=== PATIENT | male | born 1955 | race Caucasian/White ===

== ENCOUNTER → 2019-03-24 | Outpatient (CLI) | payer OTHER ==
[~2019-03-24] MED LIST: ACHD5005 PO; CATHETER FLUSH 10 ML SYR IV PRN; ELQUIS; HOLD METFORMIN - RECEIVED CONTRAST 20 ML VIAL IV SCH; IOHEXOL 350 MG/ML 100 ML (OMNIPAQUE 350) VIAL IV ONE; NS 100 ML (IVPB) BAG IV ONE; SULF1TAB35 PO; TMSL.4C PO
[2019-03-24 16:07] LABS: BUN/CREATININE RATIO 15; CREATININE SERUM 0.88 MG/DL (0.60-1.30); GFR ESTIMATED > 60
== END ==
LOC: RAD 15:00
PROVIDERS: ATTEND Internal Medicine Cardiovascular Disease
DX: I82.412 Acute embolism and thrombosis of left femoral vein (principal); I10 Essential (primary) hypertension; R00.0 Tachycardia, unspecified
CPT/HCPCS: 36415; 82565; 84520

== ENCOUNTER → 2019-03-24 | Outpatient (CLI) | payer OTHER ==
[~2019-03-24] MED LIST changes: -CATHETER FLUSH 10 ML SYR IV PRN; -HOLD METFORMIN - RECEIVED CONTRAST 20 ML VIAL IV SCH; -IOHEXOL 350 MG/ML 100 ML (OMNIPAQUE 350) VIAL IV ONE; -NS 100 ML (IVPB) BAG IV ONE
--- NOTE | 2019-03-24 13:16 | Diagnostic Imaging Report ---
PROCEDURE: US left lower extremity venous. TECHNIQUE: Multiple real-time grayscale images were obtained over the left lower extremity in various projections. Additional duplex Doppler and color Doppler images were also obtained. INDICATION: Leg pain and swelling. COMPARISON: There are no prior studies available for comparison. FINDINGS: There is extensive thrombosis of the deep venous system of the left lower extremity. The thrombus involves the common femoral, superficial femoral, popliteal and anterior and posterior tibial veins. IMPRESSION: 1. There is an extensive deep venous thrombosis of the left lower extremity. 2. These results were called to Lily Peter APRN at 12:15 by our sonologist. CRITICAL FINDING Dictated by: Dictated on workstation # [id number]
== END ==
LOC: RAD 11:43
PROVIDERS: ATTEND Nurse Practitioner Family
DX: R22.42 Localized swelling, mass and lump, left lower limb (principal); R03.0 Elevated blood-pressure reading, without diagnosis of hypertension

== ENCOUNTER 2019-03-28 09:44 | Emergency (ER) | payer OTHER ==
[~2019-03-28] VITALS: Ht 177.7 cm; Wt 106.8 kg
[2019-03-28] MEDS ORDERED: HOLD METFORMIN - RECEIVED CONTRAST 20 ML VIAL IV SCH (10:45)
[2019-03-28] MEDS ORDERED: IOHEXOL 350 MG/ML 100 ML (OMNIPAQUE 350) VIAL IV ONE (10:45)
[2019-03-28] MEDS ORDERED: CATHETER FLUSH 10 ML SYR IV PRN (10:45)
[2019-03-28] MEDS ORDERED: NS 100 ML (IVPB) BAG IV ONE (10:45)
[2019-03-28 10:49] LABS: BILIRUBIN,URINE NEGATIVE (NEGATIVE); CLARITY,URINE SL CLOUDY; COLOR,URINE BROWN; GLUCOSE, URINE (UA) NEGATIVE (NEGATIVE); KETONES,URINE NEGATIVE (NEGATIVE); LEUKOCYTE ESTERASE ,URINE TRACE (NEGATIVE); NITRITE,URINE NEGATIVE (NEGATIVE); PH,URINE 6.5 (5-9); PROTEIN,URINE 2+ (NEGATIVE)
--- NOTE | 2019-03-28 10:53 | ED GU-Male ---
General Chief Complaint: - Urinary Stated Complaint: BLOOD CLOT LEFT LEG Nursing Triage Note: AMB TO ROOM WITH REPORTS THAT MAR 24 WAS DX WITH BLOOD CLOT IN R LEG. STARTED ON ELQUIS NOTICED BLOOD IN URNE BEFORE STARTING ON ELQUIS. HAVNG INTERMITTEN LOW ABD PAIN. Source: patient, family () Exam Limitations: no limitations (CYNTHIA PICKENS MEDICAL STUDENT) History of Present Illness Date Seen by Provider: Mar 28, 2019 Time Seen by Provider: 10:33 Initial Comments Mr. Meléndez is a 63 year-old male presenting to the ED via private vehicle for he maturia. Patient reports that he has had painless hematuria since 03/20/19. This ranges from tea colored to bright red blood. He has a chronic cough for the last 2-3 months and he has found that frequent coughing increases the blood in the urine. Patient was started on Eloquis on 03/24/19 after being diagnosed with a proximal femoral dvt. He did not report the symptoms of hematuria at that time because the hematuria was intermittent and he was not bleeding on that particular day. He also reports a dull ache in the suprapubic region of his abdomen. It does not radiate. He does not describe any true pain, more of an uncomfortable pressure. His cough has been present since December. It is non-productive but has worsened the last two weeks. He is now up at night frequently coughing. He recently went to urgent care and was diagnosed with walking pneumonia and started on Doxycycline. Patient had one episode of fever on 03/25/19. Fever was 100.4 and lasted only one night. He denies nausea, vomiting, or diarrhea. He does admit to 20-lb weight loss in the last 3 months. He attributes this to giving up [employer], which was difficult for him. Patient is a never smoker, does not drink alcohol or use drugs. His occupation is a [employer] seth. (CYNTHIA PICKENS MEDICAL STUDENT) Allergies and Home Medications Allergies Coded Allergies: No Allergy Information Available (Unverified , 03/24/19) Home Medications Hydrocodone Bit/Acetaminophen 1 Tab Tab, 1 EACH PO Q4-6HR PRN for PAIN-MODERATE Prescribed by: VJ MOYER on 03/28/19 1240 Sulfamethoxazole/Trimethoprim 1 Each Tablet, 1 EACH PO BID Prescribed by: VJ MOYER on 03/28/19 1240 Tamsulosin HCl 0.4 Mg Cap, 0.4 MG PO DAILY Prescribed by: VJ MOYER on 03/28/19 1240 Patient Home Medication List Home Medication List Reviewed: Yes (VJ MOYER APRN) Review of Systems Review of Systems Constitutional: chills, fever (1 episode of fever on 03/25/19. Lasted only one day with a temperature of 100.4; afebrile since.), malaise, weight loss (see HPI) EENTM: no symptoms reported, other (Denies visual disturbances, sore throat) Respiratory: see HPI, cough, dyspnea on exertion Gastrointestinal: see HPI, abdominal pain (Dull suprapubic ache. ) Genitourinary: hematuria, other (Denies dysuria, frequency, urgency, incontinence. ) Musculoskeletal: no symptoms reported, other (Denies myalgias or arthralgias) Skin: no symptoms reported, other (No recent rash) Psychiatric/Neurological: Other (Denies parasthesias, anesthesia) (CYNTHIA PICKENS MEDICAL STUDENT) Past Jbtphfm-Qspyba-Ppnrni Hx Patient Social History Recent Foreign Travel: No Contact w/Someone Who Travel: No Recent Infectious Disease Expo: No (CYNTHIA PICKENS MEDICAL STUDENT) Physical Exam Vital Signs Vital Signs - First Documented 03/28/19 10:10 Temp 36.8 Pulse 109 Resp 18 B/P (MAP) 159/100 (119) Pulse Ox 94 O2 Delivery Room Air (VJ MOYER APRN) Vital Signs Capillary Refill : Less Than 3 Seconds (CYNTHIA PICKENS MEDICAL STUDENT) Height, Weight, BMI Height: '" Weight: lbs. oz. kg; 33.00 BMI Method: General Appearance: WD/WN, no apparent distress HEENT: TMs normal, pharynx normal Cardiovascular: regular rate, rhythm, no edema, no murmur Respiratory: lungs clear, normal breath sounds, no respiratory distress Gastrointestinal: normal bowel sounds, soft, tenderness (Mild tenderness in the suprapubic region only. Increased "ache" with pressure) Back: normal inspection, no CVA tenderness Extremities: normal inspection, no pedal edema, no calf tenderness Neurologic/Psychiatric: no motor/sensory deficits, normal mood/affect Skin: normal color, warm/dry (CYNTHIA PICKENS MEDICAL STUDENT) Progress/Results/Core Measures Suspected Sepsis Recent Fever Within 48 Hours: No Infection Criteria Present: None New/Unexplained Altered Menta: No Sepsis Screen: No Definite Risk SIRS Temperature: Pulse: 109 Respiratory Rate: 18 Blood Pressure 159 /100 Mean: 119 (CYNTHIA PICKENS MEDICAL STUDENT) Results/Orders Lab Results Laboratory Tests Test 03/28/19 10:12 03/28/19 10:56 Range/Units Urine Color BROWN H Urine Clarity SL CLOUDY Urine pH 6.5 5-9 Urine Specific [place] 1.025 H 1.016-1.022 Urine Protein 2+ H NEGATIVE Urine Glucose (UA) NEGATIVE NEGATIVE Urine Ketones NEGATIVE NEGATIVE Urine Nitrite NEGATIVE NEGATIVE Urine Bilirubin NEGATIVE NEGATIVE Urine Urobilinogen 1.0 < = 1.0 MG/DL Urine Leukocyte Esterase TRACE NEGATIVE Urine RBC (Auto) 3+ H NEGATIVE Urine RBC TNTC H /HPF Urine WBC 10-25 H /HPF Urine Squamous Epithelial Cells RARE /HPF Urine Crystals PRESENT H /LPF Urine Calcium Oxalate Crystals RARE H /LPF Urine Bacteria NEGATIVE /HPF Urine Casts NONE /LPF Urine Mucus NEGATIVE /LPF Urine Culture Indicated YES White Blood Count 8.9 4.3-11.0 10^3/uL Red Blood Count 5.12 4.35-5.85 10^6/uL Hemoglobin 13.9 13.3-17.7 G/DL Hematocrit 41 40-54 % Mean Corpuscular Volume 81 80-99 FL Mean Corpuscular Hemoglobin 27 25-34 PG Mean Corpuscular Hemoglobin Concent 34 32-36 G/DL Red Cell Distribution Width 14.1 10.0-14.5 % Platelet Count 288 130-400 10^3/uL Mean Platelet Volume 9.4 7.4-10.4 FL Neutrophils (%) (Auto) 74 42-75 % Lymphocytes (%) (Auto) 7 L 12-44 % Monocytes (%) (Auto) 19 H 0-12 % Eosinophils (%) (Auto) 0 0-10 % Basophils (%) (Auto) 0 0-10 % Neutrophils # (Auto) 6.6 1.8-7.8 X 10^3 Lymphocytes # (Auto) 0.6 L 1.0-4.0 X 10^3 Monocytes # (Auto) 1.7 H 0.0-1.0 X 10^3 Eosinophils # (Auto) 0.0 0.0-0.3 10^3/uL Basophils # (Auto) 0.0 0.0-0.1 10^3/uL Neutrophils % (Manual) 78 % Lymphocytes % (Manual) 5 % Monocytes % (Manual) 13 % Eosinophils % (Manual) 0 % Basophils % (Manual) 0 % Band Neutrophils 4 % Blood Morphology Comment NORMAL Sodium Level 132 L 135-145 MMOL/L Potassium Level 4.4 3.6-5.0 MMOL/L Chloride Level 99 98-107 MMOL/L Carbon Dioxide Level 23 21-32 MMOL/L Anion Gap 10 5-14 MMOL/L Blood Urea Nitrogen 11 7-18 MG/DL Creatinine 0.80 0.60-1.30 MG/DL Estimat Glomerular Filtration Rate > 60 BUN/Creatinine Ratio 14 Glucose Level 129 H 70-105 MG/DL Calcium Level 9.5 8.5-10.1 MG/DL Corrected Calcium 10.0 8.5-10.1 MG/DL Total Bilirubin 0.8 0.1-1.0 MG/DL Aspartate Amino Transf (AST/SGOT) 31 5-34 U/L Alanine Aminotransferase (ALT/SGPT) 25 0-55 U/L Alkaline Phosphatase 139 H 40-136 U/L Total Protein 7.9 6.4-8.2 GM/DL Albumin 3.4 3.2-4.5 GM/DL (VJ MOYER APRN) My Orders Orders - VJ MOYER APRN Cbc With Automated Diff (03/28/19 10:35) Comprehensive Metabolic Panel (03/28/19 10:35) Ua Culture If Indicated (03/28/19 10:35) Ed Iv/Invasive Line Start (03/28/19 10:35) Chest Pa/Lat (2 View) (03/28/19 10:40) Urine Culture (03/28/19 10:12) Manual Differential (03/28/19 10:56) Ceftriaxone For Iv Use (Rocephin For I (03/28/19 11:15) Ct Abd/Pelvis Wo(Kidney Stone) (03/28/19 12:03) Ketorolac Injection (Toradol Injection) (03/28/19 13:30) Oxycodone/Apap 5/325mg Tablet (Percocet (03/28/19 13:30) (VJ MOYER APRN) Medications Given in ED Current Medications Medications Dose Ordered Sig/Olga Route Start Time Stop Time Status Last Admin Dose Admin Ceftriaxone Sodium 1000 mg/ Sterile Water 10 ml @ 200 mls/hr ONCE ONCE IV 03/28/19 11:15 03/28/19 11:17 DC 03/28/19 13:10 200 MLS/HR (VJ MOYER APRN) Vital Signs/I&O 03/28/19 10:10 Temp 36.8 Pulse 109 Resp 18 B/P (MAP) 159/100 (119) Pulse Ox 94 O2 Delivery Room Air (VJ MOYER APRN) Vital Signs/I&O Capillary Refill : Less Than 3 Seconds (CYNTHIA PICKENS MEDICAL STUDENT) Blood Pressure Mean: 119 Departure Communication (Admissions) NAME: PRATIK MELÉNDEZ [facility] REC#: [id number] PT STATUS: REG ER : 1955 PHYSICIAN: VJ MOYER APRN ADMIT DATE: 03/28/19/ER Draft Date of Exam:03/28/19 CT ABD/PELVIS WO(KIDNEY STONE) PROCEDURE: CT urinary tract, rule out kidney stone. TECHNIQUE: Multiple contiguous axial images were obtained through the abdomen and pelvis without the use of intravenous contrast. Auto Exposure Controls were utilized during the CT exam to meet ALARA standards for radiation dose reduction. INDICATION: Hematuria for 2 weeks. Patient has prior history of kidney stones. COMPARISON: No prior studies are available for comparison. FINDINGS: The lung bases are clear. Imaging through the lung bases demonstrates the lung bases to be clear. There are two prominent lymph nodes in the anterior mediastinum. The largest node measures 23 mm x 14 mm. The second node measures 17 mm x 11 mm. No discrete liver mass is detected. The gallbladder is unremarkable. No biliary ductal dilatation is seen. The pancreas and spleen are unremarkable. No adrenal mass is detected. There are calculi within both kidneys. A calculus in the mid left kidney measures 10 mm. There is a large calculus located in the right renal pelvis extending into a lower pole infundibulum measuring approximately 26 mm x 11 mm. There is also a 4 mm calculus in the mid right ureter at the level of L3. This does produce some hydronephrosis. No other ureteral calculi are seen. The bladder is unremarkable. The aorta is nonaneurysmal. There are prominent lymph nodes in the central retroperitoneum, left periaortic, and aortocaval locations. A conglomerate of nodes in the left periaortic location at the bifurcation measures approximately 4.0 x 2.7 cm. There are markedly enlarged lymph nodes in the left iliac chain. A left iliac node measures 5.7 x 4.6 cm. There is an obturator node on the left measuring 5.4 x 5.1 cm. There are prominent lymph nodes in the left inguinal region as well. The small and large bowel loops are of normal caliber. There is no obstruction. There is no free fluid or fluid collection. The appendix is unremarkable. The bony structures are nonacute. IMPRESSION: 1. Bilateral nephrolithiasis. There is a 4 mm calculus in the mid right ureter producing mild hydroureteronephrosis. 2. Central retroperitoneal and pelvic lymphadenopathy as well as enlarged lymph nodes in the anterior mediastinum. The findings are most consistent with a lymphoproliferative process such as lymphoma. No other significant abnormality is detected. Dictated on workstation # [id number] Dict: 03/28/19 1213 Trans: 03/28/19 1225 [id number] Interpreted by: VITALIY CHAVEZ MD Electronically signed by: [id number]-I've seen the patient along with medical student and agree with plan of care. His abdomen is round soft and nontender. He's had a cough for a couple of months, no improvement with doxycycline as of yet. He's had hematuria since starting the anticoagulation for DVT left leg. CT scan shows lymphoproliferative process which could represent a lymphoma. He will need to follow up with primary care to facilitate further management of this. I spoke with Dr. Chauncey Quintana who agrees to follow-up on the results of the lymph node biopsy. I spoke with Vitaliy Chavez from radiology here, he just needs an order for CT-guided lymph node biopsy and radiology nurse will call the patient with an appointment time and instructions on how long to hold the Eliquis prior to the biopsy. Results will be sent to Dr. Chauncey Quintana. Patient states he'll go by Chauncey stewards office on the way home to give insurance information and whatever else they might need to facilitate upcoming appointments. (VJ MOYER PROFESSOR OF GRAPHIC DESIGN) Impression Primary Impression: Lymphadenopathy, generalized Additional Impression: Right ureteral stone Disposition: HOME, SELF-CARE Condition: Stable Departure-Patient Inst. Decision time for Depature: 12:39 (VJ MOYER APRN) Referrals: NO,LOCAL PHYSICIAN (PCP) Primary Care Physician Patient Instructions: Kidney Stones (DC), LYMPH NODE SWELLING Add. Discharge Instructions: 1. Pain medication and Flomax as directed. Antibiotics as directed. Follow-up with primary care to further evaluate the lymph node enlargement seen in the chest abdomen and pelvis. Dr. Chauncey Quintana on [address] here in [place] has agreed to see you in follow-up on the lymph node biopsy results. If they have not called U by tomorrow afternoon with an appointment time, call the scheduling department at [phone], tell them you need a lymph node biopsy done, the order is already there and you just need an appointment time. All discharge instructions reviewed with patient and/or family. Voiced understanding. Scripts Sulfamethoxazole/Trimethoprim (Bactrim Ds Tablet) 1 Each Tablet 1 EACH PO BID, #14 TAB Prov: VJ MOYER APRN 03/28/19 Hydrocodone Bit/Acetaminophen (Hydrocodone/Acetaminophen 5/325mg Tablet) 1 Tab Tab 1 EACH PO Q4-6HR PRN for PAIN-MODERATE MDD 10 for 3 Days, #14 TAB Prov: VJ MOYER APRN 03/28/19 Tamsulosin HCl (Flomax) 0.4 Mg Cap 0.4 MG PO DAILY, #20 CAP Prov: VJ MOYER APRN 03/28/19 Copy Copies To 1: CHAUNCEY QUINTANA MD,SHANDAKEN MEDICAL STUDENT Mar 28, 2019 10:53 VJ MOYER APRN Mar 28, 2019 12:41
[2019-03-28 10:58] LABS: BACTERIA,URINE NEGATIVE /HPF; CALCIUM OXALATE CRYSTALS,UR RARE /LPF; RBC,URINE TNTC /HPF; SQUAMOUS EPITHELIAL CELL,UR RARE /HPF
[2019-03-28 11:04] LABS: BASOPHILS % (AUTO) 0 % (0-10); EOSINOPHILS % (AUTO) 0 % (0-10); HEMATOCRIT 41 % (40-54); HEMOGLOBIN 13.9 G/DL (13.3-17.7); LYMPHOCYTES # (AUTO) 0.6 X 10^3 (1.0-4.0); LYMPHOCYTES % (AUTO) 7 % (12-44); MEAN CORPUSCULAR HEMOGLOBIN 27 PG (25-34); MEAN CORPUSCULAR HGB CONC 34 G/DL (32-36); MEAN CORPUSCULAR VOLUME 81 FL (80-99); MEAN PLATELET VOLUME 9.4 FL (7.4-10.4); MONOCYTES # (AUTO) 1.7 X 10^3 (0.0-1.0); MONOCYTES % (AUTO) 19 % (0-12); NEUTROPHILS # (AUTO) 6.6 X 10^3 (1.8-7.8); NEUTROPHILS % (AUTO) 74 % (42-75); PLATELET COUNT 288 10^3/uL (130-400); RED CELL DISTRIBUTION WIDTH 14.1 % (10.0-14.5); WHITE BLOOD COUNT 8.9 10^3/uL (4.3-11.0)
[2019-03-28] MEDS ORDERED: ELQUIS (11:11)
[2019-03-28] MEDS ORDERED: cefTRIAXone FOR IV USE 1,000 MG in WATER (STERILE) FOR INJECTION 10 ML IV ONE (11:15)
[2019-03-28 11:25] LABS: ALANINE AMINOTRANSFERASE 25 U/L (0-55); ALBUMIN 3.4 GM/DL (3.2-4.5); ALKALINE PHOSPHATASE 139 U/L (40-136); BILIRUBIN,TOTAL 0.8 MG/DL (0.1-1.0); BUN/CREATININE RATIO 14; CALCIUM 9.5 MG/DL (8.5-10.1); CARBON DIOXIDE 23 MMOL/L (21-32); CHLORIDE 99 MMOL/L (98-107); GFR ESTIMATED > 60; GLUCOSE 129 MG/DL (70-105); POTASSIUM 4.4 MMOL/L (3.6-5.0); SODIUM 132 MMOL/L (135-145); TOTAL PROTEIN 7.9 GM/DL (6.4-8.2)
[2019-03-28 11:40] LABS: BAND NEUTROPHILS 4 %; BASOPHILS % (MANUAL) 0 %; EOSINOPHILS % (MANUAL) 0 %; LYMPHOCYTES % (MANUAL) 5 %; MONOCYTES % (MANUAL) 13 %; NEUTROPHILS % (MANUAL) 78 %; RBC MORPH NORMAL
--- NOTE | 2019-03-28 12:25 | Diagnostic Imaging Report ---
PROCEDURE: CT urinary tract, rule out kidney stone. TECHNIQUE: Multiple contiguous axial images were obtained through the abdomen and pelvis without the use of intravenous contrast. Auto Exposure Controls were utilized during the CT exam to meet ALARA standards for radiation dose reduction. INDICATION: Hematuria for 2 weeks. Patient has prior history of kidney stones. COMPARISON: No prior studies are available for comparison. FINDINGS: The lung bases are clear. Imaging through the lung bases demonstrates the lung bases to be clear. There are two prominent lymph nodes in the anterior mediastinum. The largest node measures 23 mm x 14 mm. The second node measures 17 mm x 11 mm. No discrete liver mass is detected. The gallbladder is unremarkable. No biliary ductal dilatation is seen. The pancreas and spleen are unremarkable. No adrenal mass is detected. There are calculi within both kidneys. A calculus in the mid left kidney measures 10 mm. There is a large calculus located in the right renal pelvis extending into a lower pole infundibulum measuring approximately 26 mm x 11 mm. There is also a 4 mm calculus in the mid right ureter at the level of L3. This does produce some hydronephrosis. No other ureteral calculi are seen. The bladder is unremarkable. The aorta is nonaneurysmal. There are prominent lymph nodes in the central retroperitoneum, left periaortic, and aortocaval locations. A conglomerate of nodes in the left periaortic location at the bifurcation measures approximately 4.0 x 2.7 cm. There are markedly enlarged lymph nodes in the left iliac chain. A left iliac node measures 5.7 x 4.6 cm. There is an obturator node on the left measuring 5.4 x 5.1 cm. There are prominent lymph nodes in the left inguinal region as well. The small and large bowel loops are of normal caliber. There is no obstruction. There is no free fluid or fluid collection. The appendix is unremarkable. The bony structures are nonacute. IMPRESSION: 1. Bilateral nephrolithiasis. There is a 4 mm calculus in the mid right ureter producing mild hydroureteronephrosis. 2. Central retroperitoneal and pelvic lymphadenopathy as well as enlarged lymph nodes in the anterior mediastinum. The findings are most consistent with a lymphoproliferative process such as lymphoma. No other significant abnormality is detected. Dictated by: Dictated on workstation # [id number]
--- NOTE | 2019-03-28 12:25 | Diagnostic Imaging Report ---
Clinical indication: Patient with walking pneumonia and has had a cough for 3 to 4 weeks. Exam: Chest x-ray PA and lateral views. Comparisons: None. Findings: Lungs/pleura: There is mild increased lung markings to both lungs which may be from chronic lung changes. There is minimal atelectasis or scarring in the periphery of both lung bases. There is no lung infiltrate. There is no pneumothorax. There is no pleural effusion. Mediastinum: There is mild prominence of the bilateral perihilar regions which may be related to lymphadenopathy. Pulmonary vasculature: Unremarkable. Heart: Unremarkable. Bones/extrathoracic soft tissue: There are mild hypertrophic spurs involving the thoracic spine. Impression: 1: There is no lung infiltrate or consolidation. There is minimal bibasilar atelectasis versus scarring. Mild chronic lung changes are seen. 2: There is mild prominence of the bilateral perihilar regions which may be related to lymphadenopathy. Dictated by: Dictated on workstation # [id number]
[2019-03-28] MEDS ORDERED: ACHD5005 PO (12:40)
[2019-03-28] MEDS ORDERED: TMSL.4C PO (12:40)
[2019-03-28] MEDS ORDERED: SULF1TAB35 PO (12:40)
[2019-03-28] MEDS ORDERED: oxyCODONE/APAP 5/325MG (PERCOCET 5) TABLET PO ONE (13:30)
[2019-03-28] MEDS ORDERED: KETOROLAC 30 MG/ML VIAL IVP ONE (13:30)
[2019-03-28 13:40] VITALS: BP 156/100
== END 2019-03-28 13:48 | disposition home or self-care (01) ==
LOC: EDUNIT# 09:44 → ER 09:44
DX: R59.1 Generalized enlarged lymph nodes (principal); N13.2 Hydronephrosis with renal and ureteral calculous obstruction; Z79.01 Long term (current) use of anticoagulants; Z86.718 Personal history of other venous thrombosis and embolism
CPT/HCPCS: 36415; 71046; 74176; 80053; 81000; 85007; 85027; 87088

== ENCOUNTER 2019-04-01 06:25 | Outpatient (CLI) | payer OTHER ==
[2019-04-01] VITALS (9 sets, daily range): BP systolic 139–155; BP diastolic 79–100
[~2019-04-01] VITALS: Ht 180.3 cm; Wt 106.8 kg
[2019-04-01 07:13] LABS: HEMOGLOBIN 12.7 G/DL (13.3-17.7); MEAN PLATELET VOLUME 9.1 FL (7.4-10.4); RED CELL DISTRIBUTION WIDTH 14.1 % (10.0-14.5); WHITE BLOOD COUNT 7.2 10^3/uL (4.3-11.0)
[2019-04-01 07:24] LABS: INR 1.3 (0.8-1.4)
[2019-04-01] MEDS ORDERED: NS IV 1000 ML 1,000 ML IV STA (08:08)
[2019-04-01] MEDS ORDERED: fentaNYL INJECTION 100 MCG/2 ML AMP IVP ONE (08:15)
[2019-04-01] MEDS ORDERED: LIDOCAINE 1% INJ 20 ML 20 ML VIAL INJ ONE (08:15)
[2019-04-01] MEDS ORDERED: MIDAZOLAM 2 MG/2 ML (VERSED) VIAL IVP ONE (08:15)
[2019-04-01] MEDS ORDERED: HYDROcodone/APAP 5 MG/325 MG (LORTAB) TAB PO PRN (09:30)
--- NOTE | 2019-04-01 09:32 | Pre-Op Note & Conscious Sedat ---
Pre-Operative Progress Note H&P Reviewed The H&P was reviewed, patient examined and no changes noted. Date H&P Reviewed: Apr 01, 2019 Time H&P Reviewed: 08:00 Pre-Op Diagnosis: Lymphadenopathy Conscious Sedation Pre-Proced Time 08:00 ASA Score 2 For ASA 3 and 4: Consider anesthesia and medical clearance. Also, for patients with a history of failed moderate sedation consider anesthesia. Airway Lungs Heart ASA score ASA 1: a normal healthy patient ASA 2: a patient with a mild systemic disease (mid diabetes, controlled hypertension, obesity ASA 3: a patient with a severe systemic disease that limits activity (angina, COPD, prior Myocardial infarction) ASA 4: a patient with an incapacitating disease that is a constant threat to life (CHF, renal failure) ASA 5: a moribund patient not expected to survive 24 hrs. (ruptured aneurysm) ASA 6: a declared brain- patient whose organs are being harvested. For emergent operations, add the letter E after the classification Mallampati Classification Grade 2 Sedation Plan Analgesia, Amnesia, Plan communicated to team members, Discussed options with patient/fam, Discussed risks with patient/fam The patient is an appropriate candidate to undergo the planned procedure, sedation, and anesthesia. The patient immediately re-assessed prior to indication. YAW QUACH MD Apr 01, 2019 09:32
--- NOTE | 2019-04-01 11:05 | Diagnostic Imaging Report ---
INDICATION: Left iliac lymphadenopathy. Patient presents for CT-guided biopsy. TECHNIQUE: All CT scans use one or more of the following dose optimizing techniques: automated exposure control, MA and/or KvP adjustment based on a patient size and exam type, or iterative reconstruction. PROCEDURE: Patient was brought to the CT suite and placed on the table in the supine position. Axial imaging through the lower abdomen and pelvis was performed to evaluate appropriate entry site. The study was performed utilizing conscious sedation with radiology nursing and constant patient monitoring. Patient was administered a total of 100 mcg of fentanyl intravenously and 1 mg of Versed intravenously. Total procedure time 7 minutes. Left lower quadrant was prepped and draped in usual sterile fashion. A small amount of 1% lidocaine was utilized for local anesthesia. An 18-gauge coaxial Temno needle was advanced and placed within enlarged left iliac lymph node. A total of five core biopsies were obtained. Needle was withdrawn and hemostasis was obtained using manual compression. Patient tolerated the procedure well and left the department in stable condition. IMPRESSION: Successful CT-guided core biopsy of enlarged lymph node in the left iliac region, utilizing conscious sedation. Pathology results are currently pending. Dictated by: Dictated on workstation # [id number]
== END 2019-04-01 11:35 | disposition home or self-care (01) ==
LOC: RAD 06:25 → SDC 09:22 → RAD 11:35
PROVIDERS: ATTEND Nurse Practitioner Family
DX: C81.7 Other Hodgkin lymphoma (principal); I82.409 Acute embolism and thrombosis of unspecified deep veins of unspecified lower extremity
CPT/HCPCS: 36415; 77012; 85027; 85610; 85730; 99156

== ENCOUNTER 2019-04-19 05:41 | Outpatient (CLI) | payer OTHER ==
[~2019-04-19] VITALS: Ht 172.7 cm; Wt 100.9 kg
[2019-04-19] MEDS ORDERED: APIX5TAB PO (13:18)
[2019-04-21] MEDS ORDERED: HYDR-34 PO (09:05)
== END 2019-04-19 13:19 | disposition home or self-care (01) ==
LOC: PREOP 05:41
PROVIDERS: ATTEND Surgery
DX: Z01.818 Encounter for other preprocedural examination (principal)

== ENCOUNTER 2019-05-02 05:34 | Outpatient (CLI) | payer OTHER ==
[~2019-05-02] VITALS: Ht 173 cm; Wt 100.9 kg
[~2019-05-02 05:34] MED LIST changes: +APIX5TAB PO; +HYDR-34 PO
[2019-05-04] MEDS ORDERED: HYDR15SO6 PO (13:15)
== END 2019-05-02 10:47 | disposition home or self-care (01) ==
LOC: PREOP 05:34
PROVIDERS: ATTEND Surgery
DX: Z01.818 Encounter for other preprocedural examination (principal)

== ENCOUNTER → 2019-05-03 | Outpatient (CLI) | payer OTHER ==
[~2019-05-03] MED LIST changes: +HYDR15SO6 PO
--- NOTE | 2019-05-04 08:24 | Diagnostic Imaging Report ---
PET/CT. INDICATION: Hodgkin's lymphoma, initial. EXAMINATION: After intravenous administration of 13.75 mCi of F18-FDG into the left antecubital fossa, a series of overlapping emission and transmission PET images was obtained. In the coronal, transaxial and sagittal planes, the area imaged extended from the skull base through the upper thighs. FINDINGS: Height is 5' 8", weight 222 lbs, and his blood glucose level was 91. There are no prior PET/CT examinations available for comparison. The CT abdomen/pelvis exam of 03/28/2019 did show central peritoneal and pelvic lymphadenopathy as well as enlarged lymph nodes in the anterior mediastinum. Reportedly, the patient has been recently diagnosed with Hodgkin's lymphoma. On this exam, there is intense hypermetabolic activity throughout numerous enlarged lymph nodes. The largest collection of nodes is in the left retroperitoneal and pelvic area. These nodes have a maximum SUV of 17.85. There is also a large subcarinal hypermetabolic mass with a maximum SUV of 13.7. Bilateral hilar and mediastinal nodes are also noted as well as hypermetabolic nodes in the left supraclavicular region. Inguinal adenopathy is noted as well. In addition to the soft tissue adenopathy, the spleen is also intensely hypermetabolic with a maximum SUV of 6.6. The spleen is prominent but not significantly enlarged. There are also hypermetabolic nodes in the kassie hepatis and there is even an isolated area of hypermetabolic activity in the right lobe of the liver. This has a maximum SUV of 6.9. In addition to the soft tissue involvement by neoplasm, there are also multiple foci of abnormal uptake in the osseous structures. The humeri and scapula are involved as well as numerous vertebral bodies of the cervical, thoracic, and lumbar spine. There are also areas of abnormal uptake within the sternum and ribs, the pelvis, and the femurs. The CT images failed to show any sign of an acute abnormality. There is a large 1.4 x 2.4 cm calculus in the right renal pelvis. A 0.4 x 0.9 cm calculus is also seen in the inferior pole of the left kidney. These findings were also present on the prior exam. The previous exam also noted a 4 mm calculus in the mid right ureter. This was producing partial obstruction of the right collecting system. That calculus appears to have passed into the bladder (image [id number]). IMPRESSION: 1. There are innumerable bulky hypermetabolic nodes in the retroperitoneum and pelvis on the left as well as the subcarinal region and néstor, the left supraclavicular region, and the kassie hepatis. The spleen is also hypermetabolic and there is an isolated lesion in the right lobe of the liver. Numerous bony lesions are evident as well. This appearance would be consistent with widespread neoplastic disease. 2. The obstruction of the right collecting system seen on the previous exam has diminished as the obstructive calculus is now present within the bladder. There are still large nonobstructive calculi in both kidneys. 3. There is no acute abnormality identified. Dictated by: Dictated on workstation # [id number]
== END ==
LOC: RAD 10:20
PROVIDERS: ATTEND Internal Medicine Hematology & Oncology
DX: C81.90 Hodgkin lymphoma, unspecified, unspecified site (principal); N21.0 Calculus in bladder

== ENCOUNTER 2019-05-04 11:20 | Day surgery (SDC) | payer OTHER ==
[2019-05-04] VITALS (8 sets, daily range): BP systolic 119–138; BP diastolic 79–86
[~2019-05-04] VITALS: Ht 172.7 cm; Wt 97.7 kg
[~2019-05-04 11:20] MED LIST changes: -HYDR15SO6 PO
[2019-05-04] MEDS ORDERED: LIDOCAINE PF 2% 5 ML (XYLOCAINE) VIAL ONE (11:50)
[2019-05-04] MEDS ORDERED: proPOfol 200 MG/20 ML (DIPRIVAN) VIAL IV ONE (11:50)
[2019-05-04] MEDS ORDERED: MIDAZOLAM 2 MG/2 ML (VERSED) VIAL ONE (11:50)
[2019-05-04] MEDS ORDERED: KETAMINE/NaCl 50 MG/5 ML SYRINGE (ED ONLY) ONE (11:50)
[2019-05-04] MEDS ORDERED: LACTATED RINGERS 1,000 ML IV PRN (11:51)
[2019-05-04] MEDS ORDERED: CATHETER FLUSH 10 ML SYR IV PRN (12:00)
[2019-05-04] MEDS ORDERED: ceFAZolin 2 GM/50 ML NS 50 ML IV ONE (12:00)
[2019-05-04] MEDS ORDERED: 0.9% SODIUM CHLORIDE PF INJ 20 ML VIAL ONE (12:24)
[2019-05-04] MEDS ORDERED: HEParin (CENTRAL IV FLUSH) 500 UNIT/5 ML SYR ONE (12:24)
[2019-05-04] MEDS ORDERED: BUP/EPI 0.5% 1:200,000 (SENSORCAINE) 30 ML VIAL ONE (12:24)
--- NOTE | 2019-05-04 13:13 | Progress Note-Pre Operative ---
Pre-Operative Progress Note H&P Reviewed The H&P was reviewed, patient examined and no changes noted. Date Seen by Provider: May 04, 2019 Time Seen by Provider: 13:00 Date H&P Reviewed: May 04, 2019 Time H&P Reviewed: 13:00 Pre-Operative Diagnosis: lymphoma MANJINDER YOU MD May 04, 2019 13:13
[2019-05-04] MEDS ORDERED: ACETAMINOPHEN 325 MG TABLET PO PRN (13:15)
[2019-05-04] MEDS ORDERED: ONDANSETRON 4 MG/2 ML (SDV) Z0FRAN IVP PRN (13:15)
[2019-05-04] MEDS ORDERED: HYDROcodone/APAP 5 MG/325 MG (LORTAB) TAB PO PRN (13:15)
[2019-05-04] MEDS ORDERED: HYDR15SO6 PO (13:15)
[2019-05-04] MEDS ORDERED: morphine INJ 10 MG/ML 1ML (SYR OR VIAL) IVP PRN ×2 (13:15)
--- NOTE | 2019-05-04 13:16 | Discharge Inst-Surgical ---
D/C Lap Instructions-KIDO New, Converted, or Re-Newed RX: RX on Chart Follow Up PRN Activity as tolerated Ok to access and use port at any time. Regular Diet Symptoms to Report: Fever over 101 degree F, Nausea/Vomiting Infection Signs and Symptoms to report: Increased redness, Foul odor of wound, Increased drainage Bathing instructions: May shower Operative Area Clean/Dry; Keep incision clean/dry If any problems/questions: Contact your physician or go to Emergency Room MANJINDER YOU MD May 04, 2019 13:16
--- NOTE | 2019-05-04 14:07 | Progress Note-Post Operative ---
Post-Operative Progess Note Surgeon (s)/Labeling Strategist (s) Surgeon MANJINDER YOU MD Labeling Strategist: none Pre-Operative Diagnosis lymphoma Post-Operative Diagnosis same Procedure & Operative Findings Date of Procedure 05/04/19 Procedure Performed/Findings left subclavian groshong cath placement under flouroscopy. Anesthesia Type mac with local Estimated Blood Loss Estimated blood loss (mL): minimal Specimens/Packing Specimens Removed none MANJINDER YOU MD May 04, 2019 14:07
--- NOTE | 2019-05-04 14:28 | Diagnostic Imaging Report ---
INDICATION: Undergoing catheter placement. TECHNIQUE: One intraprocedural image of the central upper chest. FINDINGS/ IMPRESSION: The hospital radiology department provided fluoroscopic imaging for the clinical service in support of an interventional procedure. A radiologist was not involved in the procedure. Please reference the operating provider's procedure note. Fluoroscopy Time: 5.7 seconds. Limited intraprocedural imaging of the upper chest demonstrates portions of a central line with tip over the right paramediastinal region. Dictated by: Dictated on workstation # [id number]
--- NOTE | 2019-05-04 14:45 | Diagnostic Imaging Report ---
Indication: PICC line placement Portable chest 2:34 PM There is bilateral hilar lymphadenopathy which is increased in size compared to exam dated 03/28/2019. Left subclavian Groshong catheter tip projects over the SVC. Lungs are clear. There are no effusions or pneumothoraces. IMPRESSION: Bilateral hilar lymphadenopathy Dictated by: Dictated on workstation # [id number]
--- NOTE | 2019-05-04 15:21 | NUR ---
HYDROCODONE RX NOT FOUND ON CHART, PT STATES HE DOES NOT FEEL LIKE HE NEEDS ONE. DR YOU ON UNIT AND UPDATED. PT TO CALL OFFICE IF NEED CHANGES.
--- NOTE | 2019-05-04 20:21 | OPERATIVE REPORT ---
DATE OF SERVICE: 05/04/2019 ATTENDING PRIMARY CARE PHYSICIAN: Dr. Chauncey Sagastume. INDICATIONS: The patient is a 63-year-old male who was referred over to us for left inguinal lymph node biopsy. He had reported in the middle of 03/2019, he was having issues with shortness of breath, cough and presented to urgent care and was diagnosed with pneumonia, started on antibiotics. He presented again on 03/24/2019 with left thigh swelling and was found to have a lower extremity DVT and was started on Eliquis. He also developed hematuria and underwent a chest x-ray and CT scan of the abdomen and was found to have bilateral nephrolithiasis and an incidental finding of lymphadenopathy of the inferior mediastinum and central retroperitoneal area left periaortic region and aortocaval region. There was also prominent, but smaller nodes of the left inguinal region. This was biopsied and consistent with a non-Hodgkin's lymphoma. He will require a Groshong implantable catheter for long-term IV access for chemotherapy administration. DESCRIPTION OF PROCEDURE: The patient was brought to the operating room, laid supine on the table. After adequate IV pain and sedative medications and monitored anesthesia care, the chest and neck were prepped and draped in standard surgical fashion. A 1% lidocaine with epinephrine was then used to anesthetize overlying skin in the left subclavian region. The left subclavian vein was then cannulated with drawing of venous blood. The guidewire was then inserted under fluoroscopy. A skin incision was then made using 15 blade and the dilator and sheath were then introduced over the guidewire. Dilator and guidewire were then removed and the Groshong catheter was placed until the catheter tip was at the superior vena caval -- right atrial junction. The sheath was then removed and the inner wire within the catheter was then removed. The catheter cut down to size and port placed onto the catheter. The skin incision was then extended laterally and a subcutaneous chest reservoir was then created between the subcutaneous fat as well as the anterior pectoralis fascia using blunt dissection as well as electrocautery with visualization of good hemostasis. The port was then placed in the reservoir and sutured to the anterior pectoralis fascia using interrupted 3-0 Vicryl sutures. The subcutaneous tissue was then reapproximated using 3-0 Vicryl interrupted sutures and the skin was closed using 4-0 Monocryl running subcuticular suture. Wound was then cleaned and covered with Dermabond. The patient tolerated the procedure well. We will get a post-procedure chest x-ray and once confirmation of placement, the catheter may be accessed and used at any time. Job ID: [id number] DocumentID: [id number] Dictated Date: 05/04/2019 14:12:04 Purchasing Agent Date: 05/04/2019 20:21:25 Dictated By: MANJINDER YOU MD
== END 2019-05-04 15:18 | disposition home or self-care (01) ==
LOC: SDC 11:20
PROVIDERS: ATTEND Surgery
DX: C81.90 Hodgkin lymphoma, unspecified, unspecified site (principal); I10 Essential (primary) hypertension; E66.9 Obesity, unspecified; Z79.01 Long term (current) use of anticoagulants; Z79.899 Other long term (current) drug therapy; Z68.32 Body mass index [BMI] 32.0-32.9, adult; Z80.0 Family history of malignant neoplasm of digestive organs
CPT/HCPCS: 71045; 87081

== ENCOUNTER → 2019-05-05 | Outpatient (CLI) | payer OTHER ==
[~2019-05-05] MED LIST changes: +CATHETER FLUSH 10 ML SYR IV PRN; +HEParin (CENTRAL IV FLUSH) 500 UNIT/5 ML SYR ONE; +HYDR15SO6 PO
--- NOTE | 2019-05-05 10:04 | Diagnostic Imaging Report ---
INDICATION: Hodgkin's lymphoma. No prior studies are available for comparison. Patient was administered 30.2 mCi technetium 99m pertechnetate labeled to the patient's red blood cells and 1st pass cardiac gated imaging was performed. Left ventricular ejection fraction is calculated to be 50%. IMPRESSION: Left ventricular ejection fraction of 50%. Dictated by: Dictated on workstation # [id number]
== END ==
LOC: CARD 08:52
PROVIDERS: ATTEND Internal Medicine Hematology & Oncology
DX: Z01.810 Encounter for preprocedural cardiovascular examination (principal); C81.90 Hodgkin lymphoma, unspecified, unspecified site
CPT/HCPCS: 78472

== ENCOUNTER 2019-06-03 13:41 | Emergency (ER) | payer OTHER ==
[~2019-06-03] VITALS: Ht 120 cm; Wt 91.0 kg
[~2019-06-03 13:41] MED LIST changes: -CATHETER FLUSH 10 ML SYR IV PRN; -HEParin (CENTRAL IV FLUSH) 500 UNIT/5 ML SYR ONE
[2019-06-03] MEDS ORDERED: KETOROLAC 30 MG/ML VIAL IVP ONE (13:45)
[2019-06-03] MEDS ORDERED: NS IV 1000 ML 1,000 ML IV SCH (13:45)
[2019-06-03] MEDS ORDERED: ONDANSETRON 4 MG/2 ML (SDV) Z0FRAN IVP ONE (13:45)
--- OUTSIDE RECORDS SUMMARY | 2019-06-03 13:47 | XMS REPORT | Continuity of Care Document ---
Author Organization Unknown Address Unknown Phone Unavailable Allergies Active Description Code Type Severity Reaction Onset Reported/Identified Relationship to Patient Clinical Status Yes No Allergy Information Available [id number] Drug Allergy Unknown N/A 020 Yes No Known Drug Allergies [id number] Drug Allergy Unknown N/A 04/19/2019 Medications There is no data. Problems Date Dx Coded Attending Type Code Diagnosis Diagnosed By 03/28/2019 RAYMOND BUCK APRN, Ot R03 .0 ELEVATED BLOOD-PRESSURE READING, W/O DANE 03/28/2019 RAYMOND BUCK APRN Ot R22.42 LOCALIZED SWELLING, MASS AND LUMP, LEFT 03/28/2019 ROMI DU MD Ot I10 ESSENTIAL (PRIMARY) HYPERTENSION 03/28/2019 ROMI DU MD Ot I82.412 ACUTE EMBOLISM AND THROMBOSIS OF LEFT FE 03/28/2019 ROMI DU MD Ot R00. 0 TACHYCARDIA, UNSPECIFIED 03/28/2019 VJ MOYER APRN Ot N13 .2 HYDRONEPHROSIS WITH RENAL AND URETERAL C 03/28/2019 VJ MOYER APRN Ot R59 .1 GENERALIZED ENLARGED LYMPH NODES 03/28/2019 VJ MOYER APRN Ot Z79.01 MANAGER INFRASTRUCTURE (CURRENT) USE OF ANTICOAGULANT 03/28/2019 VJ MOYER APRN Ot Z86.718 PERSONAL HISTORY OF OTHER VENOUS THROMBO 03/30/2019 VJ MOYER APRN Ot N13 .2 HYDRONEPHROSIS WITH RENAL AND URETERAL C 03/30/2019 VJ MOYER APRN Ot R59 .1 GENERALIZED ENLARGED LYMPH NODES 03/30/2019 VJ MOYER APRN Ot Z79.01 CARE HOME (CURRENT) USE OF ANTICOAGULANT 03/30/2019 VJ MOYER APRN Ot Z86.718 PERSONAL HISTORY OF OTHER VENOUS THROMBO 03/30/2019 RAYMOND BUCK APRN Ot R03 .0 ELEVATED BLOOD-PRESSURE READING, W/O DANE 03/30/2019 CORNEL BUCKN Fawn KEKE Ot R22.42 LOCALIZED SWELLING, MASS AND LUMP, LEFT 04/01/2019 CIELO, RAYMOND Fawn KEKE Ot R03 .0 ELEVATED BLOOD-PRESSURE READING, W/O DANE 04/01/2019 CIELO, RAYMOND Fawn KEKE Ot R22.42 LOCALIZED SWELLING, MASS AND LUMP, LEFT 04/01/2019 ROMI DU MD, Ot I10 ESSENTIAL (PRIMARY) HYPERTENSION 04/01/2019 ROMI DU MD, Ot I82.412 ACUTE EMBOLISM AND THROMBOSIS OF LEFT FE 04/01/2019 ROMI DU MD Ot R00. 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 0 TACHYCARDIA, UNSPECIFIED 04/19/2019 MANJINDER YOU MD Ot Z01.81 8 ENCOUNTER FOR OTHER PREPROCEDURAL EXAMIN 04/21/2019 MANJINDER YOU MD Ot Z01.81 8 ENCOUNTER FOR OTHER PREPROCEDURAL EXAMIN 04/21/2019 MANJINDER YOU MD Ot C81.15 NODLR SCLER HDGKN LYMPH, NODES OF ING RE 04/21/2019 MANJINDER YOU MD Ot E66.9 OBESITY, UNSPECIFIED 04/21/2019 MANJINDER YOU MD Ot I10 ESSENTIAL (PRIMARY) HYPERTENSION 04/21/2019 MANJINDER YOU MD Ot I82.40 2 ACUTE EMBOLISM AND THOMBOS UNSP DEEP VEI 04/21/2019 MANJINDER YOU MD Ot Z68.33 BODY MASS INDEX (BMI) 33.0-33.9, ADULT 04/21/2019 MANJINDER YOU MD Ot Z79.01 CARE HOME (CURRENT) USE OF ANTICOAGULANT 04/21/2019 MANJINDER YOU MD Ot Z79.89 9 OTHER CARE HOME (CURRENT) DRUG THERAPY 04/21/2019 MANJINDER YOU MD Ot Z80.0 FAMILY HISTORY OF MALIGNANT NEOPLASM OF 04/21/2019 MANJINDER YOU MD Ot Z88.5 ALLERGY STATUS TO NARCOTIC AGENT STATUS 04/29/2019 MANJINDER YOU MD Ot C81.15 NODLR SCLER HDGKN LYMPH, NODES OF ING RE 04/29/2019 MANJINDER YOU MD Ot E66.9 OBESITY, UNSPECIFIED 04/29/2019 MANJINDER YOU MD Ot I10 ESSENTIAL (PRIMARY) HYPERTENSION 04/29/2019 MANJINDER YOU MD Ot I82.40 2 ACUTE EMBOLISM AND THOMBOS UNSP DEEP VEI 04/29/2019 MANJINDER YOU MD Ot Z68.33 BODY MASS INDEX (BMI) 33.0-33.9, ADULT 04/29/2019 MANJINDER YOU MD Ot Z79.01 CARE HOME (CURRENT) USE OF ANTICOAGULANT 04/29/2019 MANJINDER YOU MD Ot Z79.89 9 OTHER CARE HOME (CURRENT) DRUG THERAPY 04/29/2019 MANJINEDR YOU MD Ot Z80.0 FAMILY HISTORY OF MALIGNANT NEOPLASM OF 04/29/2019 MANJINDER YOU MD Ot Z88.5 ALLERGY STATUS TO NARCOTIC AGENT STATUS 04/29/2019 MICHAEL LYNN MD Ot I10 ESSENTIAL (PRIMARY) HYPERTENSION 04/29/2019 MICHAEL LYNN MD Ot R63.4 ABNORMAL WEIGHT LOSS 04/29/2019 MICHAEL LYNN MD Ot Z86.718 PERSONAL HISTORY OF OTHER VENOUS THROMBO 04/29/2019 RAYMOND BUCK APRN Ot R03 .0 ELEVATED BLOOD-PRESSURE READING, W/O DANE 04/29/2019 RAYMOND BUCK KEKE Ot R22.42 LOCALIZED SWELLING, MASS AND LUMP, LEFT 04/29/2019 ROMI DU MD, Ot I10 ESSENTIAL (PRIMARY) HYPERTENSION 04/29/2019 ROMI DU MD, Ot I82.412 ACUTE EMBOLISM AND THROMBOSIS OF LEFT FE 04/29/2019 ROMI DU MD, Ot R00. 0 TACHYCARDIA, UNSPECIFIED 04/29/2019 MICHAEL LYNN MD, Ot I10 ESSENTIAL (PRIMARY) HYPERTENSION 04/29/2019 MICHAEL LYNN MD Ot R63.4 ABNORMAL WEIGHT LOSS 04/29/2019 MICHAEL LYNN MD, Ot Z86.718 PERSONAL HISTORY OF OTHER VENOUS THROMBO 05/02/2019 MICHAEL LYNN MD, Ot I10 ESSENTIAL (PRIMARY) HYPERTENSION 05/02/2019 MICHAEL LYNN MD, Ot R63.4 ABNORMAL WEIGHT LOSS 05/02/2019 MICHAEL LYNN MD, Ot Z86.718 PERSONAL HISTORY OF OTHER VENOUS THROMBO 05/02/2019 MANJINDER YOU MD, Ot Z01.81 8 ENCOUNTER FOR OTHER PREPROCEDURAL EXAMIN 05/04/2019 MANJINDER YOU MD, Ot C81.15 NODLR SCLER HDGKN LYMPH, NODES OF ING RE 05/04/2019 MANJINDER YOU MD, Ot E66.9 OBESITY, UNSPECIFIED 05/04/2019 MANJINDER YOU MD, Ot I10 ESSENTIAL (PRIMARY) HYPERTENSION 05/04/2019 MANJINDER YOU MD, Ot I82.40 2 ACUTE EMBOLISM AND THOMBOS UNSP DEEP VEI 05/04/2019 MANJINDER YOU MD, Ot Z68.33 BODY MASS INDEX (BMI) 33.0-33.9, ADULT 05/04/2019 MANJINDER YOU MD, Ot Z79.01 CARE HOME (CURRENT) USE OF ANTICOAGULANT 05/04/2019 MANJINDER YOU MD, Ot Z79.89 9 OTHER MANAGER INFRASTRUCTURE (CURRENT) DRUG THERAPY 05/04/2019 MANJINDER YOU MD, Ot Z80.0 FAMILY HISTORY OF MALIGNANT NEOPLASM OF 05/04/2019 MANJINDER YOU MD, Ot Z88.5 ALLERGY STATUS TO NARCOTIC AGENT STATUS 05/04/2019 MANJINDER YOU MD, Ot C81.90 HODGKIN LYMPHOMA, UNSPECIFIED, UNSPECIFI 05/04/2019 MANJINDER YOU MD Ot E66.9 OBESITY, UNSPECIFIED 05/04/2019 MANJINDER YOU MD Ot I10 ESSENTIAL (PRIMARY) HYPERTENSION 05/04/2019 MANJINDER YOU MD, Ot Z68.32 BODY MASS INDEX (BMI) 32.0-32.9, ADULT 05/04/2019 MANJINDER YOU MD, Ot Z79.01 CARE HOME (CURRENT) USE OF ANTICOAGULANT 05/04/2019 MANJINDER YOU MD, Ot Z79.89 9 OTHER CARE HOME (CURRENT) DRUG THERAPY 05/04/2019 MANJINDER YOU MD, Ot Z80.0 FAMILY HISTORY OF MALIGNANT NEOPLASM OF 05/05/2019 MICHAEL LYNN MD, Ot C81.90 HODGKIN LYMPHOMA, UNSPECIFIED, UNSPECIFI 05/05/2019 MICHAEL LYNN MD Ot N21.0 CALCULUS IN BLADDER 05/11/2019 MICHAEL LYNN MD Ot C81.90 HODGKIN LYMPHOMA, UNSPECIFIED, UNSPECIFI 05/11/2019 MICHAEL LYNN MD Ot Z01.810 ENCOUNTER FOR PREPROCEDURAL CARDIOVASCUL 05/17/2019 MICHAEL LYNN MD Ot I10 ESSENTIAL (PRIMARY) HYPERTENSION 05/17/2019 MICHAEL LYNN MD Ot R63.4 ABNORMAL WEIGHT LOSS 05/17/2019 MICHAEL LYNN MD Ot Z86.718 PERSONAL HISTORY OF OTHER VENOUS THROMBO 05/17/2019 MICHAEL LYNN MD Ot C81.90 HODGKIN LYMPHOMA, UNSPECIFIED, UNSPECIFI 05/17/2019 MICHAEL LYNN MD Ot N21.0 CALCULUS IN BLADDER 05/17/2019 MICHAEL LYNN MD Ot C81.90 HODGKIN LYMPHOMA, UNSPECIFIED, UNSPECIFI 05/17/2019 MICHAEL LYNN MD Ot Z01.810 ENCOUNTER FOR PREPROCEDURAL CARDIOVASCUL Procedures There is no data. Results Test Result Range [id number] - 03/24/19 15:37 Serum or plasma urea nitrogen measurement (mass/volume ) 13 mg/dL 7-18 Serum or plasma creatinine measurement (mass/volume) 0.88 mg/dL 0.60-1.30 Serum or plasma urea nitrogen/creatinine mass ratio 15 NRG Serum or plasma creatinine measurement w ith calculation of estimated glomerular filtration rate > NRG Complete urinalysis with reflex to cultu re - 03/28/19 10:12 Urine color determination BROWN NRG Urine clarity determination SL CLOUDY N RG Urine pH measurement by test strip 6.5 5-9 Specific gravity of urine by test strip 1.025 1.016-1.022 Urine protein assay by test strip, semi-quantitative 2+ NEGATIVE Urine glucose detection by automated test strip NE GATIVE NEGATIVE Erythrocytes detection in urine sediment by light micr oscopy 3+ NEGATIVE Urine ketones detection by automated test strip NE GATIVE NEGATIVE Urine nitrite detection by test strip NEGATIVE NEGATIVE Urine total bilirubin detection by test strip NEGA TIVE NEGATIVE Urine urobilinogen measurement by automated test strip (mass/volume) 1.0 mg/dL < = 1.0 Urine leukocyte esterase detection by dipstick TRA CE NEGATIVE Automated urine sediment erythrocyte cou nt by microscopy (number/high power field) TNTC NRG Automated urine sediment leukocyte count by microscopy (number/high power field) [HPF] NRG Bacteria detection in urine sediment by light microsco py NEGATIVE NRG Squamous epithelial cells detection in u rine sediment by light microscopy RARE NRG Crystals detection in urine sediment by light microsco py PRESENT NRG Casts detection in urine sediment by light microscopy NONE NRG Mucus detection in urine sediment by light microscopy NEGATIVE NRG Complete urinalysis with reflex to culture YES NRG Calcium oxalate crystals detection in ur ine sediment by light microscopy RARE NRG Bacterial urine culture - 03/28/19 10:12 Bacterial urine culture NG NRG Complete blood count (CBC) with automate d white blood cell (WBC) differential - 03/28/19 10:56 Blood leukocytes automated count (number/volume) 8.9 10*3/uL 4.3-11.0 Blood erythrocytes automated count (number/volume) 5.12 10*6/uL 4.35-5.85 Venous blood hemoglobin measurement (mass/volume) 13.9 g/dL 13.3-17.7 Blood hematocrit (volume fraction) 41 % 40-54 Automated erythrocyte mean corpuscular volume 81 [ foz_us] 80-99 Automated erythrocyte mean corpuscular h emoglobin (mass per erythrocyte) 27 pg 25-34 Automated erythrocyte mean corpuscular h emoglobin concentration measurement (mass/volume) 34 g/dL 32-36 Automated erythrocyte distribution width ratio 14. 1 % 10.0- 14.5 Automated blood platelet count (count/volume) 288 10*3/uL 130-400 Automated blood platelet mean volume measurement 9.4 [foz_us] 7.4-10.4 Automated blood neutrophils/100 leukocytes 74 % 42-75 Automated blood lymphocytes/100 leukocytes 7 % 12-44 Blood monocytes/100 leukocytes 19 % 0-12 Automated blood eosinophils/100 leukocytes 0 % 0-10 Automated blood basophils/100 leukocytes 0 % 0-10 Blood neutrophils automated count (number/volume) 6.6 10*3 1.8-7.8 Blood lymphocytes automated count (number/volume) 0.6 10*3 1.0-4.0 Blood monocytes automated count (number/volume) 1. 7 10*3 0.0-1.0 Automated eosinophil count 0.0 10*3/uL 0 .0-0.3 Automated blood basophil count (count/volume) 0.0 10*3/uL 0.0-0.1 Comprehensive metabolic panel - 03/28/19 10:56 Serum or plasma sodium measurement (moles/volume) 132 mmol/L 135-145 Serum or plasma potassium measurement (moles/volume) 4.4 mmol/L 3.6-5.0 Serum or plasma chloride measurement (moles/volume) 99 mmol/L 98-107 Carbon dioxide 23 mmol/L 21-32 Serum or plasma anion gap determination (moles/volume) 10 mmol/L 5-14 Serum or plasma urea nitrogen measurement (mass/volume ) 11 mg/dL 7-18 Serum or plasma creatinine measurement (mass/volume) 0.80 mg/dL 0.60-1.30 Serum or plasma urea nitrogen/creatinine mass ratio 14 NRG Serum or plasma creatinine measurement w ith calculation of estimated glomerular filtration rate > NRG Serum or plasma glucose measurement (mass/volume) 129 mg/dL 70-105 Serum or plasma calcium measurement (mass/volume) 9.5 mg/dL 8.5-10.1 Serum or plasma total bilirubin measurement (mass/volu me) 0.8 mg/dL 0.1-1.0 Serum or plasma alkaline phosphatase fortunato surement (enzymatic activity/volume) 139 U/L 40-136 Serum or plasma aspartate aminotransfera se measurement (enzymatic activity/volume) 31 U/L 5-34 Serum or plasma alanine aminotransferase measurement (enzymatic activity/volume) 25 U/L 0-55 Serum or plasma protein measurement (mass/volume) 7.9 g/dL 6.4-8.2 Serum or plasma albumin measurement (mass/volume) 3.4 g/dL 3.2-4.5 CALCIUM CORRECTED 10.0 mg/dL 8.5-10.1 Manual absolute plasma cell count - 03/03 09/18 10:56 Blood monocytes/100 leukocytes 13 % NRG Manual blood segmented neutrophils/100 leukocytes 78 % NRG Blood band neutrophils/100 leukocytes 4 % NRG Manual blood lymphocytes/100 leukocytes 5 % NRG Manual eosinophils/100 leukocytes in nose 0 % NRG Manual blood basophils/100 leukocytes 0 % NRG Blood erythrocyte morphology finding identification NORMAL NRG Automated blood complete blood count (he mogram) panel - 04/01/19 07:05 Blood leukocytes automated count (number/volume) 7.2 10*3/uL 4.3-11.0 Blood erythrocytes automated count (number/volume) 4.74 10*6/uL 4.35-5.85 Venous blood hemoglobin measurement (mass/volume) 12.7 g/dL 13.3-17.7 Blood hematocrit (volume fraction) 38 % 40-54 Automated erythrocyte mean corpuscular volume 81 [ foz_us] 80-99 Automated erythrocyte mean corpuscular h emoglobin (mass per erythrocyte) 27 pg 25-34 Automated erythrocyte mean corpuscular h emoglobin concentration measurement (mass/volume) 33 g/dL 32-36 Automated erythrocyte distribution width ratio 14. 1 % 10.0- 14.5 Automated blood platelet count (count/volume) 283 10*3/uL 130-400 Automated blood platelet mean volume measurement 9.1 [foz_us] 7.4-10.4 PT panel in platelet poor plasma by coag ulation assay - 04/01/19 07:05 Prothrombin time (PT) in platelet poor plasma by coagu lation assay 17.0 s 12.2-14.7 INR in platelet poor plasma or blood by coagulation as say 1.3 0.8-1.4 Activated partial thromboplastin time (a PTT) in platelet poor plasma bycoagulation assay - 04/01/19 07:05 Activated partial thromboplastin time (a PTT) in platelet poor plasma bycoagulation assay 35 s 24-35 Methicillin resistant Staphylococcus aur eus (MRSA) screening culture - 04/21/19 09:45 Methicillin resistant Staphylococcus aureus (MRSA) scr eening culture NEG NRG Methicillin resistant Staphylococcus aur eus (MRSA) screening culture - 05/04/19 12:00 Methicillin resistant Staphylococcus aureus (MRSA) scr eening culture NEG NRG Encounters ACCT No. Visit Date/Time Discharge Status Pt. Type Provider Facility Loc./Unit Complaint [id number] 05/26/2019 08:23:00 23:59:59 CLS Outpatient MICHAEL LYNN MD [facility] ONC [id number] 05/09/2019 10:30:00 23:59:59 CLS Preadmit MICHAEL LYNN MD [facility] RT HODGKINS LYMPHOMA [id number] 05/05/2019 08:52:00 23:59:59 CLS Outpatient MICHAEL LYNN MD [facility] CARD HODGKINS LYMPHOMA [id number] 05/04/2019 11:20:00 15:18:00 DIS Outpatient MANJINDER YOU MD [facility] SDC HODGKIN LYMPHOMA [id number] 05/03/2019 10:20:00 23:59:59 CLS Outpatient MICHAEL LYNN MD, [facility] RAD HODGKINS LYMPHOMA [id number] 05/02/2019 05:34:00 10:47:00 DIS Outpatient MANJINDER YOU MD [facility] PREOP HODGKIN LYMPHOMA [id number] 04/21/2019 08:50:00 14:10:00 DIS Outpatient MANJINDER YOU MD [facility] SDC LYMPHADENOPATHY [id number] 04/19/2019 05:41:00 13:19:00 DIS Outpatient MANJINDER YOU MD [facility] PREOP LYMPHADENOPATHY [id number] 04/01/2019 06:25:00 11:35:00 DIS Outpatient VJ MOYER APRN [facility] RAD LYMPHADENOPATHY [id number] 03/28/2019 09:44:00 13:48:00 DIS Emergency VJ MOYER APRN [facility] ER DX W BLOOD CLOT,BLOOD I N URINE [id number] 03/24/2019 15:00:00 020 23:59:59 CLS Outpatient FLORIAN VILLARREAL, ROMI Salazar [facility] RAD DVT,HTN,TACHYCARDIA [id number] 03/24/2019 11:43:00 23:59:59 CLS Outpatient RAYMOND BUCK APRN [facility] RAD PAIN IN LT THIGH,SWELLI NG [id number] 06/03/2019 13:42:[address] Emergency VJ MOYER APRN [facility] ER KIDNEY STONES
[2019-06-03 13:52] LABS: BILIRUBIN,URINE NEGATIVE (NEGATIVE); CLARITY,URINE SL CLOUDY; COLOR,URINE YELLOW; GLUCOSE, URINE (UA) NEGATIVE (NEGATIVE); KETONES,URINE NEGATIVE (NEGATIVE); LEUKOCYTE ESTERASE ,URINE TRACE (NEGATIVE); NITRITE,URINE NEGATIVE (NEGATIVE); PROTEIN,URINE 2+ (NEGATIVE)
--- NOTE | 2019-06-03 13:55 | NUR ---
PT STATES NO CHANGE IN MEDS
--- NOTE | 2019-06-03 13:58 | ED GU-Female ---
General Chief Complaint: Abdominal/GI Problems Stated Complaint: KIDNEY STONES Nursing Triage Note: PT STATES HAS KIDNEYSTONES HAS HAD PAIN FOR 3 DAYS. HAS HX OF CA, LYMPHOMA. R SIDED LOWER ABD PAIN. HAS HX OF KIDNEY STONES. RATES PAIN 09/08 Nursing Sepsis Screen: No Definite Risk Source: patient Exam Limitations: no limitations History of Present Illness Date Seen by Provider: Jun 03, 2019 Time Seen by Provider: 13:55 Initial Comments To ER with reports of right flank/groin pain present for 3 days. Long history of kidney stones and this feels similar. No fever no chills. He currently has lymphoma and has received 2 rounds of chemotherapy. Follows with Dr. Lynn. On or al anticoagulation. Timing/Duration: just prior to arrival Severity/Quality: moderate Location: right flank Radiation: none Activities at Onset: none Prior Genitourinary Problems: none Associated Symptoms: dysuria Allergies and Home Medications Allergies Coded Allergies: No Known Drug Allergies (Unverified , 04/19/19) Home Medications Apixaban 5 Mg Tablet, 5 MG PO BID, (Reported) Hydrocodone Bit/Acetaminophen 15 Ml Solution, 15 ML PO Q4H Prescribed by: MANJINDER YOU on 05/04/19 1315 Hydrocodone/Acetaminophen 1 Each Tablet, 1 TAB PO Q4H Prescribed by: VJ MOYER on 06/03/19 1423 Levofloxacin 500 Mg Tablet, 500 MG PO DAILY Prescribed by: VJ MOYER on 06/03/19 1422 Patient Home Medication List Home Medication List Reviewed: Yes Review of Systems Review of Systems Constitutional: see HPI; No chills, No fever EENTM: see HPI Respiratory: no symptoms reported Cardiovascular: no symptoms reported Genitourinary: see HPI Musculoskeletal: no symptoms reported Skin: no symptoms reported Psychiatric/Neurological: No Symptoms Reported Endocrine: No Symptoms Reported Past Fkveliq-Bpjukr-Lzlkzt Hx Patient Social History Alcohol Use: Denies Use Recreational Drug Use: No Smoking Status: Never a Smoker 2nd Hand Smoke Exposure: No Recent Foreign Travel: No Contact w/Someone Who Travel: No Recent Infectious Disease Expo: No Recent Hopitalizations: No Physical Abuse: No Sexual Abuse: No Mistreated: No Seasonal Allergies Seasonal Allergies: No Past Medical History Surgeries: Yes (HERNIA, lymph node removed) Respiratory: No Currently Using CPAP: No Currently Using BIPAP: No Cardiac: No Hypertension Neurological: No Genitourinary: No Gastrointestinal: No Musculoskeletal: No Endocrine: No HEENT: No Cancer: Yes Lymphoma Psychosocial: No Integumentary: No Blood Disorders: Yes (DVT IN LEFT LEG) Physical Exam Vital Signs Vital Signs - First Documented 06/03/19 13:45 Temp 36.7 Pulse 120 Resp 18 B/P (MAP) 167/103 (124) Pulse Ox 99 Capillary Refill : Less Than 3 Seconds Height, Weight, BMI Height: '" Weight: lbs. oz. kg; 63.00 BMI Method: General Appearance: WD/WN, no apparent distress HEENT: PERRL/EOMI, normal ENT inspection Neck: non-tender Cardiovascular: tachycardia (120s) Respiratory: normal breath sounds, no respiratory distress, no accessory muscle use Gastrointestinal: normal bowel sounds, soft Extremities: normal range of motion, non-tender Neurologic/Psychiatric: alert, normal mood/affect, oriented x 3 Skin: normal color, warm/dry Progress/Results/Core Measures Suspected Sepsis Recent Fever Within 48 Hours: No Infection Criteria Present: None New/Unexplained Altered Menta: No Sepsis Screen: No Definite Risk SIRS Temperature: Pulse: 120 Respiratory Rate: 18 Laboratory Tests 06/03/19 13:50: White Blood Count 3.9L Blood Pressure 167 /103 Mean: 124 Laboratory Tests 06/03/19 13:50: Creatinine 0.78, Platelet Count 257, Total Bilirubin 0.3 Results/Orders Lab Results Laboratory Tests Test 06/03/19 13:41 06/03/19 13:50 Range/Units Urine Color YELLOW Urine Clarity SL CLOUDY Urine pH 7.0 5-9 Urine Specific Earling 1.025 H 1.016-1.022 Urine Protein 2+ H NEGATIVE Urine Glucose (UA) NEGATIVE NEGATIVE Urine Ketones NEGATIVE NEGATIVE Urine Nitrite NEGATIVE NEGATIVE Urine Bilirubin NEGATIVE NEGATIVE Urine Urobilinogen 0.2 < = 1.0 MG/DL Urine Leukocyte Esterase TRACE H NEGATIVE Urine RBC (Auto) 3+ H NEGATIVE Urine RBC >100 H /HPF Urine WBC 10-25 H /HPF Urine Crystals PRESENT H /LPF Urine Calcium Oxalate Crystals RARE H /LPF Urine Bacteria TRACE /HPF Urine Casts NONE /LPF Urine Mucus SMALL H /LPF Urine Culture Indicated YES White Blood Count 3.9 L 4.3-11.0 10^3/uL Red Blood Count 3.99 L 4.35-5.85 10^6/uL Hemoglobin 10.5 L 13.3-17.7 G/DL Hematocrit 32 L 40-54 % Mean Corpuscular Volume 81 80-99 FL Mean Corpuscular Hemoglobin 26 25-34 PG Mean Corpuscular Hemoglobin Concent 32 32-36 G/DL Red Cell Distribution Width 16.4 H 10.0-14.5 % Platelet Count 257 130-400 10^3/uL Mean Platelet Volume 9.8 7.4-10.4 FL Neutrophils (%) (Auto) 56 42-75 % Lymphocytes (%) (Auto) 36 12-44 % Monocytes (%) (Auto) 5 0-12 % Eosinophils (%) (Auto) 2 0-10 % Basophils (%) (Auto) 1 0-10 % Neutrophils # (Auto) 2.2 1.8-7.8 X 10^3 Lymphocytes # (Auto) 1.4 1.0-4.0 X 10^3 Monocytes # (Auto) 0.2 0.0-1.0 X 10^3 Eosinophils # (Auto) 0.1 0.0-0.3 10^3/uL Basophils # (Auto) 0.1 0.0-0.1 10^3/uL Sodium Level 139 135-145 MMOL/L Potassium Level 3.5 L 3.6-5.0 MMOL/L Chloride Level 104 98-107 MMOL/L Carbon Dioxide Level 23 21-32 MMOL/L Anion Gap 12 5-14 MMOL/L Blood Urea Nitrogen 7 7-18 MG/DL Creatinine 0.78 0.60-1.30 MG/DL Estimat Glomerular Filtration Rate > 60 BUN/Creatinine Ratio 9 Glucose Level 151 H 70-105 MG/DL Uric Acid 4.9 2.6-7.2 MG/DL Calcium Level 8.8 8.5-10.1 MG/DL Corrected Calcium 9.0 8.5-10.1 MG/DL Total Bilirubin 0.3 0.1-1.0 MG/DL Aspartate Amino Transf (AST/SGOT) 24 5-34 U/L Alanine Aminotransferase (ALT/SGPT) 25 0-55 U/L Alkaline Phosphatase 108 40-136 U/L Total Protein 7.1 6.4-8.2 GM/DL Albumin 3.7 3.2-4.5 GM/DL My Orders Orders - VJ MOYER APRN Ct Abd/Pelvis Wo(Kidney Stone) (06/03/19 13:43) Abdomen/Kub 1view (06/03/19 13:43) Ketorolac Injection (Toradol Injection) (06/03/19 13:45) Cbc With Automated Diff (06/03/19 13:43) Ua Culture If Indicated (06/03/19 13:43) Ed Iv/Invasive Line Start (06/03/19 13:43) Ns Iv 1000 Ml (Sodium Chloride 0.9%) (06/03/19 13:45) Ondansetron Injection (Zofran Injectio (06/03/19 13:45) Hydrocodone/Apap 5/325 Tablet (Lortab 5 (06/03/19 14:00) Urine Culture (06/03/19 13:41) Comprehensive Metabolic Panel (06/03/19 14:01) Ceftriaxone For Iv Use (Rocephin For I (06/03/19 14:15) Uric Acid (06/03/19 13:50) Medications Given in ED Current Medications Medications Dose Ordered Sig/Olga Route Start Time Stop Time Status Last Admin Dose Admin Ceftriaxone Sodium 1000 mg/ Sterile Water 10 ml @ 200 mls/hr ONCE ONCE IV 06/03/19 14:15 06/03/19 14:17 DC 06/03/19 14:25 200 MLS/HR Ketorolac Tromethamine 15 mg ONCE ONCE IVP 06/03/19 13:45 06/03/19 13:46 DC 06/03/19 13:56 15 MG Ondansetron HCl 4 mg ONCE ONCE IVP 06/03/19 13:45 06/03/19 13:46 DC 06/03/19 13:58 4 MG Vital Signs/I&O 06/03/19 06/03/19 13:45 15:21 Temp 36.7 Pulse 120 100 Resp 18 18 B/P (MAP) 167/103 (124) 155/88 (124) Pulse Ox 99 99 Capillary Refill : Less Than 3 Seconds Blood Pressure Mean: 124 Departure Communication (Admissions) NAME: MEDHATPRATIK Lizzie MEJIA MED REC#: [id number] PT STATUS: REG ER : 1955 PHYSICIAN: VJ MOYER APRN ADMIT DATE: 06/03/19/ER Signed Date of Exam:06/03/19 CT ABD/PELVIS WO(KIDNEY STONE) PROCEDURE: CT urinary tract, rule out kidney stone. TECHNIQUE: Multiple contiguous axial images were obtained through the abdomen and pelvis without the use of intravenous contrast. Auto Exposure Controls were utilized during the CT exam to meet ALARA standards for radiation dose reduction. INDICATION: Right flank pain and history of nephrolithiasis. COMPARISON: Comparison made with prior examination from 03/28/2019. FINDINGS: The heart size is normal. The lung bases are clear. Liver is normal in size and without focal lesions. Gallbladder is unremarkable. There is no biliary ductal dilatation. Spleen is normal. Pancreas and adrenal glands are unremarkable. There is unchanged bilateral nephrolithiasis. The previously seen mid right ureteral stone is no longer identified. There is marked induration of the central mesentery which is nonspecific, however suspect for sclerosing mesenteritis. There are subcentimeter lymph nodes within this as well. This appears to have increased somewhat since prior examination. The previously seen bulky central retroperitoneal adenopathy persists however appears slightly improved. The largest node on the left now measures 2.4 cm compared with the previous measurement of 3.9 cm. Aorta is nonaneurysmal. Bowel gas pattern is nonspecific. There is no free air. Bladder is normal. There is no pelvic mass or adenopathy. The osseous structures are unremarkable apart from mild degenerative change. IMPRESSION: 1. Persistent bilateral nephrolithiasis without evidence of obstructive uropathy. 2. Marked induration in the central mesentery, compatible with sclerosing mesenteritis. This appears to have increased since prior examination. 3. Interval decrease in size of the bulky retroperitoneal adenopathy, presumably reflecting response to therapy. This includes the pelvic and left inguinal nodes. Dictated by: Dictated on workstation # [id number] Dict: 06/03/19 1416 Trans: 06/03/19 1455 [id number] Interpreted by: RICARDO SKINNER MD Electronically signed by: RICARDO SKINNER MD 06/03/19 1455 Impression Primary Impression: Urinary tract infection Qualified Codes: N30.01 - Acute cystitis with hematuria Additional Impressions: Right lower quadrant abdominal pain Right renal stone Lymphoma Qualified Codes: C81.90 - Hodgkin lymphoma, unspecified, unspecified site Sclerosing mesenteritis Disposition: HOME, SELF-CARE Condition: Stable Departure-Patient Inst. Decision time for Depature: 14:21 Referrals: HAO QUINTANA MD (PCP/Family) Primary Care Physician Patient Instructions: Kidney Stones in Adults Add. Discharge Instructions: 1. Return for any high fevers, uncontrollable pain or any other concerns. All discharge instructions reviewed with patient and/or family. Voiced understanding. Scripts Levofloxacin (Levaquin) 500 Mg Tablet 500 MG PO DAILY, #7 TAB Prov: VJ MOYER APRN 06/03/19 Hydrocodone/Acetaminophen (Jackson 7.5-325 Tablet) 1 Each Tablet 1 TAB PO Q4H for PAIN-MODERATE MDD 6 TABS for 7 Days, #20 TAB Prov: VJ MOYER APRN 06/03/19 Copy Copies To 1: MICHAEL LYNN MD; HAO QUINTANA MD, PETER J APRN Jun 03, 2019 13:58
[2019-06-03 13:59] LABS: BACTERIA,URINE TRACE /HPF; CALCIUM OXALATE CRYSTALS,UR RARE /LPF; RBC,URINE >100 /HPF
[2019-06-03 14:00] LABS: BASOPHILS # (AUTO) 0.1 10^3/uL (0.0-0.1); BASOPHILS % (AUTO) 1 % (0-10); EOSINOPHILS # (AUTO) 0.1 10^3/uL (0.0-0.3); EOSINOPHILS % (AUTO) 2 % (0-10); HEMATOCRIT 32 % (40-54); HEMOGLOBIN 10.5 G/DL (13.3-17.7); LYMPHOCYTES # (AUTO) 1.4 X 10^3 (1.0-4.0); LYMPHOCYTES % (AUTO) 36 % (12-44); MEAN CORPUSCULAR HEMOGLOBIN 26 PG (25-34); MEAN CORPUSCULAR HGB CONC 32 G/DL (32-36); MEAN CORPUSCULAR VOLUME 81 FL (80-99); MEAN PLATELET VOLUME 9.8 FL (7.4-10.4); MONOCYTES # (AUTO) 0.2 X 10^3 (0.0-1.0); MONOCYTES % (AUTO) 5 % (0-12); NEUTROPHILS # (AUTO) 2.2 X 10^3 (1.8-7.8); NEUTROPHILS % (AUTO) 56 % (42-75); PLATELET COUNT 257 10^3/uL (130-400); RED CELL DISTRIBUTION WIDTH 16.4 % (10.0-14.5); WHITE BLOOD COUNT 3.9 10^3/uL (4.3-11.0)
[2019-06-03] MEDS ORDERED: HYDROcodone/APAP 5 MG/325 MG (LORTAB) TAB PO ONE (14:00)
[2019-06-03] MEDS ORDERED: cefTRIAXone FOR IV USE 1,000 MG in WATER (STERILE) FOR INJECTION 10 ML IV ONE (14:15)
[2019-06-03 14:20] LABS: ALANINE AMINOTRANSFERASE 25 U/L (0-55); ALBUMIN 3.7 GM/DL (3.2-4.5); ALKALINE PHOSPHATASE 108 U/L (40-136); BILIRUBIN,TOTAL 0.3 MG/DL (0.1-1.0); BUN/CREATININE RATIO 9; CALCIUM 8.8 MG/DL (8.5-10.1); CARBON DIOXIDE 23 MMOL/L (21-32); CHLORIDE 104 MMOL/L (98-107); CREATININE SERUM 0.78 MG/DL (0.60-1.30); GFR ESTIMATED > 60; GLUCOSE 151 MG/DL (70-105); POTASSIUM 3.5 MMOL/L (3.6-5.0); SODIUM 139 MMOL/L (135-145); TOTAL PROTEIN 7.1 GM/DL (6.4-8.2); URIC ACID 4.9 MG/DL (2.6-7.2)
[2019-06-03] MEDS ORDERED: HYDR-4227 PO (14:22)
[2019-06-03] MEDS ORDERED: LEVO500T2 PO (14:22)
--- NOTE | 2019-06-03 14:35 | Diagnostic Imaging Report ---
INDICATION: Kidney stones with pain for three days. History of cancer or lymphoma. COMPARISON STUDY: CT of the abdomen from earlier today. FINDINGS: Supine and upright views of the abdomen demonstrates a 2.8 mm calculi overlying the right kidney and a 11 mm calculi overlying the left kidney. The bowel gas pattern is normal. Osseous structures are normal. No calcifications are seen along the course of the ureters or bladder. IMPRESSION: There is bilateral nephrolithiasis. Dictated by: Dictated on workstation # [id number]
--- NOTE | 2019-06-03 14:35 | Diagnostic Imaging Report ---
PROCEDURE: CT urinary tract, rule out kidney stone. TECHNIQUE: Multiple contiguous axial images were obtained through the abdomen and pelvis without the use of intravenous contrast. Auto Exposure Controls were utilized during the CT exam to meet ALARA standards for radiation dose reduction. INDICATION: Right flank pain and history of nephrolithiasis. COMPARISON: Comparison made with prior examination from 03/28/2019. FINDINGS: The heart size is normal. The lung bases are clear. Liver is normal in size and without focal lesions. Gallbladder is unremarkable. There is no biliary ductal dilatation. Spleen is normal. Pancreas and adrenal glands are unremarkable. There is unchanged bilateral nephrolithiasis. The previously seen mid right ureteral stone is no longer identified. There is marked induration of the central mesentery which is nonspecific, however suspect for sclerosing mesenteritis. There are subcentimeter lymph nodes within this as well. This appears to have increased somewhat since prior examination. The previously seen bulky central retroperitoneal adenopathy persists however appears slightly improved. The largest node on the left now measures 2.4 cm compared with the previous measurement of 3.9 cm. Aorta is nonaneurysmal. Bowel gas pattern is nonspecific. There is no free air. Bladder is normal. There is no pelvic mass or adenopathy. The osseous structures are unremarkable apart from mild degenerative change. IMPRESSION: 1. Persistent bilateral nephrolithiasis without evidence of obstructive uropathy. 2. Marked induration in the central mesentery, compatible with sclerosing mesenteritis. This appears to have increased since prior examination. 3. Interval decrease in size of the bulky retroperitoneal adenopathy, presumably reflecting response to therapy. This includes the pelvic and left inguinal nodes. Dictated by: Dictated on workstation # [id number]
[2019-06-03 15:21] VITALS: BP 155/88
== END 2019-06-03 15:25 | disposition home or self-care (01) ==
LOC: EDUNIT# 13:41 → ER 13:42
DX: N30.01 Acute cystitis with hematuria (principal); N20.0 Calculus of kidney; C81.90 Hodgkin lymphoma, unspecified, unspecified site; K65.4 Sclerosing mesenteritis; I10 Essential (primary) hypertension; Z86.718 Personal history of other venous thrombosis and embolism; Z92.21 Personal history of antineoplastic chemotherapy; Z79.899 Other long term (current) drug therapy
CPT/HCPCS: 36415; 74018; 74176; 80053; 81000; 84550; 85025; 87088

== ENCOUNTER → 2019-07-05 | Outpatient (CLI) | payer OTHER ==
[~2019-07-05] MED LIST changes: +HYDR-4227 PO; +LEVO500T2 PO
--- NOTE | 2019-07-05 14:01 | Diagnostic Imaging Report ---
EXAMINATION: PET/CT. INDICATION: Hodgkin's lymphoma. TECHNIQUE: After intravenous administration of 15.93 mCi of F18-FDG in the left AC, a series of overlapping emission and transmission PET images was obtained. In the coronal, transaxial and sagittal planes, the area imaged extended from the skull base through the upper thighs. Patient height is 5'8", weight 208 lbs., and blood glucose level 108. FINDINGS: The previous PET/CT exam performed on 05/03/2019 noted innumerable bulky hypermetabolic nodes in the retroperitoneum and pelvis as well as subcarinal and hilar adenopathy. There were also hypermetabolic nodes in this left supraclavicular region and the kassie hepatis and the spleen was hypermetabolic as well. There also appear to be areas of abnormal uptake in the right lobe of the liver and within the osseous structures. However, when compared to the prior exam, there has been a marked improvement. The adenopathy noted on the prior exam has decreased in size significantly and there is no virtually no hypermetabolic activity associated with the nodes identified on the prior exam. There are still a few sizable lymph nodes along the left pelvic sidewall however. There is also much less hypermetabolic activity throughout the osseous structures and the isolated area of abnormal uptake in the liver noted previously has resolved. There is still a small area of abnormal uptake in the musculature along the lateral margin of the right scapula. The maximum SUV in this area is 2.7 as opposed to 2.9 on the prior exam. There is also still a small hypermetabolic focus in the medial head of the right clavicle. The maximum SUV in this area is approximately 3.0 as opposed to 6.1 on the prior study. However, there is a persistent focal area of hypermetabolic activity in the region of the rectosigmoid portion of the colon. This area has a maximum SUV of 7.4. On the prior exam, maximum SUV in this area was 9.4. This could merely be secondary to physiologic activity within the bowel as there is no clear evidence for a mass in this region on the CT images. Even so, endoscopy would be recommended to exclude malignancy. The CT images do show that there is greater distortion of the mesenteric fat in the region of the root of the mesentery than noted on the prior exam. This is of uncertain etiology but could be due to mild edema/inflammation. The calculus within the right renal pelvis and the nonobstructive calculus in the left kidney seen previously are again evident and no different. Both kidneys do show excretion of the radiotracer. The 4 mm calculus within the bladder seen on the prior exam is no longer evident. There is no acute abnormality identified otherwise. IMPRESSION: 1. There has been a marked improvement in the appearance of the PET/CT exam as the diffuse areas of hypermetabolic activity involving the osseous structures and the bulky adenopathy noted previously have essentially resolved. 2. There is a persistent focal area of hypermetabolic activity in the region of the rectosigmoid portion of the colon. Considerations and recommendations as above. 3. These results were discussed with Dr. Otto Steve. Dictated by: Dictated on workstation # [id number]
== END ==
LOC: RAD 08:54
PROVIDERS: ATTEND Internal Medicine Hematology & Oncology
DX: C81.18 Nodular sclerosis Hodgkin lymphoma, lymph nodes of multiple sites (principal)

== ENCOUNTER 2019-07-07 09:11 | Outpatient (RCR) | payer OTHER ==
[2019-05-05 11:31] LABS: BASOPHILS % (AUTO) 0 % (0-10); EOSINOPHILS % (AUTO) 0 % (0-10); HEMATOCRIT 34 % (40-54); HEMOGLOBIN 11.1 G/DL (13.3-17.7); LYMPHOCYTES # (AUTO) 0.7 X 10^3 (1.0-4.0); LYMPHOCYTES % (AUTO) 9 % (12-44); MEAN CORPUSCULAR HEMOGLOBIN 26 PG (25-34); MEAN CORPUSCULAR HGB CONC 33 G/DL (32-36); MEAN CORPUSCULAR VOLUME 80 FL (80-99); MONOCYTES # (AUTO) 1.6 X 10^3 (0.0-1.0); MONOCYTES % (AUTO) 23 % (0-12); NEUTROPHILS # (AUTO) 4.7 X 10^3 (1.8-7.8); NEUTROPHILS % (AUTO) 67 % (42-75); PLATELET COUNT 274 10^3/uL (130-400); RED CELL DISTRIBUTION WIDTH 14.9 % (10.0-14.5)
[2019-05-05 11:55] LABS: BUN/CREATININE RATIO 16; CARBON DIOXIDE 23 MMOL/L (21-32); CHLORIDE 98 MMOL/L (98-107); CREATININE SERUM 0.74 MG/DL (0.60-1.30); GFR ESTIMATED > 60; GLUCOSE 103 MG/DL (70-105); POTASSIUM 4.6 MMOL/L (3.6-5.0); SODIUM 132 MMOL/L (135-145)
[2019-05-05 11:56] LABS: ALANINE AMINOTRANSFERASE 26 U/L (0-55); ALBUMIN 2.9 GM/DL (3.2-4.5); ALKALINE PHOSPHATASE 155 U/L (40-136); BILIRUBIN,TOTAL 0.8 MG/DL (0.1-1.0); CALCIUM 9.2 MG/DL (8.5-10.1); TOTAL PROTEIN 6.6 GM/DL (6.4-8.2)
--- NOTE | 2019-05-10 07:35 | Anesthesia-General Post-Op ---
MAC Significant Intra-Op Events Notes 05/04/19 @ 1425 Patient Condition Mental Status/LOC: Same as Preop Cardiovascular: Satisfactory Nausea/Vomiting: Absent Respiratory: Satisfactory Pain: Controlled Complications: Absent Post Op Complications Complications None Follow Up Care/Instructions Patient Instructions None needed. Anesthesiology Discharge Order Discharge Order Patient is doing well, no complaints, stable vital signs, no apparent adverse anesthesia problems. No complications reported per nursing. EDD GAMINO CRNA May 10, 2019 07:35
[2019-05-12 08:22] LABS: BASOPHILS % (AUTO) 1 % (0-10); EOSINOPHILS % (AUTO) 2 % (0-10); HEMATOCRIT 33 % (40-54); HEMOGLOBIN 11.1 G/DL (13.3-17.7); LYMPHOCYTES # (AUTO) 0.3 X 10^3 (1.0-4.0); LYMPHOCYTES % (AUTO) 30 % (12-44); MEAN CORPUSCULAR HEMOGLOBIN 26 PG (25-34); MEAN CORPUSCULAR HGB CONC 34 G/DL (32-36); MEAN CORPUSCULAR VOLUME 78 FL (80-99); MONOCYTES % (AUTO) 2 % (0-12); NEUTROPHILS # (AUTO) 0.6 X 10^3 (1.8-7.8); NEUTROPHILS % (AUTO) 64 % (42-75); PLATELET COUNT 168 10^3/uL (130-400); RED CELL DISTRIBUTION WIDTH 14.9 % (10.0-14.5)
[2019-05-12 08:27] LABS: WHITE BLOOD COUNT 0.9 10^3/uL (4.3-11.0)
[2019-05-12 08:41] LABS: BUN/CREATININE RATIO 11; CALCIUM 9.1 MG/DL (8.5-10.1); CARBON DIOXIDE 27 MMOL/L (21-32); CHLORIDE 98 MMOL/L (98-107); CREATININE SERUM 0.73 MG/DL (0.60-1.30); GFR ESTIMATED > 60; GLUCOSE 116 MG/DL (70-105); POTASSIUM 4.2 MMOL/L (3.6-5.0); SODIUM 135 MMOL/L (135-145)
[2019-05-19 08:48] LABS: BASOPHILS # (AUTO) 0.1 10^3/uL (0.0-0.1); BASOPHILS % (AUTO) 3 % (0-10); EOSINOPHILS % (AUTO) 1 % (0-10); HEMATOCRIT 32 % (40-54); HEMOGLOBIN 10.4 G/DL (13.3-17.7); LYMPHOCYTES # (AUTO) 2.1 X 10^3 (1.0-4.0); LYMPHOCYTES % (AUTO) 47 % (12-44); MEAN CORPUSCULAR HEMOGLOBIN 26 PG (25-34); MEAN CORPUSCULAR HGB CONC 33 G/DL (32-36); MEAN CORPUSCULAR VOLUME 80 FL (80-99); MEAN PLATELET VOLUME 8.3 FL (7.4-10.4); MONOCYTES # (AUTO) 1.9 X 10^3 (0.0-1.0); MONOCYTES % (AUTO) 43 % (0-12); NEUTROPHILS # (AUTO) 0.3 X 10^3 (1.8-7.8); NEUTROPHILS % (AUTO) 6 % (42-75); PLATELET COUNT 370 10^3/uL (130-400); RED CELL DISTRIBUTION WIDTH 16.4 % (10.0-14.5); WHITE BLOOD COUNT 4.5 10^3/uL (4.3-11.0)
[2019-05-19 09:05] LABS: BUN/CREATININE RATIO 10; CALCIUM 8.5 MG/DL (8.5-10.1); CARBON DIOXIDE 24 MMOL/L (21-32); CHLORIDE 100 MMOL/L (98-107); CREATININE SERUM 0.78 MG/DL (0.60-1.30); GFR ESTIMATED > 60; GLUCOSE 143 MG/DL (70-105); POTASSIUM 3.8 MMOL/L (3.6-5.0); SODIUM 134 MMOL/L (135-145)
[2019-05-26 08:44] LABS: BASOPHILS # (AUTO) 0.1 10^3/uL (0.0-0.1); BASOPHILS % (AUTO) 1 % (0-10); EOSINOPHILS # (AUTO) 0.1 10^3/uL (0.0-0.3); EOSINOPHILS % (AUTO) 1 % (0-10); HEMATOCRIT 32 % (40-54); HEMOGLOBIN 10.5 G/DL (13.3-17.7); LYMPHOCYTES # (AUTO) 3.2 X 10^3 (1.0-4.0); LYMPHOCYTES % (AUTO) 29 % (12-44); MEAN CORPUSCULAR HEMOGLOBIN 27 PG (25-34); MEAN CORPUSCULAR HGB CONC 33 G/DL (32-36); MEAN CORPUSCULAR VOLUME 81 FL (80-99); MEAN PLATELET VOLUME 8.7 FL (7.4-10.4); MONOCYTES # (AUTO) 1.6 X 10^3 (0.0-1.0); MONOCYTES % (AUTO) 15 % (0-12); NEUTROPHILS % (AUTO) 55 % (42-75); PLATELET COUNT 360 10^3/uL (130-400); RED CELL DISTRIBUTION WIDTH 16.6 % (10.0-14.5); WHITE BLOOD COUNT 10.9 10^3/uL (4.3-11.0)
[2019-05-26 09:05] LABS: ALANINE AMINOTRANSFERASE 18 U/L (0-55); ALBUMIN 3.2 GM/DL (3.2-4.5); ALKALINE PHOSPHATASE 137 U/L (40-136); BILIRUBIN,TOTAL 0.4 MG/DL (0.1-1.0); BUN/CREATININE RATIO 8; CALCIUM 8.8 MG/DL (8.5-10.1); CARBON DIOXIDE 24 MMOL/L (21-32); CHLORIDE 104 MMOL/L (98-107); CREATININE SERUM 0.71 MG/DL (0.60-1.30); GFR ESTIMATED > 60; GLUCOSE 135 MG/DL (70-105); POTASSIUM 3.7 MMOL/L (3.6-5.0); SODIUM 139 MMOL/L (135-145); TOTAL PROTEIN 6.5 GM/DL (6.4-8.2)
[2019-06-09 10:39] LABS: BASOPHILS # (AUTO) 0.1 10^3/uL (0.0-0.1); BASOPHILS % (AUTO) 3 % (0-10); EOSINOPHILS # (AUTO) 0.2 10^3/uL (0.0-0.3); EOSINOPHILS % (AUTO) 7 % (0-10); HEMATOCRIT 33 % (40-54); HEMOGLOBIN 10.5 G/DL (13.3-17.7); LYMPHOCYTES # (AUTO) 1.1 X 10^3 (1.0-4.0); LYMPHOCYTES % (AUTO) 49 % (12-44); MEAN CORPUSCULAR HEMOGLOBIN 27 PG (25-34); MEAN CORPUSCULAR HGB CONC 32 G/DL (32-36); MEAN CORPUSCULAR VOLUME 83 FL (80-99); MEAN PLATELET VOLUME 9.2 FL (7.4-10.4); MONOCYTES # (AUTO) 0.7 X 10^3 (0.0-1.0); MONOCYTES % (AUTO) 32 % (0-12); NEUTROPHILS # (AUTO) 0.2 X 10^3 (1.8-7.8); NEUTROPHILS % (AUTO) 9 % (42-75); PLATELET COUNT 314 10^3/uL (130-400); RED CELL DISTRIBUTION WIDTH 18.6 % (10.0-14.5); WHITE BLOOD COUNT 2.3 10^3/uL (4.3-11.0)
[2019-06-09 10:51] LABS: ALBUMIN 3.6 GM/DL (3.2-4.5); CHLORIDE 106 MMOL/L (98-107); SODIUM 138 MMOL/L (135-145)
[2019-06-09 10:52] LABS: CALCIUM 8.7 MG/DL (8.5-10.1)
[2019-06-09 10:54] LABS: GLUCOSE 161 MG/DL (70-105); TOTAL PROTEIN 6.6 GM/DL (6.4-8.2)
[2019-06-09 10:55] LABS: BILIRUBIN,TOTAL 0.4 MG/DL (0.1-1.0); CARBON DIOXIDE 21 MMOL/L (21-32)
[2019-06-09 10:57] LABS: ALKALINE PHOSPHATASE 104 U/L (40-136); CREATININE SERUM 0.75 MG/DL (0.60-1.30); GFR ESTIMATED > 60
[2019-06-09 10:58] LABS: BUN/CREATININE RATIO 7
[2019-06-09 11:00] LABS: ALANINE AMINOTRANSFERASE 17 U/L (0-55)
[2019-06-23 08:48] LABS: BASOPHILS # (AUTO) 0.1 10^3/uL (0.0-0.1); BASOPHILS % (AUTO) 3 % (0-10); EOSINOPHILS # (AUTO) 0.1 10^3/uL (0.0-0.3); EOSINOPHILS % (AUTO) 2 % (0-10); HEMATOCRIT 34 % (40-54); HEMOGLOBIN 11.5 G/DL (13.3-17.7); LYMPHOCYTES % (AUTO) 35 % (12-44); MEAN CORPUSCULAR HEMOGLOBIN 28 PG (25-34); MEAN CORPUSCULAR HGB CONC 34 G/DL (32-36); MEAN CORPUSCULAR VOLUME 82 FL (80-99); MEAN PLATELET VOLUME 8.8 FL (7.4-10.4); MONOCYTES # (AUTO) 1.4 X 10^3 (0.0-1.0); MONOCYTES % (AUTO) 46 % (0-12); NEUTROPHILS # (AUTO) 0.4 X 10^3 (1.8-7.8); NEUTROPHILS % (AUTO) 15 % (42-75); PLATELET COUNT 408 10^3/uL (130-400); RED CELL DISTRIBUTION WIDTH 18.5 % (10.0-14.5)
[2019-06-23 09:03] LABS: BUN/CREATININE RATIO 7; CALCIUM 8.4 MG/DL (8.5-10.1); CARBON DIOXIDE 21 MMOL/L (21-32); CHLORIDE 106 MMOL/L (98-107); CREATININE SERUM 0.71 MG/DL (0.60-1.30); GFR ESTIMATED > 60; GLUCOSE 118 MG/DL (70-105); SODIUM 139 MMOL/L (135-145)
[~2019-07-07] VITALS: Ht 172.7 cm; Wt 98.4 kg
[~2019-07-07 09:11] MED LIST changes: +ACETAMINOPHEN 325 MG TAB (TYLENOL) CANCER CTR PO PRN; +BLEOMYCIN IV ONE; +BLEOMYCIN IV SCH; +DACARBAZINE IV SCH; +DOXORUBICIN HCL IV SCH; +FOSAPREPITANT DIMEGLUMINE 150 MG in NS (IVPB) CANCER CENTER ONLY 150 ML IV SCH; +LORazepam INJ 2 MG/ML VIAL CANCER CTR IV SCH; +LORazepam INJ 2 MG/ML VIAL CANCER CTR ONE; +NS IV 1000 ML (CANCER CTR) IV SCH; +NS IV SCH; +PALONOSETRON HCL 0.25 MG, DEXAMETHASONE INJECTION 10 MG in NS (IVPB) CANCER CENTER 50 ML IV SCH; +VINBLASTINE SULFATE IV SCH; +[UNRECOGNIZED DRUG - OTHER] IV SCH; +[UNRECOGNIZED DRUG - OTHER] IV SCH
[2019-07-07 09:37] LABS: BASOPHILS # (AUTO) 0.1 10^3/uL (0.0-0.1); BASOPHILS % (AUTO) 3 % (0-10); EOSINOPHILS % (AUTO) 1 % (0-10); HEMATOCRIT 33 % (40-54); HEMOGLOBIN 10.8 G/DL (13.3-17.7); LYMPHOCYTES % (AUTO) 40 % (12-44); MEAN CORPUSCULAR HEMOGLOBIN 27 PG (25-34); MEAN CORPUSCULAR HGB CONC 32 G/DL (32-36); MEAN CORPUSCULAR VOLUME 83 FL (80-99); MEAN PLATELET VOLUME 8.8 FL (7.4-10.4); MONOCYTES # (AUTO) 1.2 X 10^3 (0.0-1.0); MONOCYTES % (AUTO) 47 % (0-12); NEUTROPHILS # (AUTO) 0.2 X 10^3 (1.8-7.8); NEUTROPHILS % (AUTO) 8 % (42-75); PLATELET COUNT 468 10^3/uL (130-400); RED CELL DISTRIBUTION WIDTH 18.2 % (10.0-14.5); WHITE BLOOD COUNT 2.5 10^3/uL (4.3-11.0)
[2019-07-07 09:56] LABS: ALANINE AMINOTRANSFERASE 12 U/L (0-55); ALBUMIN 3.4 GM/DL (3.2-4.5); ALKALINE PHOSPHATASE 93 U/L (40-136); BILIRUBIN,TOTAL 0.3 MG/DL (0.1-1.0); BUN/CREATININE RATIO 7; CALCIUM 8.7 MG/DL (8.5-10.1); CARBON DIOXIDE 25 MMOL/L (21-32); CHLORIDE 104 MMOL/L (98-107); CREATININE SERUM 0.69 MG/DL (0.60-1.30); GFR ESTIMATED > 60; GLUCOSE 135 MG/DL (70-105); POTASSIUM 3.4 MMOL/L (3.6-5.0); SODIUM 140 MMOL/L (135-145); TOTAL PROTEIN 6.3 GM/DL (6.4-8.2)
== END 2019-07-14 | disposition home or self-care (01) ==
LOC: ONC 09:11
PROVIDERS: ATTEND Internal Medicine Hematology & Oncology
DX: C81.90 Hodgkin lymphoma, unspecified, unspecified site (principal); I10 Essential (primary) hypertension; Z86.718 Personal history of other venous thrombosis and embolism
CPT/HCPCS: 36591; 80048; 80053; 83615; 85025; 96367; 96374; 96375; 96409; 96411; 96413; 96417; 99213; 99214

== ENCOUNTER 2019-07-22 14:15 | Outpatient (RCR) | payer OTHER ==
[2019-07-21 09:18] LABS: BASOPHILS # (AUTO) 0.1 10^3/uL (0.0-0.1); BASOPHILS % (AUTO) 3 % (0-10); EOSINOPHILS % (AUTO) 2 % (0-10); HEMATOCRIT 33 % (40-54); HEMOGLOBIN 10.9 G/DL (13.3-17.7); LYMPHOCYTES % (AUTO) 39 % (12-44); MEAN CORPUSCULAR HEMOGLOBIN 27 PG (25-34); MEAN CORPUSCULAR HGB CONC 33 G/DL (32-36); MEAN CORPUSCULAR VOLUME 84 FL (80-99); MONOCYTES # (AUTO) 1.3 X 10^3 (0.0-1.0); MONOCYTES % (AUTO) 51 % (0-12); NEUTROPHILS # (AUTO) 0.1 X 10^3 (1.8-7.8); NEUTROPHILS % (AUTO) 5 % (42-75); PLATELET COUNT 411 10^3/uL (130-400); RED CELL DISTRIBUTION WIDTH 17.8 % (10.0-14.5); WHITE BLOOD COUNT 2.5 10^3/uL (4.3-11.0)
[2019-07-21 09:38] LABS: ALANINE AMINOTRANSFERASE 12 U/L (0-55); ALBUMIN 3.5 GM/DL (3.2-4.5); ALKALINE PHOSPHATASE 98 U/L (40-136); BILIRUBIN,TOTAL 0.3 MG/DL (0.1-1.0); BUN/CREATININE RATIO 11; CALCIUM 8.8 MG/DL (8.5-10.1); CARBON DIOXIDE 23 MMOL/L (21-32); CHLORIDE 105 MMOL/L (98-107); CREATININE SERUM 0.72 MG/DL (0.60-1.30); GFR ESTIMATED > 60; GLUCOSE 116 MG/DL (70-105); POTASSIUM 3.8 MMOL/L (3.6-5.0); SODIUM 140 MMOL/L (135-145); TOTAL PROTEIN 6.3 GM/DL (6.4-8.2)
[~2019-07-22 14:15] MED LIST changes: -BLEOMYCIN IV ONE; -BLEOMYCIN IV SCH; -LORazepam INJ 2 MG/ML VIAL CANCER CTR ONE; +PEGFILGRASTIM 6 MG/0.6 ML ONPRO KIT SQ SCH; +PEGFILGRASTIM 6 MG/0.6ML NEULASTA SC SCH; -[UNRECOGNIZED DRUG - OTHER] IV SCH; -[UNRECOGNIZED DRUG - OTHER] IV SCH
== END 2019-07-26 14:46 | disposition home or self-care (01) ==
LOC: ONC 14:15
PROVIDERS: ATTEND Internal Medicine Hematology & Oncology
DX: Z51.11 Encounter for antineoplastic chemotherapy (principal); C81.18 Nodular sclerosis Hodgkin lymphoma, lymph nodes of multiple sites; I10 Essential (primary) hypertension; Z86.718 Personal history of other venous thrombosis and embolism
CPT/HCPCS: 36591; 80053; 85025; 96367; 96372; 96375; 96411; 96413; J2505

== ENCOUNTER → 2019-07-29 | Outpatient (CLI) | payer OTHER ==
[~2019-07-29] MED LIST changes: -ACETAMINOPHEN 325 MG TAB (TYLENOL) CANCER CTR PO PRN; +CATHETER FLUSH 10 ML SYR IV PRN; -DACARBAZINE IV SCH; -DOXORUBICIN HCL IV SCH; -FOSAPREPITANT DIMEGLUMINE 150 MG in NS (IVPB) CANCER CENTER ONLY 150 ML IV SCH; +HEParin (CENTRAL IV FLUSH) 500 UNIT/5 ML SYR ONE; -LORazepam INJ 2 MG/ML VIAL CANCER CTR IV SCH; -NS IV 1000 ML (CANCER CTR) IV SCH; -NS IV SCH; -PALONOSETRON HCL 0.25 MG, DEXAMETHASONE INJECTION 10 MG in NS (IVPB) CANCER CENTER 50 ML IV SCH; -PEGFILGRASTIM 6 MG/0.6 ML ONPRO KIT SQ SCH; -PEGFILGRASTIM 6 MG/0.6ML NEULASTA SC SCH; -VINBLASTINE SULFATE IV SCH
--- NOTE | 2019-07-29 10:22 | Diagnostic Imaging Report ---
INDICATION: Hodgkin's lymphoma. Patient was administered 28.9 mCi technetium 99m pertechnetate labeled to the patient's red blood cells, a pass gated imaging of the chest was performed. Left ventricular ejection fraction is 53%. This compares with 50% on prior exam from 05/05/2019. IMPRESSION: Stable left ventricular ejection fraction. Dictated by: Dictated on workstation # [id number]
== END ==
LOC: CARD 08:58
PROVIDERS: ATTEND Internal Medicine Hematology & Oncology
DX: Z51.81 Encounter for therapeutic drug level monitoring (principal); C81.90 Hodgkin lymphoma, unspecified, unspecified site
CPT/HCPCS: 78472

== ENCOUNTER 2019-10-14 10:01 | Outpatient (RCR) | payer OTHER ==
[2019-07-28 09:09] LABS: BASOPHILS % (AUTO) 1 % (0-10); EOSINOPHILS % (AUTO) 1 % (0-10); HEMATOCRIT 33 % (40-54); LYMPHOCYTES # (AUTO) 0.7 X 10^3 (1.0-4.0); LYMPHOCYTES % (AUTO) 27 % (12-44); MEAN CORPUSCULAR HEMOGLOBIN 28 PG (25-34); MEAN CORPUSCULAR HGB CONC 33 G/DL (32-36); MEAN CORPUSCULAR VOLUME 83 FL (80-99); MEAN PLATELET VOLUME 10.5 FL (7.4-10.4); MONOCYTES # (AUTO) 0.4 X 10^3 (0.0-1.0); MONOCYTES % (AUTO) 15 % (0-12); NEUTROPHILS # (AUTO) 1.5 X 10^3 (1.8-7.8); NEUTROPHILS % (AUTO) 56 % (42-75); PLATELET COUNT 182 10^3/uL (130-400); RED CELL DISTRIBUTION WIDTH 16.3 % (10.0-14.5); WHITE BLOOD COUNT 2.6 10^3/uL (4.3-11.0)
[2019-07-28 09:16] LABS: CHLORIDE 103 MMOL/L (98-107); POTASSIUM 3.8 MMOL/L (3.6-5.0); SODIUM 138 MMOL/L (135-145)
[2019-07-28 09:18] LABS: GLUCOSE 138 MG/DL (70-105)
[2019-07-28 09:19] LABS: CARBON DIOXIDE 25 MMOL/L (21-32)
[2019-07-28 09:22] LABS: CREATININE SERUM 0.71 MG/DL (0.60-1.30); GFR ESTIMATED > 60
[2019-07-28 09:23] LABS: BUN/CREATININE RATIO 8
[2019-08-04 09:12] LABS: BASOPHILS # (AUTO) 0.1 10^3/uL (0.0-0.1); BASOPHILS % (AUTO) 1 % (0-10); EOSINOPHILS % (AUTO) 1 % (0-10); HEMATOCRIT 33 % (40-54); HEMOGLOBIN 10.9 G/DL (13.3-17.7); LYMPHOCYTES # (AUTO) 0.9 X 10^3 (1.0-4.0); LYMPHOCYTES % (AUTO) 12 % (12-44); MEAN CORPUSCULAR HEMOGLOBIN 28 PG (25-34); MEAN CORPUSCULAR HGB CONC 33 G/DL (32-36); MEAN CORPUSCULAR VOLUME 84 FL (80-99); MEAN PLATELET VOLUME 9.4 FL (7.4-10.4); MONOCYTES # (AUTO) 1.3 X 10^3 (0.0-1.0); MONOCYTES % (AUTO) 18 % (0-12); NEUTROPHILS % (AUTO) 68 % (42-75); PLATELET COUNT 251 10^3/uL (130-400); RED CELL DISTRIBUTION WIDTH 17.7 % (10.0-14.5); WHITE BLOOD COUNT 7.3 10^3/uL (4.3-11.0)
[2019-08-04 09:38] LABS: ALANINE AMINOTRANSFERASE 14 U/L (0-55); ALBUMIN 3.4 GM/DL (3.2-4.5); ALKALINE PHOSPHATASE 113 U/L (40-136); BILIRUBIN,TOTAL 0.4 MG/DL (0.1-1.0); BUN/CREATININE RATIO 11; CALCIUM 8.6 MG/DL (8.5-10.1); CARBON DIOXIDE 25 MMOL/L (21-32); CHLORIDE 104 MMOL/L (98-107); GFR ESTIMATED > 60; GLUCOSE 125 MG/DL (70-105); POTASSIUM 3.4 MMOL/L (3.6-5.0); SODIUM 138 MMOL/L (135-145); TOTAL PROTEIN 6.3 GM/DL (6.4-8.2)
[2019-08-18 09:20] LABS: BASOPHILS # (AUTO) 0.1 10^3/uL (0.0-0.1); BASOPHILS % (AUTO) 2 % (0-10); EOSINOPHILS # (AUTO) 0.1 10^3/uL (0.0-0.3); EOSINOPHILS % (AUTO) 2 % (0-10); HEMATOCRIT 32 % (40-54); HEMOGLOBIN 10.5 G/DL (13.3-17.7); LYMPHOCYTES # (AUTO) 0.7 X 10^3 (1.0-4.0); LYMPHOCYTES % (AUTO) 26 % (12-44); MEAN CORPUSCULAR HEMOGLOBIN 28 PG (25-34); MEAN CORPUSCULAR HGB CONC 33 G/DL (32-36); MEAN CORPUSCULAR VOLUME 85 FL (80-99); MEAN PLATELET VOLUME 9.4 FL (7.4-10.4); MONOCYTES # (AUTO) 1.6 X 10^3 (0.0-1.0); MONOCYTES % (AUTO) 61 % (0-12); NEUTROPHILS # (AUTO) 0.2 X 10^3 (1.8-7.8); NEUTROPHILS % (AUTO) 9 % (42-75); PLATELET COUNT 356 10^3/uL (130-400); RED CELL DISTRIBUTION WIDTH 16.6 % (10.0-14.5); WHITE BLOOD COUNT 2.6 10^3/uL (4.3-11.0)
[2019-08-18 09:43] LABS: BUN/CREATININE RATIO 9; CALCIUM 8.4 MG/DL (8.5-10.1); CARBON DIOXIDE 26 MMOL/L (21-32); CHLORIDE 106 MMOL/L (98-107); CREATININE SERUM 0.65 MG/DL (0.60-1.30); GFR ESTIMATED > 60; GLUCOSE 113 MG/DL (70-105); POTASSIUM 3.7 MMOL/L (3.6-5.0); SODIUM 138 MMOL/L (135-145)
[2019-08-31 10:41] LABS: BASOPHILS % (AUTO) 1 % (0-10); EOSINOPHILS # (AUTO) 0.1 10^3/uL (0.0-0.3); EOSINOPHILS % (AUTO) 2 % (0-10); HEMATOCRIT 34 % (40-54); HEMOGLOBIN 11.1 G/DL (13.3-17.7); LYMPHOCYTES # (AUTO) 0.9 X 10^3 (1.0-4.0); LYMPHOCYTES % (AUTO) 15 % (12-44); MEAN CORPUSCULAR HEMOGLOBIN 28 PG (25-34); MEAN CORPUSCULAR HGB CONC 33 G/DL (32-36); MEAN CORPUSCULAR VOLUME 86 FL (80-99); MEAN PLATELET VOLUME 9.6 FL (7.4-10.4); MONOCYTES # (AUTO) 1.4 X 10^3 (0.0-1.0); MONOCYTES % (AUTO) 21 % (0-12); NEUTROPHILS # (AUTO) 3.9 X 10^3 (1.8-7.8); NEUTROPHILS % (AUTO) 62 % (42-75); PLATELET COUNT 271 10^3/uL (130-400); RED CELL DISTRIBUTION WIDTH 17.8 % (10.0-14.5); WHITE BLOOD COUNT 6.4 10^3/uL (4.3-11.0)
[2019-08-31 10:55] LABS: ALANINE AMINOTRANSFERASE 15 U/L (0-55); ALBUMIN 3.4 GM/DL (3.2-4.5); ALKALINE PHOSPHATASE 127 U/L (40-136); BILIRUBIN,TOTAL 0.3 MG/DL (0.1-1.0); BUN/CREATININE RATIO 11; CALCIUM 9.1 MG/DL (8.5-10.1); CARBON DIOXIDE 25 MMOL/L (21-32); CHLORIDE 106 MMOL/L (98-107); CREATININE SERUM 0.71 MG/DL (0.60-1.30); GFR ESTIMATED > 60; GLUCOSE 150 MG/DL (70-105); POTASSIUM 3.8 MMOL/L (3.6-5.0); SODIUM 141 MMOL/L (135-145); TOTAL PROTEIN 6.2 GM/DL (6.4-8.2)
[2019-09-15 09:20] LABS: BASOPHILS % (AUTO) 2 % (0-10); EOSINOPHILS % (AUTO) 1 % (0-10); HEMATOCRIT 32 % (40-54); HEMOGLOBIN 10.3 G/DL (13.3-17.7); LYMPHOCYTES # (AUTO) 1.2 X 10^3 (1.0-4.0); LYMPHOCYTES % (AUTO) 43 % (12-44); MEAN CORPUSCULAR HEMOGLOBIN 28 PG (25-34); MEAN CORPUSCULAR HGB CONC 32 G/DL (32-36); MEAN CORPUSCULAR VOLUME 85 FL (80-99); MEAN PLATELET VOLUME 8.8 FL (7.4-10.4); MONOCYTES # (AUTO) 0.6 X 10^3 (0.0-1.0); MONOCYTES % (AUTO) 24 % (0-12); NEUTROPHILS # (AUTO) 0.8 X 10^3 (1.8-7.8); NEUTROPHILS % (AUTO) 31 % (42-75); PLATELET COUNT 365 10^3/uL (130-400); RED CELL DISTRIBUTION WIDTH 16.8 % (10.0-14.5); WHITE BLOOD COUNT 2.7 10^3/uL (4.3-11.0)
[2019-09-15 09:47] LABS: BUN/CREATININE RATIO 12; CALCIUM 8.4 MG/DL (8.5-10.1); CARBON DIOXIDE 23 MMOL/L (21-32); CHLORIDE 106 MMOL/L (98-107); CREATININE SERUM 0.67 MG/DL (0.60-1.30); GFR ESTIMATED > 60; GLUCOSE 160 MG/DL (70-105); POTASSIUM 3.5 MMOL/L (3.6-5.0); SODIUM 138 MMOL/L (135-145)
[2019-09-29 09:55] LABS: BASOPHILS # (AUTO) 0.1 10^3/uL (0.0-0.1); BASOPHILS % (AUTO) 1 % (0-10); EOSINOPHILS # (AUTO) 0.1 10^3/uL (0.0-0.3); EOSINOPHILS % (AUTO) 2 % (0-10); HEMATOCRIT 32 % (40-54); HEMOGLOBIN 10.3 G/DL (13.3-17.7); LYMPHOCYTES # (AUTO) 0.7 X 10^3 (1.0-4.0); LYMPHOCYTES % (AUTO) 14 % (12-44); MEAN CORPUSCULAR HEMOGLOBIN 27 PG (25-34); MEAN CORPUSCULAR HGB CONC 32 G/DL (32-36); MEAN CORPUSCULAR VOLUME 84 FL (80-99); MEAN PLATELET VOLUME 9.7 FL (7.4-10.4); MONOCYTES # (AUTO) 1.1 X 10^3 (0.0-1.0); MONOCYTES % (AUTO) 21 % (0-12); NEUTROPHILS # (AUTO) 3.3 X 10^3 (1.8-7.8); NEUTROPHILS % (AUTO) 63 % (42-75); PLATELET COUNT 192 10^3/uL (130-400); RED CELL DISTRIBUTION WIDTH 17.1 % (10.0-14.5); WHITE BLOOD COUNT 5.2 10^3/uL (4.3-11.0)
[2019-09-29 10:16] LABS: ALANINE AMINOTRANSFERASE 18 U/L (0-55); ALBUMIN 3.2 GM/DL (3.2-4.5); ALKALINE PHOSPHATASE 136 U/L (40-136); BILIRUBIN,TOTAL 0.6 MG/DL (0.1-1.0); BUN/CREATININE RATIO 13; CALCIUM 8.9 MG/DL (8.5-10.1); CARBON DIOXIDE 23 MMOL/L (21-32); CHLORIDE 104 MMOL/L (98-107); CREATININE SERUM 0.67 MG/DL (0.60-1.30); GFR ESTIMATED > 60; GLUCOSE 133 MG/DL (70-105); POTASSIUM 3.6 MMOL/L (3.6-5.0); SODIUM 137 MMOL/L (135-145)
[2019-10-13 08:57] LABS: BASOPHILS # (AUTO) 0.1 10^3/uL (0.0-0.1); BASOPHILS % (AUTO) 2 % (0-10); EOSINOPHILS % (AUTO) 0 % (0-10); HEMATOCRIT 31 % (40-54); HEMOGLOBIN 10.1 G/DL (13.3-17.7); LYMPHOCYTES % (AUTO) 40 % (12-44); MEAN CORPUSCULAR HEMOGLOBIN 27 PG (25-34); MEAN CORPUSCULAR HGB CONC 32 G/DL (32-36); MEAN CORPUSCULAR VOLUME 84 FL (80-99); MONOCYTES % (AUTO) 39 % (0-12); NEUTROPHILS # (AUTO) 0.5 X 10^3 (1.8-7.8); NEUTROPHILS % (AUTO) 19 % (42-75); PLATELET COUNT 386 10^3/uL (130-400); RED CELL DISTRIBUTION WIDTH 16.9 % (10.0-14.5); WHITE BLOOD COUNT 2.5 10^3/uL (4.3-11.0)
[2019-10-13 09:14] LABS: BUN/CREATININE RATIO 15; CALCIUM 8.4 MG/DL (8.5-10.1); CARBON DIOXIDE 24 MMOL/L (21-32); CHLORIDE 103 MMOL/L (98-107); CREATININE SERUM 0.65 MG/DL (0.60-1.30); GFR ESTIMATED > 60; GLUCOSE 118 MG/DL (70-105); POTASSIUM 3.7 MMOL/L (3.6-5.0); SODIUM 136 MMOL/L (135-145)
[~2019-10-14 10:01] MED LIST changes: +ACETAMINOPHEN 325 MG TAB (TYLENOL) CANCER CTR PO PRN; -CATHETER FLUSH 10 ML SYR IV PRN; +DACARBAZINE IV SCH; +DOXORUBICIN HCL IV SCH; +FOSAPREPITANT (CANCER CENTER) 150 MG in NS (IVPB) CANCER CENTER ONLY 150 ML IV SCH; -HEParin (CENTRAL IV FLUSH) 500 UNIT/5 ML SYR ONE; +LORazepam INJ 2 MG/ML VIAL CANCER CTR IV SCH; +NS IV 1000 ML (CANCER CTR) IV SCH; +NS IV SCH; +PEGFILGRASTIM 6 MG/0.6ML NEULASTA SC SCH; +VINBLASTINE SULFATE IV SCH
== END 2019-10-26 | disposition home or self-care (01) ==
LOC: ONC 10:01
PROVIDERS: ATTEND Internal Medicine Hematology & Oncology
DX: Z51.11 Encounter for antineoplastic chemotherapy (principal); C81.18 Nodular sclerosis Hodgkin lymphoma, lymph nodes of multiple sites; Z92.21 Personal history of antineoplastic chemotherapy
CPT/HCPCS: 80048; 85025; G0463; 36591; 80053; 83615; 96367; 96372; 96375; 96411; 96413; 99213

== ENCOUNTER → 2019-10-25 | Outpatient (CLI) | payer OTHER ==
[~2019-10-25] MED LIST changes: -ACETAMINOPHEN 325 MG TAB (TYLENOL) CANCER CTR PO PRN; -DACARBAZINE IV SCH; -DOXORUBICIN HCL IV SCH; -FOSAPREPITANT (CANCER CENTER) 150 MG in NS (IVPB) CANCER CENTER ONLY 150 ML IV SCH; -LORazepam INJ 2 MG/ML VIAL CANCER CTR IV SCH; -NS IV 1000 ML (CANCER CTR) IV SCH; -NS IV SCH; -PEGFILGRASTIM 6 MG/0.6ML NEULASTA SC SCH; -VINBLASTINE SULFATE IV SCH
--- NOTE | 2019-10-25 13:04 | Diagnostic Imaging Report ---
INDICATION: Hodgkin's lymphoma, subsequent restaging. TECHNIQUE: The serum blood glucose level at the time of injection was 131 mg/dL. The patient was administered 14.3 mCi of F-18 FDG intravenously in the left antecubital location and PET imaging was performed from the top of the skull to the mid thighs. Noncontrast CT was also performed for attenuation correction and anatomic correlation. COMPARISON: Correlation is made with the prior PET/CT study from 07/05/2019. FINDINGS: There is symmetric activity throughout the brain. The soft tissues of the neck are unremarkable. No definite hypermetabolic lymph nodes in the mediastinum or néstor are identified. No hypermetabolic pulmonary parenchymal abnormalities are seen. There is physiologic activity in the GI and tracts of the abdomen and pelvis. There are bilateral renal calculi with the largest on the right measuring approximately 27 mm x 14 mm. There is some hydronephrosis of the right kidney with stranding surrounding the dilated renal pelvis. No definite ureteral dilatation or ureteral calculi are seen. A calculus on the left measures 11 mm. There is some hazy stranding to the central mesentery with shotty lymph nodes. These do not appear to be hypermetabolic. No definite hypermetabolic retroperitoneal lymph nodes are identified. There is a hypermetabolic left iliac node present with an SUV max of 7.8. There are enlarged left obturator nodes present as well which are not hypermetabolic. A left iliac node is 2.8 cm in diameter. A left obturator node is 2.9 cm. There are innumerable hypermetabolic osseous lesions present which were not present on the prior exam. These lesions involve the cervical, thoracic, and lumbar spine. There are numerous lesions involving the bony pelvis and proximal left femur. There is abnormal uptake involving bilateral ribs as well as the medial aspects of the clavicles. There is abnormal hypermetabolism within the sternum inferiorly. The right scapula demonstrates a hypermetabolic lesion. IMPRESSION: 1. Adverse appearance to the PET/CT study when compared with the exam from 07/05/2019. There are now innumerable osseous lesions, as described, which demonstrate hypermetabolic activity. There is some hypermetabolism involving left iliac lymph nodes. 2. Bilateral nephrolithiasis. A large calculus in the right kidney is producing moderate hydronephrosis and pelviectasis with surrounding inflammatory stranding. No ureteral calculi or ureteral dilatation is identified. Dictated by: Dictated on workstation # [id number]
== END ==
LOC: CARD 09:16
PROVIDERS: ATTEND Internal Medicine Hematology & Oncology
DX: Z51.81 Encounter for therapeutic drug level monitoring (principal); C81.18 Nodular sclerosis Hodgkin lymphoma, lymph nodes of multiple sites; N20.0 Calculus of kidney; I51.7 Cardiomegaly
CPT/HCPCS: 78815; 93306; A9552

== ENCOUNTER 2019-10-28 10:49 | Outpatient (RCR) | payer OTHER ==
[2019-10-28 11:02] LABS: BASOPHILS # (AUTO) 0.1 10^3/uL (0.0-0.1); BASOPHILS % (AUTO) 1 % (0-10); EOSINOPHILS % (AUTO) 0 % (0-10); HEMATOCRIT 33 % (40-54); HEMOGLOBIN 10.6 G/DL (13.3-17.7); LYMPHOCYTES # (AUTO) 1.1 X 10^3 (1.0-4.0); LYMPHOCYTES % (AUTO) 12 % (12-44); MEAN CORPUSCULAR HEMOGLOBIN 27 PG (25-34); MEAN CORPUSCULAR HGB CONC 32 G/DL (32-36); MEAN CORPUSCULAR VOLUME 86 FL (80-99); MEAN PLATELET VOLUME 9.4 FL (7.4-10.4); MONOCYTES # (AUTO) 1.5 X 10^3 (0.0-1.0); MONOCYTES % (AUTO) 18 % (0-12); NEUTROPHILS # (AUTO) 5.9 X 10^3 (1.8-7.8); NEUTROPHILS % (AUTO) 69 % (42-75); PLATELET COUNT 231 10^3/uL (130-400); WHITE BLOOD COUNT 8.5 10^3/uL (4.3-11.0)
[2019-10-28 11:28] LABS: ALANINE AMINOTRANSFERASE 20 U/L (0-55); ALBUMIN 3.3 GM/DL (3.2-4.5); ALKALINE PHOSPHATASE 189 U/L (40-136); BILIRUBIN,TOTAL 0.5 MG/DL (0.1-1.0); BUN/CREATININE RATIO 10; CALCIUM 9.1 MG/DL (8.5-10.1); CARBON DIOXIDE 25 MMOL/L (21-32); CHLORIDE 104 MMOL/L (98-107); CREATININE SERUM 0.67 MG/DL (0.60-1.30); GFR ESTIMATED > 60; GLUCOSE 112 MG/DL (70-105); POTASSIUM 3.8 MMOL/L (3.6-5.0); SODIUM 138 MMOL/L (135-145); TOTAL PROTEIN 6.2 GM/DL (6.4-8.2)
== END 2020-01-26 | disposition home or self-care (01) ==
LOC: ONC 10:49
PROVIDERS: ATTEND Internal Medicine Hematology & Oncology
DX: C81.18 Nodular sclerosis Hodgkin lymphoma, lymph nodes of multiple sites (principal); I82.402 Acute embolism and thrombosis of unspecified deep veins of left lower extremity; I10 Essential (primary) hypertension; Z92.21 Personal history of antineoplastic chemotherapy
CPT/HCPCS: 80053; 83615; 85025; G0463; 99213

== ENCOUNTER 2020-02-02 10:42 | Outpatient (RCR) | payer OTHER ==
[2020-02-02 10:56] LABS: BASOPHILS % (AUTO) 0 % (0-10); EOSINOPHILS % (AUTO) 1 % (0-10); HEMATOCRIT 30 % (40-54); HEMOGLOBIN 9.8 g/dL (13.3-17.7); LYMPHOCYTES # (AUTO) 0.6 10^3/uL (1.0-4.0); LYMPHOCYTES % (AUTO) 8 % (12-44); MEAN CORPUSCULAR HEMOGLOBIN 27 pg (25-34); MEAN CORPUSCULAR HGB CONC 32 g/dL (32-36); MEAN CORPUSCULAR VOLUME 83 fL (80-99); MEAN PLATELET VOLUME 8.7 fL (9.0-12.2); MONOCYTES # (AUTO) 1.7 10^3/uL (0.0-1.0); MONOCYTES % (AUTO) 23 % (0-12); NEUTROPHILS # (AUTO) 4.9 10^3/uL (1.8-7.8); NEUTROPHILS % (AUTO) 68 % (42-75); PLATELET COUNT 261 10^3/uL (130-400); WHITE BLOOD COUNT 7.3 10^3/uL (4.3-11.0)
[2020-02-02 11:15] LABS: ALANINE AMINOTRANSFERASE 19 U/L (0-55); ALBUMIN 2.9 GM/DL (3.2-4.5); ALKALINE PHOSPHATASE 193 U/L (40-136); BILIRUBIN,TOTAL 0.9 MG/DL (0.1-1.0); BUN/CREATININE RATIO 14; CALCIUM 8.5 MG/DL (8.5-10.1); CARBON DIOXIDE 23 MMOL/L (21-32); CHLORIDE 101 MMOL/L (98-107); CREATININE SERUM 0.63 MG/DL (0.60-1.30); GFR ESTIMATED > 60; GLUCOSE 117 MG/DL (70-105); POTASSIUM 4.1 MMOL/L (3.6-5.0); SODIUM 135 MMOL/L (135-145); TOTAL PROTEIN 6.4 GM/DL (6.4-8.2)
[2020-02-27] MEDS ORDERED: PANT40TA52 PO (19:29)
[2020-02-28] MEDS ORDERED: MULT-228 PO (10:46)
[2020-02-28] MEDS ORDERED: TMSL.4C PO (10:46)
[2020-02-28] MEDS ORDERED: DOCU-143 PO (10:46)
[2020-02-28] MEDS ORDERED: POLY17PO6 PO (10:46)
[2020-02-29] MEDS ORDERED: CEPH-507 PO (14:20)
[2020-03-08] MEDS ORDERED: HYDR-4227 PO (08:44)
== END 2020-03-08 16:44 | disposition home or self-care (01) ==
LOC: ONC 10:42
PROVIDERS: ATTEND Internal Medicine Hematology & Oncology
DX: C81.18 Nodular sclerosis Hodgkin lymphoma, lymph nodes of multiple sites (principal); I82.402 Acute embolism and thrombosis of unspecified deep veins of left lower extremity; I10 Essential (primary) hypertension; Z92.21 Personal history of antineoplastic chemotherapy
CPT/HCPCS: 80053; 83615; 85025; G0463; 36591; 99213

== ENCOUNTER 2020-02-27 08:36 | Inpatient (IN) | payer OTHER ==
[~2020-02-27] VITALS: Ht 177 cm; Wt 81.8 kg
[2020-02-27] MEDS ORDERED: LACTATED RINGERS 1,000 ML IV ONE ×2 (09:30→20:15)
--- NOTE | 2020-02-27 09:52 | NUR ---
GAVE UPDATE TO PAT.
[2020-02-27 09:57] LABS: BASOPHILS % (AUTO) 0 % (0-10); EOSINOPHILS % (AUTO) 0 % (0-10); HEMATOCRIT 28 % (40-54); LYMPHOCYTES # (AUTO) 0.6 10^3/uL (1.0-4.0); LYMPHOCYTES % (AUTO) 6 % (12-44); MEAN CORPUSCULAR HEMOGLOBIN 26 pg (25-34); MEAN CORPUSCULAR HGB CONC 32 g/dL (32-36); MEAN CORPUSCULAR VOLUME 81 fL (80-99); MEAN PLATELET VOLUME 8.8 fL (9.0-12.2); MONOCYTES # (AUTO) 1.9 10^3/uL (0.0-1.0); MONOCYTES % (AUTO) 19 % (0-12); NEUTROPHILS # (AUTO) 7.3 10^3/uL (1.8-7.8); NEUTROPHILS % (AUTO) 73 % (42-75); PLATELET COUNT 261 10^3/uL (130-400)
[2020-02-27 10:14] LABS: ALANINE AMINOTRANSFERASE 14 U/L (0-55); ALBUMIN 2.5 GM/DL (3.2-4.5); ALKALINE PHOSPHATASE 234 U/L (40-136); BILIRUBIN,TOTAL 1.4 MG/DL (0.1-1.0); BUN/CREATININE RATIO 28; CARBON DIOXIDE 26 MMOL/L (21-32); CHLORIDE 98 MMOL/L (98-107); CREATININE SERUM 0.64 MG/DL (0.60-1.30); GFR ESTIMATED > 60; GLUCOSE 116 MG/DL (70-105); SODIUM 130 MMOL/L (135-145); TOTAL PROTEIN 5.7 GM/DL (6.4-8.2)
[2020-02-27 10:18] LABS: ANISOCYTOSIS SLIGHT; BAND NEUTROPHILS 3 %; BASOPHILS % (MANUAL) 0 %; EOSINOPHILS % (MANUAL) 0 %; LYMPHOCYTES % (MANUAL) 4 %; MONOCYTES % (MANUAL) 11 %; NEUTROPHILS % (MANUAL) 82 %; POLYCHROMASIA SLIGHT
[2020-02-27 10:20] LABS: CLARITY,URINE CLEAR; COLOR,URINE ORANGE; GLUCOSE, URINE (UA) NEGATIVE (NEGATIVE); KETONES,URINE NEGATIVE (NEGATIVE); LEUKOCYTE ESTERASE ,URINE 1+ (NEGATIVE); NITRITE,URINE NEGATIVE (NEGATIVE); PH,URINE 5.5 (5-9); PROTEIN,URINE TRACE (NEGATIVE)
[2020-02-27 10:31] LABS: BILIRUBIN,URINE 1+ (NEGATIVE); RBC,URINE RARE /HPF
[2020-02-27 10:32] LABS: BACTERIA,URINE MODERATE /HPF; CALCIUM OXALATE CRYSTALS,UR FEW /LPF; SQUAMOUS EPITHELIAL CELL,UR RARE /HPF; WBC,URINE >100 /HPF
[2020-02-27] MEDS ORDERED: cefTRIAXone FOR IV USE 1,000 MG in WATER (STERILE) FOR INJECTION 10 ML IV ONE (10:45)
--- NOTE | 2020-02-27 10:46 | Diagnostic Imaging Report ---
INDICATION: Lymphoma and weakness and shortness of breath. Frontal chest obtained at 10:07 a.m. compared to 05/04/2019. FINDINGS: Heart is normal size. There is very poor inspiration. Port-A-Cath is unchanged. There is some mild left basilar atelectasis. There is no consolidation or significant pleural fluid. There is bilateral hilar prominence which may represent adenopathy. IMPRESSION: Stable bilateral hilar prominence which may represent adenopathy. Poor inspiration with mild left basilar atelectasis. Dictated by: Dictated on workstation # [id number]
[2020-02-27 10:51] LABS: INR 1.6 (0.8-1.4)
--- NOTE | 2020-02-27 11:08 | NUR ---
LAB IN ROOM AT THIS TIME.
--- NOTE | 2020-02-27 11:19 | NUR ---
COVID SWAB DONE B DR GORDILLO
--- NOTE | 2020-02-27 11:27 | ED General ---
General Chief Complaint: General Problems/Pain Stated Complaint: WEAKNESS LEGS SWOLLEN ABD DISTENDED/DIARRHEA Nursing Triage Note: TO ED PER W/C HAS PMH OF LYMPHOMA HERE TO TODAY BECAUSE FOR SEVERAL MONTHS HIS ABD HAS BEEN SWOLLEN AND LEGS AND HAS BECOME WEAK. Nursing Sepsis Screen: No Definite Risk Source of Information: Patient Exam Limitations: No Limitations History of Present Illness Date Seen by Provider: Feb 27, 2020 Time Seen by Provider: 09:29 Initial Comments This is 64-year-old gentleman with recent history of Hodgkin's lymphoma presents to the emergency room with complaints of progressive generalized weakness over the past couple of months. 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 Today he is unable to dress himself. He also complains of lower extremity edema and abdominal distention of unknown cause. He also complains of nocturnal orthopnea and cough. That has been going on for about a month. He denies any fever, vomiting, or diarrhea. Dr. Cloud is his oncologist. He claims no primary care provider at this time. He has not been seen by In a couple of months. Allergies and Home Medications Allergies Coded Allergies: No Known Drug Allergies (Unverified , 04/19/19) Home Medications Pantoprazole Sodium 40 Mg Tablet.dr, 40 MG PO DAILY, (Reported) Patient Home Medication List Home Medication List Reviewed: Yes Review of Systems Review of Systems Constitutional: see HPI EENTM: no symptoms reported Respiratory: see HPI Cardiovascular: no symptoms reported Gastrointestinal: see HPI Genitourinary: no symptoms reported Musculoskeletal: no symptoms reported Skin: no symptoms reported Psychiatric/Neurological: No Symptoms Reported Hematologic/Lymphatic: See HPI Immunological/Allergic: see HPI Past Gxckejw-Awkxvb-Cyjjfd Hx Past Med/Social Hx: Reviewed and Corrections made Patient Social History Alcohol Use: Denies Use Recreational Drug Use: No Smoking Status: Never a Smoker 2nd Hand Smoke Exposure: No Recent Foreign Travel: No Contact w/Someone Who Travel: No Recent Infectious Disease Expo: No Recent Hopitalizations: No Seasonal Allergies Seasonal Allergies: No Past Medical History Surgeries: Yes (HERNIA, lymph node removed) Respiratory: No Currently Using CPAP: No Currently Using BIPAP: No Cardiac: Yes Hypertension Neurological: No Genitourinary: No Gastrointestinal: No Musculoskeletal: No Endocrine: No HEENT: No Cancer: Yes Lymphoma Psychosocial: No Integumentary: No Blood Disorders: Yes (DVT IN LEFT LEG) Physical Exam Vital Signs Vital Signs - First Documented 02/27/20 02/27/20 08:43 13:24 Temp 36.5 Pulse 127 Resp 18 B/P (MAP) 149/72 (97) Pulse Ox 97 O2 Delivery Room Air Capillary Refill : Less Than 3 Seconds Height, Weight, BMI Height: '" Weight: lbs. oz. 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 Norm as Tested Skin: Normal Color, Warm/Dry Focused Exam Lactate Level 02/27/20 19:10: Lactic Acid Level 3.04*H 02/27/20 21:40: Lactic Acid Level 2.39*H 02/27/20 23:40: Lactic Acid Level 2.00 Lactic Acid Level Progress/Results/Core Measures Suspected Sepsis Recent Fever Within 48 Hours: No Infection Criteria Present: None New/Unexplained Altered Menta: No Sepsis Screen: No Definite Risk SIRS Temperature: Pulse: 127 Respiratory Rate: 18 Laboratory Tests 02/27/20 09:49: White Blood Count 10.0 02/28/20 05:50: White Blood Count 8.1 Blood Pressure 149 /72 Mean: 97 02/27/20 19:10: Lactic Acid Level 3.04*H 02/27/20 21:40: Lactic Acid Level 2.39*H 02/27/20 23:40: Lactic Acid Level 2.00 Laboratory Tests 02/27/20 09:49: Creatinine 0.64, INR Comment 1.6H, Platelet Count 261, Total Bilirubin 1.4H 02/28/20 05:50: Creatinine 0.59L, Platelet Count 229 Results/Orders Lab Results Laboratory Tests Test 02/27/20 09:49 02/27/20 10:07 02/27/20 11:10 02/27/20 11:15 Range/Units White Blood Count 10.0 4.3-11.0 10^3/uL Red Blood Count 3.50 L 4.30-5.52 10^6/uL Hemoglobin 9.0 L 13.3-17.7 g/dL Hematocrit 28 L 40-54 % Mean Corpuscular Volume 81 80-99 fL Mean Corpuscular Hemoglobin 26 25-34 pg Mean Corpuscular Hemoglobin Concent 32 32-36 g/dL Red Cell Distribution Width 18.3 H 10.0-14.5 % Platelet Count 261 130-400 10^3/uL Mean Platelet Volume 8.8 L 9.0-12.2 fL Immature Granulocyte % (Auto) 2 % Neutrophils (%) (Auto) 73 42-75 % Lymphocytes (%) (Auto) 6 L 12-44 % Monocytes (%) (Auto) 19 H 0-12 % Eosinophils (%) (Auto) 0 0-10 % Basophils (%) (Auto) 0 0-10 % Neutrophils # (Auto) 7.3 1.8-7.8 10^3/uL Lymphocytes # (Auto) 0.6 L 1.0-4.0 10^3/uL Monocytes # (Auto) 1.9 H 0.0-1.0 10^3/uL Eosinophils # (Auto) 0.0 0.0-0.3 10^3/uL Basophils # (Auto) 0.0 0.0-0.1 10^3/uL Immature Granulocyte # (Auto) 0.2 H 0.0-0.1 10^3/uL Neutrophils % (Manual) 82 % Lymphocytes % (Manual) 4 % Monocytes % (Manual) 11 % Eosinophils % (Manual) 0 % Basophils % (Manual) 0 % Band Neutrophils 3 % Polychromasia SLIGHT Anisocytosis SLIGHT Prothrombin Time 19.0 H 12.2-14.7 SEC INR Comment 1.6 H 0.8-1.4 Activated Partial Thromboplast Time 41 H 24-35 SEC Sodium Level 130 L 135-145 MMOL/L Potassium Level 4.0 3.6-5.0 MMOL/L Chloride Level 98 98-107 MMOL/L Carbon Dioxide Level 26 21-32 MMOL/L Anion Gap 6 5-14 MMOL/L Blood Urea Nitrogen 18 7-18 MG/DL Creatinine 0.64 0.60-1.30 MG/DL Estimat Glomerular Filtration Rate > 60 BUN/Creatinine Ratio 28 Glucose Level 116 H 70-105 MG/DL Calcium Level 9.0 8.5-10.1 MG/DL Corrected Calcium 10.2 H 8.5-10.1 MG/DL Magnesium Level 2.0 1.6-2.4 MG/DL Total Bilirubin 1.4 H 0.1-1.0 MG/DL Aspartate Amino Transf (AST/SGOT) 31 5-34 U/L Alanine Aminotransferase (ALT/SGPT) 14 0-55 U/L Alkaline Phosphatase 234 H 40-136 U/L C-Reactive Protein High Sensitivity 14.28 H 0.00-0.50 MG/DL B-Type Natriuretic Peptide 62.7 <100.0 PG/ML Total Protein 5.7 L 6.4-8.2 GM/DL Albumin 2.5 L 3.2-4.5 GM/DL Urine Color ORANGE Urine Clarity CLEAR Urine pH 5.5 5-9 Urine Specific [place] >=1.030 1.016-1.022 Urine Protein TRACE H NEGATIVE Urine Glucose (UA) NEGATIVE NEGATIVE Urine Ketones NEGATIVE NEGATIVE Urine Nitrite NEGATIVE NEGATIVE Urine Bilirubin 1+ H NEGATIVE Urine Urobilinogen 1.0 < = 1.0 MG/DL Urine Leukocyte Esterase 1+ H NEGATIVE Urine RBC (Auto) NEGATIVE NEGATIVE Urine RBC RARE /HPF Urine WBC >100 H /HPF Urine Squamous Epithelial Cells RARE /HPF Urine Crystals PRESENT H /LPF Urine Calcium Oxalate Crystals FEW H /LPF Urine Bacteria MODERATE H /HPF Urine Casts NONE /LPF Urine Mucus MODERATE H /LPF Urine Culture Indicated YES Coronavirus (COVID-19)(PCR) Negative Negative Coronavirus 2019 (CARLOS) Negative Negative Lactic Acid Level 2.71 *H 0.50-2.00 MMOL/L Test 02/27/20 14:13 02/27/20 17:06 02/27/20 19:10 02/27/20 21:40 Range/Units Lactic Acid Level 3.18 *H 2.35 *H 3.04 *H 2.39 *H 0.50-2.00 MMOL/L Test 02/27/20 23:40 02/28/20 05:50 Range/Units Lactic Acid Level 2.00 0.50-2.00 MMOL/L White Blood Count 8.1 4.3-11.0 10^3/uL Red Blood Count 3.22 L 4.30-5.52 10^6/uL Hemoglobin 8.4 L 13.3-17.7 g/dL Hematocrit 26 L 40-54 % Mean Corpuscular Volume 81 80-99 fL Mean Corpuscular Hemoglobin 26 25-34 pg Mean Corpuscular Hemoglobin Concent 32 32-36 g/dL Red Cell Distribution Width 18.4 H 10.0-14.5 % Platelet Count 229 130-400 10^3/uL Mean Platelet Volume 8.7 L 9.0-12.2 fL Sodium Level 130 L 135-145 MMOL/L Potassium Level 4.0 3.6-5.0 MMOL/L Chloride Level 98 98-107 MMOL/L Carbon Dioxide Level 25 21-32 MMOL/L Anion Gap 7 5-14 MMOL/L Blood Urea Nitrogen 16 7-18 MG/DL Creatinine 0.59 L 0.60-1.30 MG/DL Estimat Glomerular Filtration Rate > 60 BUN/Creatinine Ratio 27 Glucose Level 103 70-105 MG/DL Calcium Level 8.8 8.5-10.1 MG/DL My Orders Orders - MELISA RANKIN MD Cbc With Automated Diff (02/27/20 09:29) Comprehensive Metabolic Panel (02/27/20 09:29) Hs C Reactive Protein (02/27/20 09:29) Magnesium (02/27/20 09:29) Ua Culture If Indicated (02/27/20 09:29) Ed Iv/Invasive Line Start (02/27/20 09:29) Lactated Ringers (Lr 1000 Ml Iv Solution (02/27/20 09:30) Ekg Tracing (02/27/20 09:42) Monitor-Rhythm Ecg Trace Only (02/27/20 09:42) BNP (02/27/20 09:42) Chest 1 View, Ap/Pa Only (02/27/20 09:42) Manual Differential (02/27/20 09:49) Urine Culture (02/27/20 10:07) Blood Culture (02/27/20 10:37) Sputum Culture (02/27/20 10:37) Protime With Inr (02/27/20 10:37) Partial Thromboplastin Time (02/27/20 10:37) Remove Rings In Anticipation O (02/27/20 10:37) Lactic Acid Analyzer (02/27/20 10:37) Ceftriaxone For Iv Use (Rocephin For I (02/27/20 10:45) Covid 19 Inhouse Test (02/27/20 10:45) Ondansetron Injection (Zofran Injectio (02/27/20 11:45) Medications Given in ED Vital Signs/I&O 02/27/20 02/27/20 02/27/20 02/28/20 19:16 20:05 23:51 04:00 Temp 37.3 36.5 36.6 Pulse 120 109 106 Resp 18 19 18 B/P (MAP) 121/83 (96) 123/76 (92) 133/82 (99) Pulse Ox 96 94 92 O2 Delivery Room Air Room Air Room Air Room Air Capillary Refill : Less Than 3 Seconds Blood Pressure Mean: 97 Progress Note : Time: 11:36 Progress Note Patient was found to have significant pyuria. This is likely contributing to his weakness. However, he also has abdominal distention and lower extremity edema and may have other pathology related to his Hodgkin's lymphoma. Dr. Cloud was consulted. He requested Covid swabs be obtained. If the swabs are negative, he suggests obtaining antibodies. Swabs are pending at this time. Patient received a liter of IV fluid due to his tachycardia. Lactic acid and blood cultures are pending. Rocephin is being given for initial antibiotic therapy. Patient is being admitted to the hospital service since he claims no primary care provider. ECG Initial ECG Impression Date: Feb 27, 2020 Initial ECG Impression Time: 09:54 Initial ECG Rate: 115 Initial ECG Rhythm: Normal Sinus Comment Sinus rhythm with no ST elevation or depression. No abnormal intervals or axis deviation. Diagnostic Imaging Diagonstic Imaging: Xray Plain Films/CT/US/NM/MRI: chest Comments Chest x-ray viewed by me and report reviewed. See report below: NAME: PRATIK MELÉNDEZ [facility] REC#: [id number] PT STATUS: REG ER : 1955 PHYSICIAN: MELISA RANKIN MD ADMIT DATE: 02/27/20/ER Draft Date of Exam:02/27/20 CHEST 1 VIEW, AP/PA ONLY INDICATION: Lymphoma and weakness and shortness of breath. Frontal chest obtained at 10:07 a.m. compared to 05/04/2019. FINDINGS: Heart is normal size. There is very poor inspiration. Port-A-Cath is unchanged. There is some mild left basilar atelectasis. There is no consolidation or significant pleural fluid. There is bilateral hilar prominence which may represent adenopathy. IMPRESSION: Stable bilateral hilar prominence which may represent adenopathy. Poor inspiration with mild left basilar atelectasis. Dictated on workstation # [id number] Dict: 02/27/20 1043 Trans: 02/27/20 1046 [id number] Interpreted by: YAQUELIN SOTO MD Departure Communication (Admissions) Time/Spoke to Admitting Phy: 10:50 Dr. Bird Time/Spoke to Consulting Phy: 10:45 Dr. Cloud Impression Primary Impression: Urinary tract infection Qualified Codes: N39.0 - Urinary tract infection, site not specified Additional Impressions: Generalized weakness Anemia Qualified Codes: D64.9 - Anemia, unspecified Person under investigation for COVID-19 Abdominal distention Disposition: ADMITTED INPATIENT Condition: Stable Admissions Decision to Admit Reason: Admit from ER (General) Decision to Admit/Date: Feb 27, 2020 Time/Decision to Admit Time: 11:00 Departure-Patient Inst. Referrals: HAO QUINTANA MD (PCP/Family) Primary Care Physician MELISA RANKIN MD Feb 27, 2020 11:27
[2020-02-27] MEDS ORDERED: ONDANSETRON 4 MG/2 ML (SDV) Z0FRAN IVP ONE (11:45)
--- NOTE | 2020-02-27 12:13 | NUR ---
CALLED AND UPATE GIVEN TO INFORMED THAT HE WAS BEING ADMITED
--- NOTE | 2020-02-27 12:13 | NUR ---
attempt to call report et no answer.
--- NOTE | 2020-02-27 12:16 | NUR ---
attempt to call report et no answer.
--- NOTE | 2020-02-27 12:31 | NUR ---
REPORT CALLED TO JAMILA.
--- NOTE | 2020-02-27 12:54 | NUR ---
TALKED WITH JAMILA ON WHO STATES THE PT'S ROOM IS BEING WORKED ON AT THE MOMENT.
--- NOTE | 2020-02-27 13:16 | NUR ---
PT UP IN HALLWAY WANTING TO USE THE BATHROOM. EXPLAINED TO HIM HE WAS IN [facility]. COMMODE TOOK TO ROOM ET PT REFUSES TO USE IT. REQUEST BOTTLED WATER. BOTTLED WATER GAVE TO HIM.
[2020-02-27 13:29] VITALS: BP 149/86
[2020-02-27 15:36] VITALS: BP 135/78
--- NOTE | 2020-02-27 16:28 | History & Physical-Hospitalist ---
History of Present Illness HPI/Chief Complaint Pt is a 64yoCM with a PMH of Hodgkin Lymphoma who presented to the ER due to 6-7 days history of weakness, nausea, and poor appetite. He was diagnosed with Hodgkin Lymphoma roughly one year ago and completely chemotherapy and did well with it and has been in remission per patient. He saw Dr Fallon a couple of weeks ago and was feeling very well then too but progressively over the last few days noticed a steady decline. He was unable to get up and walk or even dress himself. He also has leg swelling that has been present "forever" per patient. When asked to clarify further he states it started around the time he had chemo. He did have two inguinal node biopsies this spring but he does not feel like it was related that that. He only two current concerns are that he is hungry and that he worried this is his cancer returning. Source: patient Date Seen 02/27/20 Time Seen by a Provider: 16:20 Attending Physician Shyla Bird MD PCP Chauncey Sagastume MD Referring Physician Date of Admission Feb 27, 2020 at 11:20 Home Medications & Allergies Home Medications Reviewed patient Home Medication Reconciliation performed by pharmacy medication reconciliations pharmacy technician infusion and/or nursing. Patients Allergies have been reviewed. Allergies Allergies Coded Allergies No Known Drug Allergies (Unverified04/19/19) Past Vzqlhrw-Cbtrkw-Edczeq Hx Past Med/Social Hx: Reviewed Nursing Past Med/Soc Hx, Reviewed and Corrections made Patient Social History Marrital Status: Alcohol Use: Denies Use Recreational Drug Use: No Smoking Status: Never a Smoker 2nd Hand Smoke Exposure: No Recent Foreign Travel: No Contact w/other who traveled: No Recent Hopitalizations: No Recent Infectious Disease Expo: No Seasonal Allergies Seasonal Allergies: No Past Medical History Currently Using CPAP: No Currently Using BIPAP: No Cardiac: Hypertension Cancer: Lymphoma History of Blood Disorders: Yes (DVT IN LEFT LEG) Family History Reviewed Nursing Family Hx No Pertinent Family Hx Review of Systems Constitutional: No chills, No fever; malaise, weakness EENTM: no symptoms reported Respiratory: No cough; orthopnea; No short of breath Cardiovascular: No chest pain, No edema, No palpitations Gastrointestinal: No abdominal pain, No constipation, No diarrhea; loss of appetite, nausea; No vomiting Genitourinary: No dysuria; frequency Musculoskeletal: no symptoms reported Skin: no symptoms reported Psychiatric/Neurological: No Symptoms Reported Physical Exam Physical Exam Vital Signs Vital Signs - First Documented 02/27/20 02/27/20 08:43 13:24 Temp 36.5 Pulse 127 Resp 18 B/P (MAP) 149/72 (97) Pulse Ox 97 O2 Delivery Room Air Capillary Refill : Less Than 3 Seconds Height, Weight, BMI Height: '" Weight: lbs. oz. kg; 26.10 BMI Method: General Appearance: No Apparent Distress, Chronically ill, Thin HEENT: PERRL/EOMI, Moist Mucous Membranes Neck: Normal Inspection, Supple Respiratory: Lungs Clear, No Accessory Muscle Use, No Respiratory Distress Cardiovascular: Regular Rate, Rhythm, No Murmur Gastrointestinal: Normal Bowel Sounds, Non Tender, Soft Extremity: Normal Capillary Refill, No Calf Tenderness, Swelling (2-3+ pitting edema to knees bilaterally) Neurologic/Psychiatric: Alert, Oriented x3, Normal Mood/Affect Skin: Normal Color, Warm/Dry Results Results/Procedures Labs Laboratory Tests 02/27/20 09:49 Patient resulted labs reviewed. Imaging: Reviewed Imaging Report Imaging [facility] [place] NAME: PRATIK MELÉNDEZ L[facility] REC#: [id number] PT STATUS: ADM IN : 1955 PHYSICIAN: MELISA RANKIN MD ADMIT DATE: 02/27/20 Signed Date of Exam:02/27/20 CHEST 1 VIEW, AP/PA ONLY INDICATION: Lymphoma and weakness and shortness of breath. Frontal chest obtained at 10:07 a.m. compared to 05/04/2019. FINDINGS: Heart is normal size. There is very poor inspiration. Port-A-Cath is unchanged. There is some mild left basilar atelectasis. There is no consolidation or significant pleural fluid. There is bilateral hilar prominence which may represent adenopathy. IMPRESSION: Stable bilateral hilar prominence which may represent adenopathy. Poor inspiration with mild left basilar atelectasis. Dictated by: Dictated on workstation # [id number] Dict: 02/27/20 1043 Trans: 02/27/20 1232 [id number] Interpreted by: YAQUELIN SOTO MD Electronically signed by: YAQUELIN SOTO MD 02/27/20 7849 Assessment/Plan Admission Diagnosis UTI Admission Status: Inpatient Order (span 2 midnights) Reason for Inpatient Admission: see below Assessment and Plan UTI Dehydration with lactic acidosis Continue on abx Await cultures (previous urine cultures show no growth) Rapid COVID negative, PCR pending Continue IVF PT/OT Hodgkin Lymphoma Follows with Dr Cloud who is consulted, appreciate recs Patient is concerned about recurrence DVT ppx: SHYLA Boyd MD Feb 27, 2020 16:28
[2020-02-27] MEDS ORDERED: ANTACID SUSP 30 ML UDC (MYLANTA) PO PRN (17:00)
[2020-02-27] MEDS ORDERED: ONDANSETRON 4 MG/2 ML (SDV) Z0FRAN IV PRN (17:00)
[2020-02-27] MEDS ORDERED: MILK OF MAGNESIA 400 MG/5 ML 30 ML UDC PO PRN (17:00)
[2020-02-27] MEDS ORDERED: MELATONIN 3 MG TABLET PO PRN (17:00)
[2020-02-27] MEDS ORDERED: ACETAMINOPHEN 325 MG TABLET PO PRN (17:00)
[2020-02-27 19:16] VITALS: BP 121/83
[2020-02-27] MEDS ORDERED: PANT40TA52 PO (19:29)
[2020-02-27] MEDS: LACTATED RINGERS 1,000 ML IV SCH (19:55)
--- NOTE | 2020-02-27 20:05 | NUR ---
Dr. Walker notified of Lactic Acid at 3.04, last documented heart rate at 120, but also informed that IVF are just now getting started on pt by day shift RN. New orders rec for LR Bolus (wide open) x 1 Liter, then 250 mls/hr x 1 Liter, then decrease IV rate to 150 mls/hr. Also, Tylenol 1000mg po q 6 hr prn pain.
[2020-02-27] MEDS ORDERED: ACETAMINOPHEN 500 MG TAB (TYLENOL) PO PRN (20:15)
[2020-02-27] MEDS ORDERED: LACTATED RINGERS 1,000 ML IV SCH (21:15)
[2020-02-27] MEDS: ENOXAPARIN 40 MG/0.4 ML (LOVENOX) SYR SQ SCH (21:43)
[2020-02-27 23:51] VITALS: BP 123/76
[2020-02-28] MEDS: LACTATED RINGERS 1,000 ML IV SCH ×3 (00:47→08:12)
[2020-02-28] MEDS: BENZONATATE 100 MG (TESSALON) CAPSULE PO PRN ×3 (02:05→19:54)
[2020-02-28 04:00] VITALS: BP 133/82
[2020-02-28 06:02] LABS: HEMOGLOBIN 8.4 g/dL (13.3-17.7); MEAN PLATELET VOLUME 8.7 fL (9.0-12.2); WHITE BLOOD COUNT 8.1 10^3/uL (4.3-11.0)
[2020-02-28 06:16] LABS: BUN/CREATININE RATIO 27; CALCIUM 8.8 MG/DL (8.5-10.1); CARBON DIOXIDE 25 MMOL/L (21-32); CHLORIDE 98 MMOL/L (98-107); CREATININE SERUM 0.59 MG/DL (0.60-1.30); GFR ESTIMATED > 60; GLUCOSE 103 MG/DL (70-105); SODIUM 130 MMOL/L (135-145)
[2020-02-28 08:00] VITALS: BP 142/89
--- NOTE | 2020-02-28 10:25 | Physical Therapy Evaluation ---
PT Evaluation-General Medical Diagnosis Admission Date Feb 27, 2020 at 11:20 Medical Diagnosis: UTI/weakness/anemia Onset Date: Feb 27, 2020 Therapy Diagnosis Therapy Diagnosis: generalized weakness/debility Precautions Precautions/Isolations: Fall Prevention, Pressure Ulcer Referral Physician: Marge Reason for Referral: Evaluation/Treatment Medical History Pertinent Medical History: HTN, Lymphoma Additional Medical History (+) Covid 05/2019 Current History ER secondary to bilateral LE edema and abdominal distention x months Reviewed History: Yes Social History Home: Single Level Current Living Status: Spouse Prior Prior Level of Function SCALE: Activities may be completed with or without assistive devices. 5-Iddsqnwnwe-rhqwwzh completes the activity by him/herself with no assistance from a helper. 5-Set-up or Clean-up Assistance-helper sets up or cleans up; patient completes activity. [place] assists only prior to or following the activity. 4-Supervision or Touching Assistance-helper provides verbal cues and/or touching/steadying and/or contact guard assistance as patient completes activity. Assistance may be provided throughout the activity or intermittently. 3-Partial/Moderate Assistance-helper does LESS THAN HALF the effort. [place] lifts, holds or supports trunk or limbs, but provides less than half the effort. 2-Substantial/Maximal Assistance-helper does MORE THAN HALF the effort. [place] lifts or holds trunk or limbs and provides more than half the effort. 9-Lfyewlufn-yzvbcm does ALL the effort. Patient does none of the effort to complete the activity. Or, the assistance of 2 or more helpers is required for the patient to complete the activity. If activity was not attempted, code reason: 7-Patient Refused. 9-Not Applicable-not attempted and the patient did not perform the activity before the current illness, exacerbation or injury. 10-Not Attempted due to Environmental Limitations-(lack of equipment, weather restraints, etc.). 88-Not Attempted due to Medical Conditions or Safety Concerns. Bed Mobility: 6 Transfers (B,C,W/C): 6 Gait: 6 Stairs: 6 Indoor Mobility (Ambulation): Independent Stairs: Independent Prior Devices Use: None PT Evaluation-Current Subjective Patient had just completed shower and agrees to PT. PT assist to dress lower body and socks. Objective Patient Orientation: Normal For Age Attachments: Central Line ROM/Strength ROM Lower Extremities bilateral LE WFL ( noted edema) Strength Lower Extremities 3/5 grossly bilateral LE Integumentary/Posture Integumentary refer to nursing notes Bowel Incontinence: No Bladder Incontinence: No Posture WFL Neuromuscular (Tone, Coordination, Reflexes) grossly intact Sensory Vision: Functional Hearing: Functional Transfers Sit to Lying (QC): 5 Lying to Sitting/Side of Bed(Q: 5 Sit to Stand (QC): 4 Gait Does the Patient Walk?: Yes Mode of Locomotion: Walk Anticipated Mode of Locomotion: Walk Walk 10 feet (QC): 4 Walk 50 ft with 2 Turns(QC): 4 Walk 150 ft (QC): 4 Distance: 400' Gait Assistive Device: FWW Comments/Gait Description slow, steady SBA for safety Balance Sitting Static: Normal Sitting Dynamic: Normal Standing Static: Normal Standing Dynamic: Normal Assessment/Needs 64 y.o. 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 Rehab Potential: Fair PT Care Home Goals Care Home Goals PT Field Service Analyst Goals Time Frame: Mar 10, 2020 Roll Left & Right (QC): 6 Sit to Lying (QC): 6 Lying-Sitting on Side/Bed(QC): 6 Sit to Stand (QC): 6 Chair/Uce-gm-Etniy Xfer(QC): 6 Toilet Transfer (QC): 6 Car Transfer (QC): 6 Does the Patient Walk: Yes Walk 10 feet (QC): 6 Walk 50ft with 2 Turns (QC): 6 Walk 150 ft (QC): 6 1 Step (curb) (QC): 6 4 Steps (QC): 6 PT Plan Problem List Problem List: Activity Tolerance, Functional Strength, Transfer Treatment/Plan Treatment Plan: Continue Plan of Care Treatment Plan: Bed Mobility, Education, Functional Activity Rosina, Functional Strength, Gait, Safety, Therapeutic Exercise, Transfers Treatment Duration: Mar 10, 2020 Frequency: 6 times per week Estimated Hrs Per Day: .25 hour per day Patient and/or Family Agrees t: Yes Discharge Recommendations Therapy Discharge Recommendati: Home & Family Time/GCodes Time In: 945 Time Out: 1005 Total Billed Treatment Time: 20 Total Billed Treatment 1 visit EVModC 20 min CADE ROCK PT Feb 28, 2020 10:24
[2020-02-28] MEDS ORDERED: POLY17PO6 PO (10:46)
[2020-02-28] MEDS ORDERED: DOCU-143 PO (10:46)
[2020-02-28] MEDS ORDERED: TMSL.4C PO (10:46)
[2020-02-28] MEDS ORDERED: MULT-228 PO (10:46)
--- NOTE | 2020-02-28 10:49 | NUR ---
SPOKE WITH THE PT AND WENT THRU THE EXT MED HISTORY TO COMPLETE THE MED REC ACCORDING TO THE PT HE ONLY TAKES PRESCRIPTION MEDICATIONS NEEDED (PANTOPRAZOLE AND TAMSULOSIN). THE EXT MED HISTORY SHOWS ELIQUIS FROM DR. DU BUT THE PT SAYS HE WAS TAKEN OFF OF IT DUE TO BLEEDING OTC MEDS: LARRY CHEW [employer] COLACE- ONLY TAKES COLACE AND MIRALAX WHEN HE HAS TO TAKE PRESCRIPTION PAIN MEDS BUT INDICATES HE DOES NOT CURRENTLY TAKE ANYTHING FOR PAIN MIRALAX
[2020-02-28 11:12] VITALS: BP 132/82
[2020-02-28] MEDS: cefTRIAXone FOR IV USE 1,000 MG in WATER (STERILE) FOR INJECTION 10 ML IV SCH (12:04)
[2020-02-28] MEDS: CHLORASEPTIC LOZENGE MM PRN ×3 (12:41→21:43)
[2020-02-28] MEDS ORDERED: guaiFENesin/DM (ROBITUSSIN DM) 10 ML UDC PO PRN (12:45)
[2020-02-28] MEDS ORDERED: PANTOPRAZOLE 40 MG (PROTONIX) TAB PO PRN (14:15)
[2020-02-28] MEDS ORDERED: DOCUSATE SODIUM 100 MG (COLACE) CAP PO PRN (14:15)
[2020-02-28] MEDS ORDERED: polyethylene glycoL POWDER 17 GM (MIRALAX) PACK PO PRN (14:15)
[2020-02-28] MEDS ORDERED: TAMSULOSIN 0.4 MG (FLOMAX) CAP PO PRN (14:15)
--- NOTE | 2020-02-28 14:20 | Progress Note - Hospitalist ---
Subjective HPI/CC On Admission Date Seen by Provider: Feb 28, 2020 Time Seen by Provider: 14:12 Pt is a 64yoCM with a PMH of Hodgkin Lymphoma who presented to the ER due to 6-7 days history of weakness, nausea, and poor appetite. He was diagnosed with Hodgkin Lymphoma roughly one year ago and completely chemotherapy and did well with it and has been in remission per patient. He saw Dr Fallon a couple of weeks ago and was feeling very well then too but progressively over the last few days noticed a steady decline. He was unable to get up and walk or even dress himself. He also has leg swelling that has been present "forever" per patient. When asked to clarify further he states it started around the time he had chemo. He did have two inguinal node biopsies this spring but he does not feel like it was related that that. He only two current concerns are that he is hungry and that he worried this is his cancer returning. Subjective/Events-last exam Pt reports doing better today. Has a dry cough that has been present for 2 months. Requesting cough drop. Focused Exam Lactate Level 02/27/20 19:10: Lactic Acid Level 3.04*H 02/27/20 21:40: Lactic Acid Level 2.39*H 02/27/20 23:40: Lactic Acid Level 2.00 Objective Exam Vital Signs Vital Signs Date Time Temp Pulse Resp B/P (MAP) Pulse Ox O2 Delivery O2 Flow Rate FiO2 02/28/20 11:12 36.2 115 20 132/82 (99) 96 Room Air Capillary Refill : Less Than 3 SecondsLess Than 3 Seconds General Appearance: No Apparent Distress, Chronically ill, Thin Respiratory: Lungs Clear, No Accessory Muscle Use, No Respiratory Distress Cardiovascular: No Murmur, Tachycardia Gastrointestinal: Normal Bowel Sounds, Non Tender, Soft Extremity: Swelling (2-3+ bilateral LE) Neurologic/Psychiatric: Alert, Oriented x3 Results/Procedures Lab Laboratory Tests 02/28/20 05:50 Patient resulted labs reviewed. Imaging: Reviewed Imaging Report Assessment/Plan Assessment and Plan Assess & Plan/Chief Complaint UTI Dehydration with lactic acidosis Continue on abx Await cultures (previous urine cultures show no growth) Rapid COVID negative, PCR negative, Antibody ordered DC IVF today as eating better PT/OT tachycardia History of DVT Has been off Eliquis for a few months Will get CTA chest to rule out PE Echo ordered Hodgkin Lymphoma Follows with Dr Cloud who is consulted, appreciate recs Patient is concerned about recurrence Discussed with Dr Cloud and will do staging scan for his lymphoma as well with CTA as above DVT ppx: Lovenox Clinical Quality Measures DVT/VTE Risk/Contraindication: Risk Factor Score Per Nursin RFS Level Per Nursing on Admit: 4+=Very High SHYLA PENDLETON MD Feb 28, 2020 14:20
[2020-02-28] MEDS ORDERED: HOLD METFORMIN - RECEIVED CONTRAST 20 ML VIAL IV SCH (15:45)
[2020-02-28] MEDS ORDERED: IOHEXOL 350 MG/ML 100 ML (OMNIPAQUE 350) VIAL IV ONE (15:45)
[2020-02-28] MEDS ORDERED: NS 100 ML (IVPB) BAG IV ONE (15:45)
[2020-02-28 16:00] VITALS: BP 143/78
--- NOTE | 2020-02-28 17:18 | Diagnostic Imaging Report ---
EXAMINATION: CT angiography chest with and without CT abdomen & pelvis with and without. TECHNIQUE: Noncontrast enhanced helical images were obtained through the chest, abdomen and pelvis. Contrast enhanced thin section helical images were obtained through the chest, abdomen and pelvis with intravenous contrast timed for the optimal opacification of the arterial structures per departmental CTA protocol. Post-processing, retro reconstructions and interpretation of angiographic images of the vessels was performed. 3D MIP reconstructions were performed and reviewed. All CT scans use one or more of the following dose optimizing techniques: automated exposure control, MA and/or KvP adjustment based on a patient size and exam type, or iterative reconstruction. HISTORY: Lymphoma, cough. COMPARISON: PET/CT dated 10/25/2019. FINDINGS: There is no pulmonary embolism. There are patchy areas of groundglass in the lungs with a small left and tiny right pleural effusion with overlying atelectasis. No pneumothorax is seen. A right axillary lymph node measures 17 mm, previously 5 mm. Left supraclavicular lymph node measures 14 mm, previously 5 mm. There are also enlarged right supraclavicular lymph nodes. Right upper paratracheal lymph node measuring 19 mm, previously measured 8 mm. There is bulky bilateral hilar lymphadenopathy which is new from prior exam. Right hilar lymph nodes measure up to 21 mm. Left hilar lymph nodes measure up to 21 mm. Subcarinal lymph node measures 35 mm. Heart size is normal. There are mild coronary artery calcifications. No pericardial effusion. Aorta is normal in caliber. Left port catheter tip terminates in the superior vena cava. There are numerous low attenuating nodules throughout the liver which are new from prior exam. There are greater than 50 nodules. They are present in all lobes. They measure up to 15 mm. There is a pseudocirrhotic appearance to the surface of the liver. There is no biliary ductal dilation. Gallbladder is normal. Pancreas is normal. There are masses throughout the spleen which are new from prior exam. The largest is a 5.5 cm mass in the upper aspect. There is a new 12 mm left adrenal nodule. Right adrenal gland is normal. Large stones present in the kidneys with unchanged parapelvic stranding about the right kidney. There is a 2.3 x 1.5 cm right renal pelvic stone. There are other nonobstructing stones present bilaterally. There are no suspicious renal lesions. There is no hydronephrosis. Urinary bladder is normal. Visualized bowel is normal in caliber without obstruction or inflammation. There is a moderate amount of ascites. No free air. There is extensive lymphadenopathy in the abdomen and pelvis. Retroperitoneal lymphadenopathy is new from prior exam with lymph nodes measuring up to 3.0 cm. There is left internal and external iliac lymph node adenopathy measuring up to 3.9 cm, previously 2.5 cm. There is left inguinal lymphadenopathy. There is periportal lymphadenopathy and enlarged mesenteric nodes with diffuse mesenteric stranding. There is diffuse body wall edema. Aorta is normal in caliber without aneurysm. There are no suspicious osseous lesions. IMPRESSION: 1. No pulmonary embolism. 2. Extensive lymphadenopathy in the chest, abdomen and pelvis consistent with history of lymphoma. 3. There are also new extensive liver lesions, splenic lesions, left adrenal lesion and vague nodules in the lungs also concerning for lymphomatous involvement. Dictated by: Dictated on workstation # [id number]
[2020-02-28 19:51] VITALS: BP 126/81
[2020-02-28] MEDS: ENOXAPARIN 40 MG/0.4 ML (LOVENOX) SYR SQ SCH (19:54)
[2020-02-28 23:48] VITALS: BP 136/86
[2020-02-29 04:31] VITALS: BP 128/81
[2020-02-29] MEDS ORDERED: MULTIVIT W/MINERALS TAB (THERAGRAN M) PO SCH (07:00)
[2020-02-29 08:00] VITALS: BP 130/80
[2020-02-29] MEDS: cefTRIAXone FOR IV USE 1,000 MG in WATER (STERILE) FOR INJECTION 10 ML IV SCH (11:32)
--- NOTE | 2020-02-29 11:33 | Progress Note - Hospitalist ---
Subjective HPI/CC On Admission Date Seen by Provider: Feb 29, 2020 Time Seen by Provider: 11:28 Pt is a 64yoCM with a PMH of Hodgkin Lymphoma who presented to the ER due to 6-7 days history of weakness, nausea, and poor appetite. He was diagnosed with Hodgkin Lymphoma roughly one year ago and completely chemotherapy and did well with it and has been in remission per patient. He saw Dr Fallon a couple of weeks ago and was feeling very well then too but progressively over the last few days noticed a steady decline. He was unable to get up and walk or even dress himself. He also has leg swelling that has been present "forever" per patient. When asked to clarify further he states it started around the time he had chemo. He did have two inguinal node biopsies this spring but he does not feel like it was related that that. He only two current concerns are that he is hungry and that he worried this is his cancer returning. Subjective/Events-last exam Pt reports persistent cough but has improved with BBQ potato chips. Discussed that there are spots on his CT Chest that concerns me for recurrent lymphoma. He states this is what he has been worried about. Focused Exam Lactate Level 02/27/20 19:10: Lactic Acid Level 3.04*H 02/27/20 21:40: Lactic Acid Level 2.39*H 02/27/20 23:40: Lactic Acid Level 2.00 Objective Exam Vital Signs Vital Signs Date Time Temp Pulse Resp B/P (MAP) Pulse Ox O2 Delivery O2 Flow Rate FiO2 02/29/20 08:00 Room Air 02/29/20 04:31 36.5 104 20 128/81 (97) 95 Capillary Refill : Less Than 3 SecondsLess Than 3 Seconds General Appearance: No Apparent Distress, Chronically ill Respiratory: Lungs Clear, No Accessory Muscle Use, No Respiratory Distress Cardiovascular: Regular Rate, Rhythm, No Murmur Gastrointestinal: Normal Bowel Sounds, Non Tender, Soft Neurologic/Psychiatric: Alert, Oriented x3 Results/Procedures Lab Patient resulted labs reviewed. Imaging: Reviewed Imaging Report Assessment/Plan Assessment and Plan Assess & Plan/Chief Complaint UTI Dehydration with lactic acidosis Continue on abx Urine culture with no growth Rapid COVID negative, PCR negative, Antibody negative DC IVF today as eating better PT/OT Hodgkin Lymphoma Follows with Dr Cloud who is consulted, appreciate recs Patient is concerned about recurrence and imaging consistent with recurrence Dr Cloud to see patient today to discuss plan tachycardia- improved to low 100s History of DVT Has been off Eliquis for a few months CTA negative for PE Echo with preserved EF DVT ppx: Lovenox Clinical Quality Measures DVT/VTE Risk/Contraindication: Risk Factor Score Per Nursin RFS Level Per Nursing on Admit: 4+=Very High SHYLA PENDLETON MD Feb 29, 2020 11:33
[2020-02-29 12:00] VITALS: BP 130/84
--- NOTE | 2020-02-29 13:29 | NUR ---
RD ASSESSMENT PMHx: HTN; lymphoma; PT INTERACTION: Pt was awake and pleasant during nutrition assessment. Pt states current appetite is poor, and has been this way since admit. Note pt currently on Regular diet, and avg PO intake 63% x1d, per chart review. Pt states following a regular diet at home, and has no issues with chewing/swallowing food. Pt states no recent issues with nausea, vomiting, constipation, or diarrhea. Note last BM was 02/28, and pt currently on bowel regimen of colace PRN, and miralax PRN, per chart review. Pt states going from "245# on 05/01/19 down to 160#" (pt didn't say when he weighed 160#). Note recent 20# wt loss x8mon, per chart review. ABNORMAL NUTRITION-RELATED LAB VALUES LOW: Na 130; cr 0.59; HIGH: Est. kcal needs: 4413-9103 kcal | 20-25 kcal/kg Est. Pro needs: 66-82 g Pro | 0.8-1.0 g Pro/kg PES STATEMENT: Inadequate oral intake (NI-2.1) related to loss of appetite, as evidenced by pt interview, and avg PO intake 63% x1d. INTERVENTION: Continue with current diet order of Regular diet. Pt may benefit from nutrition supplementation if PO intake declines. Will continue to follow and reassess as pt needs, intake, and status change. Anthony TORRES, MS RD LD [phone] cell
--- NOTE | 2020-02-29 14:18 | Discharge Inst-Simple/Standard ---
Discharge Inst-Standard Discharge Medications New, Converted or Re-Newed RX: Transmitted to Pharmacy Patient Instructions/Follow Up Plan of Care/Instructions/FU: Please continue to take your medications as written. Please follow up with a primary care doctor to follow up this hospital stay. Please follow up with Dr Cloud as scheduled to continue evaluation and treatment of your lymphoma. Please continue to wear a mask in public to help decrease your risk of dexter COVID. Activity as Tolerated: Yes Discharge Diet: No Restrictions Return to The Hospital For: Chest pain, fever, shortness of breath, weaknes, confusion. if you feel you are getting worse. SHYLA PENDLETON MD Feb 29, 2020 14:18
[2020-02-29] MEDS ORDERED: CEPH-507 PO (14:20)
--- NOTE | 2020-02-29 14:42 | Discharge Summary ---
Diagnosis/Chief Complaint Date of Admission Feb 27, 2020 at 11:20 Date of Discharge Discharge Date: Feb 29, 2020 Admission Diagnosis UTI Primary Care Chauncey Sagastume MD Discharge Summary Discharge Physical Exam Allergies: Coded Allergies: No Known Drug Allergies (Unverified , 04/19/19) Vitals & I&Os Vital Signs Date Time Temp Pulse Resp B/P (MAP) Pulse Ox O2 Delivery O2 Flow Rate FiO2 02/29/20 16:35 36.1 110 20 130/84 92 Room Air General Appearance: No Apparent Distress, Chronically ill Cardiovascular: Regular Rate, Rhythm, No Murmur Neurologic/Psychiatric: Alert, Oriented x3 Hospital Course Pt was admitted due to generalized weakness and UTI. He was treated with IV abx and PT/OT was consulted. His weakness improved but he had a persistent cough. COVID testing was negative. CT of his Chest was negative for a PE but showed progression of his known Hodgkin Lymphoma. Oncology was consulted and recommended outpatient PET scan for further staging. He was discharged home at his request to complete antibiotics and follow up with Dr Cloud and with a primary care doctor. Labs (last 24 hrs) Microbiology 02/27/20 Blood Culture - Preliminary, Resulted No growth 02/27/20 Urine Culture - Final, Complete NO GROWTH Patient resulted labs reviewed. Imaging: Reviewed Imaging Report Discussion & Recommendations Discharge Planning: >30 minutes discharge planning Discharge Home Medications: Active Scripts Active Keflex (Cephalexin) 500 Mg Capsule 500 Mg PO BID Reported Miralax (Polyethylene Glycol 3350) 17 Gm Powd.pack 17 Gm PO DAILY PRN USES ONLY IF TAKING PAIN MEDICATIONS Colace (Docusate Sodium) 100 Mg Capsule 200 Mg PO DAILY PRN USES ONLY IF TAKING PAIN MEDICATIONS Flintstones (Multivitamin) 1 Each Tab.chew 2 Each PO DAILY Flomax (Tamsulosin HCl) 0.4 Mg Cap 0.4 Mg PO DAILY PRN Pantoprazole Sodium 40 Mg Tablet.dr 40 Mg PO DAILY PRN Instructions to patient/family Please see electronic discharge instructions given to patient. Clinical Quality Measures DVT/VTE Risk/Contraindication: Risk Factor Score Per Nursin RFS Level Per Nursing on Admit: 4+=Very High SHYLA PENDLETON MD Feb 29, 2020 14:42
--- NOTE | 2020-02-29 14:45 | NUR ---
Pt was given PET scan instructions scheduled for Mar 06. Pt pleased with plan to be discharged and followed by Dr[facility]. will be providing him transportation home. No other needs identified.
[2020-02-29 16:35] VITALS: BP 130/84
--- NOTE | 2020-02-29 18:47 | CONSULTATION REPORT ---
DATE OF SERVICE: 02/29/2020 The patient is admitted to room 415. PHYSICIAN REQUESTING CONSULTATION: Josey Bird MD. IMPRESSION: 1. A 64-year-old male admitted to the hospital with worsening shortness of breath and cough. 2. COVID rapid screen as well as antibody testing negative. 3. 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 Status post chemotherapy with ABVD regimen x2 cycles with near complete response followed by AVD regimen x4 cycles completing all treatments by 09/29/2019. 4. CT angiogram done at the time of admission showed evidence of new lymphadenopathy as well as spleen and liver lesions clinically suspicious for recurrent Hodgkin's disease. Echocardiogram done at the time of admission showed normal systolic function. RECOMMENDATIONS: 1. We will schedule the patient for a repeat PET/CT scan on an outpatient basis early next week. 2. Based on the results, he will need a repeat biopsy of an easily accessible lymph node to confirm the diagnosis. 3. If the biopsy proves that this is recurrent Hodgkin's disease, I will refer him to a tertiary center for evaluation of high-dose chemotherapy with allotransplant after second line induction chemotherapy. 4. Once no other biopsy date, I will see the patient few days later to review the results and make rest of the arrangements. 5. Continue rest of medical management as you are doing and okay to discharge when stable. BRIEF HISTORY: The patient is a 64-year-old male, who came to the emergency room with worsening shortness of breath and cough for one to two months. He denied any fevers, but has increasing fatigue. He was evaluated in the emergency room with a rapid COVID test, which was negative. He was admitted to the hospital for further management because of mild hypoxemia. Since admission, he had a CT angiogram done to rule out PE, which showed evidence of bulky lymphadenopathy in the mediastinum and abdomen as well as new lesions in the liver and spleen, which was not present in the previous scans. This raised the possibility of recurrent Hodgkin's disease. Oncology consultation was requested for concurrent care. The patient also had an echocardiogram done because of edema along with the shortness of breath. This was reported as unremarkable with normal systolic function and ejection fraction. 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 He also had a left lower extremity DVT in early 2019 at the time of diagnosis of the Hodgkin's lymphoma. Denied any other major medical problems. SOCIAL HISTORY: The patient is and lives in [place]. 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 No history of tobacco, alcohol or recreational drug use. FAMILY HISTORY: Only significant for his daughter, who was diagnosed with metastatic melanoma at a younger age and is undergoing treatment. Rest of the family history is unremarkable. PHYSICAL EXAMINATION: GENERAL: Today showed an elderly male, weak appearing, awake and oriented, in mild discomfort because of shortness of breath. VITAL SIGNS: His temperature was 36.1, pulse rate of 110, respirations 20 and blood pressure 130/84 with oxygen saturation of 92% on room air. HEENT: Normocephalic with male pattern baldness, extraocular muscles intact, conjunctivae slightly pale and oral mucosa moist. NECK: Supple with no JVD. Small lymph nodes palpable in the lower cervical and axillary areas. CHEST: Symmetrical with an implanted port. LUNGS: Fairly clear to auscultation without wheezes or rales. CARDIOVASCULAR: Tachycardic, regular with no murmurs or gallops heard. ABDOMEN: Slightly distended, soft and nontender with no definite hepatosplenomegaly or other masses palpable. EXTREMITIES: Showed 1+ edema around the ankles. NEUROLOGIC: Grossly intact without focal motor deficits. LABORATORY DATA: CBC done today showed WBC 8.1, hemoglobin 8.4 and platelet count 229,000. BMP showed normal electrolytes except sodium level of 130. BUN was 16 and creatinine 0.59 with GFR more than 60 mL per minute. His COVID-19 rapid test as well as the PCR was negative and the antibodies were negative as well. Echocardiogram done on 02/28/2020 showed normal cavity size and wall thickness. Systolic function was normal with estimated ejection fraction of 65% to 70%. No regional wall motion abnormalities identified. Doppler parameters consistent with abnormal left ventricular relaxation (grade I diastolic dysfunction). Systolic pulmonary artery pressure was in the range of [address] angiogram of the chest done on 02/28/2020 showed no evidence of pulmonary embolism. There is extensive lymphadenopathy in the chest, abdomen and pelvis consistent with history of lymphoma. New extensive liver lesions, splenic lesions, left adrenal lesion and weak nodules in the lungs concerning for lymphomatous involvement. Thank you for allowing me to participate in this patient's care. I will follow the patient with you. Job ID: [id number] DocumentID: [id number] Dictated Date: 02/29/2020 15:08:11 Brass Finisher Date: 02/29/2020 18:47:19 Dictated By: ELIDA HENDRIX MD
== END 2020-02-29 16:35 | disposition home or self-care (01) | DRG 690 ==
LOC: EDUNIT# 08:36 → ER 08:39 → 4TH 11:20
PROVIDERS: ADMIT Family Medicine; ATTEND Family Medicine
DX: N39.0 Urinary tract infection, site not specified (principal); E87.2 Acidosis; C81.90 Hodgkin lymphoma, unspecified, unspecified site; Z20.828 Contact with and (suspected) exposure to other viral communicable diseases; E86.0 Dehydration; R00.0 Tachycardia, unspecified; I10 Essential (primary) hypertension; D64.9 Anemia, unspecified; Z86.718 Personal history of other venous thrombosis and embolism; Z92.21 Personal history of antineoplastic chemotherapy
CPT/HCPCS: 36415; 71045; 71275; 74177; 80048; 80053; 81000; 83605; 83735; 83880; 85007; 85027; 85610; 85730; 86141; 86769; 87040; 87088; 87635; 93005; 93041; 93306

== ENCOUNTER → 2020-03-06 | Outpatient (CLI) | payer OTHER ==
[~2020-03-06] MED LIST changes: +CEPH-507 PO; +DOCU-143 PO; +MULT-228 PO; +PANT40TA52 PO; +POLY17PO6 PO
--- NOTE | 2020-03-07 09:49 | Diagnostic Imaging Report ---
INDICATION: Hodgkin's lymphoma, restaging. TECHNIQUE: Serum blood glucose level at the time of injection is 114 mg/dL. Patient was administered 15.0 mCi F-18 FDG intravenously in the left antecubital location and PET imaging was performed from the top of the skull to mid thighs. Noncontrast CT was also performed for attenuation correction and anatomic correlation. COMPARISON: Correlation is made with prior PET/CT study from 10/25/[address] chest, abdomen, and pelvis study from 02/28/2020. FINDINGS: Bilateral pleural effusions are noted, left greater. There is also moderate amount of abdominal and pelvic ascites. There is subcutaneous edema throughout the chest and abdomen, consistent with anasarca. Patient does have nonobstructing calculi involving both kidneys, largest in the right renal pelvis measuring 2.7 cm x 1.7 cm. Symmetric activity throughout the brain is noted. Continued adverse appearance is seen when compared with exam from September. There are now innumerable hypermetabolic yvonne masses involving bilateral cervical chains and prevertebral tissues as well as supraclavicular regions bilaterally. There is right axillary as well as mediastinal and hilar hypermetabolic lymph nodes. There is bulky central retroperitoneal hypermetabolic lymphadenopathy as well as bulky left iliac as well as right iliac chain lymphadenopathy which is hypermetabolic. Hypermetabolic lymph nodes in the inguinal regions bilaterally are seen. There are numerous osseous hypermetabolic lesions. The liver is markedly heterogeneous and may contain multiple lesions as well. IMPRESSION: 1. Worsening hypermetabolic lymphadenopathy in the neck, chest, abdomen, and pelvis. There are also increasing osseous lesions. Patient has developed bilateral pleural effusions as well as large-volume abdominal and pelvic ascites. Dictated by: Dictated on workstation # [id number]
== END ==
LOC: RAD 13:18
PROVIDERS: ATTEND Internal Medicine Hematology & Oncology
DX: C81.18 Nodular sclerosis Hodgkin lymphoma, lymph nodes of multiple sites (principal)
CPT/HCPCS: 78815; A9552

== ENCOUNTER 2020-03-08 08:02 | Day surgery (SDC) | payer OTHER ==
--- NOTE | 2020-03-07 17:08 | HISTORY AND PHYSICAL ---
DATE OF SERVICE: DATE OF ADMISSION: 03/08/2020. ATTENDING PRIMARY CARE PHYSICIAN: Dr. Chauncey Sagastume. HISTORY: The patient is a 64-year-old male who was referred over to us initially in 05/2019 for a left inguinal lymph node biopsy. He had reported shortness of breath as well as a cough and was seen with urgent care and was diagnosed with pneumonia and started on antibiotics. He also developed a left thigh swelling and found to have a left lower extremity DVT and was started on Eliquis. An x-ray was performed, which did show bilateral hilar prominence and a CT scan of the abdomen and pelvis did show lymphadenopathy of the inferior mediastinum, central retroperitoneum, left periaortic and aortocaval regions as well as a smaller lymph node in the left inguinal region. This was biopsied on 05/04/2019 and consistent with a lymphoma. He was given chemotherapy; however, has had significant swelling in the neck, axillary region as well as supracervical region. Recent CT scan as well as PET scan has shown a bulky recurrent disease. He also was found to have significant ascites. We will proceed with cervical lymph node biopsy as well as a paracentesis. PAST MEDICAL HISTORY: Hypertension, history of lower extremity DVT and lymphoma. PAST SURGICAL HISTORY: Umbilical hernia repair 08/2016 and placement of a Groshong catheter 05/04/2019. ALLERGIES: CODEINE. MEDICATIONS: Eliquis b.i.d. SOCIAL HISTORY: Negative for smoke and negative for alcohol. FAMILY HISTORY: Mother, history of DVT. Father, hypertension and pancreatic cancer. REVIEW OF SYSTEMS: A well-nourished male currently in no acute distress. He is experiencing some mild shortness of breath. No cough or sputum production. No chest pain, palpitations or diaphoresis. No nausea, vomiting, no diarrhea or constipation. No red blood per rectum, no dark tarry stools. No fever, chills, no recent inadvertent weight loss. All other review of systems negative. PHYSICAL EXAMINATION: VITAL SIGNS: Stable, afebrile. CHEST: Scattered rales bilaterally. HEART: Regular, no murmurs. EXTREMITIES: +1/3 bilateral lower extremity edema, negative Homans sign. LYMPH NODES: There is bilateral bulky cervical lymph nodes as well as supraclavicular enlarged lymph nodes. ABDOMEN: Distended with a positive fluid shift wave, no peritoneal signs. SKIN: Warm and dry. ASSESSMENT AND PLAN: A 64-year-old male with recurrent bulky disease lymphoma. He will require an urgent lymph node biopsy to tailor chemotherapeutic regimen as soon as possible as well as a therapeutic paracentesis, which we will schedule for tomorrow. Job ID: [id number] DocumentID: [id number] Dictated Date: 03/07/2020 15:42:56 Cover Assembler Date: 03/07/2020 16:03:29 Dictated By: MANJINDER YOU MD
[~2020-03-08] VITALS: Ht 177 cm; Wt 81.8 kg
[2020-03-08] VITALS (12 sets, daily range): BP systolic 108–137; BP diastolic 73–92
[2020-03-08] MEDS ORDERED: LIDOCAINE/EPI 1%-1:100,000 (XYLOCAINE) 50 ML ONE (08:32)
--- NOTE | 2020-03-08 08:42 | Progress Note-Pre Operative ---
Pre-Operative Progress Note H&P Reviewed The H&P was reviewed, patient examined and no changes noted. Date Seen by Provider: Mar 08, 2020 Time Seen by Provider: 08:40 Date H&P Reviewed: Mar 08, 2020 Time H&P Reviewed: 08:30 Pre-Operative Diagnosis: Metastatic lymphoma and ascites JYOTHI PEREZ APRN Mar 08, 2020 08:42
[2020-03-08] MEDS ORDERED: HYDR-4227 PO (08:44)
[2020-03-08] MEDS ORDERED: morphine INJ 10 MG/ML 1ML (SYR OR VIAL) IVP PRN (08:45)
[2020-03-08] MEDS ORDERED: LACTATED RINGERS 1,000 ML IV PRN (08:45)
[2020-03-08] MEDS ORDERED: ceFAZolin 2 GM IV Premixed 50 ML IV ONE (08:45)
[2020-03-08] MEDS ORDERED: HYDROcodone/APAP 5 MG/325 MG (LORTAB) TAB PO ONE (08:45)
[2020-03-08] MEDS ORDERED: ONDANSETRON 4 MG/2 ML (SDV) Z0FRAN IVP PRN ×2 (08:45→11:15)
[2020-03-08] MEDS ORDERED: ACETAMINOPHEN 325 MG TABLET PO PRN (08:45)
--- NOTE | 2020-03-08 08:45 | Discharge Inst-Surgical ---
D/C Lap Instructions-KIDO Reconcile Patient Problems Problems Reviewed?: Yes New, Converted, or Re-Newed RX: RX on Chart Follow Up Appt in 2 weeks Activity as tolerated No driving for 24 hours No driving while on pain medications Incentive Spirometry use every 2 hours while awake Regular Diet Symptoms to Report: Fever over 101 degree F, Nausea/Vomiting Infection Signs and Symptoms to report: Increased redness, Foul odor of wound, Increased drainage Bathing instructions: May shower Operative Area Clean/Dry; Keep incision clean/dry If any problems/questions: Contact your physician or go to Emergency Room JYOTHI PEREZ APRN Mar 08, 2020 08:45
--- NOTE | 2020-03-08 09:44 | Diagnostic Imaging Report ---
IMPRESSION: Cancelled Dictated by: Dictated on workstation # [id number]
--- NOTE | 2020-03-08 10:42 | Progress Note-Post Operative ---
Post-Operative Progess Note Surgeon (s)/Insole Filler (s) Surgeon MANJINDER YOU MD Insole Filler: indra greco IMPROVEMENT DIRECTOR Pre-Operative Diagnosis Metastatic lymphoma and ascites Post-Operative Diagnosis same Procedure & Operative Findings Date of Procedure 03/08/20 Procedure Performed/Findings paracentesis, left deep cervical lymph node bx x2. Anesthesia Type general LMA with local Estimated Blood Loss Estimated blood loss (mL): minimal Specimens/Packing Specimens Removed left deep cervical LN x2, ascites fluid. MANJINDER YOU MD Mar 08, 2020 10:42
--- NOTE | 2020-03-08 11:03 | Anesthesia-General Post-Op ---
General Patient Condition Mental Status/LOC: Same as Preop Cardiovascular: Satisfactory Nausea/Vomiting: Absent Respiratory: Satisfactory Pain: Controlled Complications: Absent Post Op Complications Complications None Follow Up Care/Instructions Patient Instructions None needed. Anesthesia/Patient Condition Patient Condition Patient is doing well, no complaints, stable vital signs, no apparent adverse anesthesia problems. No complications reported per nursing. MAVIS GONZALEZ CRNA Mar 08, 2020 11:03
[2020-03-08] MEDS ORDERED: fentaNYL INJECTION 100 MCG/2 ML AMP IVP ONE (11:15)
--- NOTE | 2020-03-08 14:39 | Diagnostic Imaging Report ---
INDICATION: Ascites. Sonographic interrogation of all 4 quadrants of the abdomen was performed. There is a large abdominal ascites. Marking was provided in the right lower quadrant for performance of paracentesis by Dr. Peña. IMPRESSION: Large volume ascites. Marking was provided for paracentesis. Dictated by: Dictated on workstation # [id number]
--- NOTE | 2020-03-08 15:18 | OPERATIVE REPORT ---
DATE OF SERVICE: 03/08/2020 ATTENDING PRIMARY CARE PHYSICIAN: Dr. Chauncey Sagastume. PREOPERATIVE DIAGNOSES: Recurrent metastatic lymphoma and symptomatic ascites. POSTPROCEDURE DIAGNOSES: Recurrent metastatic lymphoma and symptomatic ascites. PROCEDURES PERFORMED: Left deep cervical lymph node biopsy x2 and paracentesis. SURGEON: Doris Peña MD. LABORATORY TECHNICAL SPECIALIST: Lorenzo Harrington APRN. ANESTHESIA: General laryngeal mask airway with local. ESTIMATED BLOOD LOSS: Minimal. FINDINGS: A large matted deep cervical lymph nodes. A straw yellow transudative fluid from the peritoneal cavity. DISPOSITION: The patient tolerated the procedure well. INDICATIONS FOR PROCEDURE: The patient is a 64-year-old male, who was initially referred over to us in 05/2019 for a left inguinal node biopsy. He had reported shortness of breath as well as a cough and was seen in urgent care and was diagnosed with pneumonia, started on antibiotics. He then developed left thigh swelling and was found to have a left lower extremity DVT and was started on Eliquis. An x-ray was performed, which did show bilateral hilar prominence and a CT scan of the chest and abdomen were performed, which did show significant lymphadenopathy. The left inguinal lymph node was biopsied on 05/04/2019 consistent with a lymphoma. He was given chemotherapy; however, has significant swelling in the neck and axillary region as well as in the supracervical region. He also has developed symptomatic ascites as well as bilateral lower extremity edema. CT scan as well as a PET scan done recently has shown a bulky recurrent disease. DESCRIPTION OF PROCEDURE: The patient was brought to the operating room and laid supine on the table. After adequate IV pain and sedative medications and general laryngeal mask airway intubation, the abdomen was prepped and draped in a standard surgical fashion and the area of the right lower abdominal quadrant marked by ultrasound before the procedure. The skin, subcutaneous tissue and muscle layers as well as the peritoneal lining were then anesthetized using 1% lidocaine. A vertical skin incision was made using a 15-blade and the catheter and trocar were then introduced withdrawing of straw yellow transudative fluid. The catheter was then advanced over the trocar without any resistance, then connected to tubing and the gravity drainage bag. The catheter was then covered with sterile gauze followed by Op-Site. The patient was then placed in a modified dupont position and the head turned towards the right and the neck and chest were prepped and draped in a standard surgical fashion. Two deep cervical lymph nodes were identified at the base of the neck and the skin was then anesthetized using 1% lidocaine with epinephrine. A skin incision along the glabellar lines was then made using a 15 blade. The subcutaneous tissue was then opened using electrocautery. A self-retaining Weitlaner was placed and the subcutaneous tissue dissected down to the fascia, which was opened using electrocautery. The two adjacent lymph nodes were identified and dissected out using a blunt dissection as well as electrocautery with visualization of good hemostasis. These were sent to pathology. Good hemostasis was observed and subcutaneous tissue was then reapproximated using a 3-0 Vicryl interrupted sutures and the skin was closed using a 4-0 Monocryl running subcuticular suture. This wound was then cleaned and covered with Dermabond. The patient tolerated the procedure well. We will send the ascites fluid for cytology as well as the two left deep cervical lymph nodes for permanent pathology. Job ID: [id number] DocumentID: [id number] Dictated Date: 03/08/2020 10:50:08 Long Winder Tender Date: 03/08/2020 15:17:59 Dictated By: DORIS PEÑA MD [facility]
== END 2020-03-08 15:00 | disposition home or self-care (01) ==
LOC: RAD 08:02
PROVIDERS: ATTEND Surgery
DX: C81.11 Nodular sclerosis Hodgkin lymphoma, lymph nodes of head, face, and neck (principal); R18.8 Other ascites; I10 Essential (primary) hypertension; Z79.01 Long term (current) use of anticoagulants; Z88.5 Allergy status to narcotic agent; Z20.828 Contact with and (suspected) exposure to other viral communicable diseases; Z80.0 Family history of malignant neoplasm of digestive organs
CPT/HCPCS: 38510; 49083; 76942; 87081; 88112; 88305; 88307; 88341; 88342; 88344; 88365; A7048; U0002; 87635

== ENCOUNTER 2020-03-10 07:25 | Inpatient (IN) | payer OTHER ==
[~2020-03-10] VITALS: Ht 180 cm; Wt 91.8 kg
[~2020-03-10 07:25] MED LIST changes: +LIDOCAINE PF 2% 5 ML (XYLOCAINE) VIAL ONE; +MIDAZOLAM 2 MG/2 ML (VERSED) VIAL ONE; +ONDANSETRON 4 MG/2 ML (SDV) Z0FRAN ONE; +SEVOFLURANE (ULTANE) 15 ML INHAL SOLN ONE; +ceFAZolin 2 GM IV Premixed 50 ML ONE; +fentaNYL INJECTION 100 MCG/2 ML AMP ONE; +proPOfol 200 MG/20 ML (DIPRIVAN) VIAL IV ONE
[2020-03-10] MEDS ORDERED: ONDANSETRON 4 MG/2 ML (SDV) Z0FRAN ONE (07:59)
[2020-03-10] MEDS ORDERED: LACTATED RINGERS 1,000 ML IV ONE ×3 (08:00→13:45)
[2020-03-10 08:04] LABS: BILIRUBIN,URINE NEGATIVE (NEGATIVE); CLARITY,URINE CLEAR; COLOR,URINE YELLOW; GLUCOSE, URINE (UA) NEGATIVE (NEGATIVE); KETONES,URINE NEGATIVE (NEGATIVE); LEUKOCYTE ESTERASE ,URINE TRACE (NEGATIVE); NITRITE,URINE NEGATIVE (NEGATIVE); PH,URINE 5.5 (5-9); PROTEIN,URINE TRACE (NEGATIVE)
--- NOTE | 2020-03-10 08:14 | ED General ---
General Chief Complaint: General Problems/Pain Stated Complaint: UNABLE TO EAT OR DRINK, SOB Nursing Triage Note: ARRIVED VIA POV FROM HOME. ASSISTED OUT OF TRUCK AND PLACED ON CART BY SONS. PT VERY WEAK. HX OF LYMPHOMA AND IS CURRENTLY A PT AT THE [facility] AWAITING DX. PARACENTHESIS ON THURSDAY. PT TESTED FOR COVID X4 DAYS AGO THAT WAS NEG. Nursing Sepsis Screen: No Definite Risk Source of Information: Patient Exam Limitations: No Limitations History of Present Illness Date Seen by Provider: Mar 10, 2020 Time Seen by Provider: 07:36 Initial Comments This is 64-year-old gentleman with lymphoma presents to the emergency room with extreme weakness. He was found in the back of his truck by his sons and they had to carry him into the vehicle. He is unable to walk. He was seen a couple weeks ago and admitted to the ER with weakness and urinary tract infection. He has history of lymphoma which has worsened by recent PET scan. He also recently had biopsies performed by Dr. Peña with pending pathology. He is extremely weak and mucous membranes are extremely dry at this time. He says he has not been able to eat or drink the past couple of days due to loss of appetite and nausea. He describes a recent cough also for which he has had multiple Covid screens in the last 2 weeks including February 26, February 27, and March 08, all of which have been negative. He denies fever, diarrhea, or other symptoms of infectious illness. Allergies and Home Medications Allergies Coded Allergies: No Known Drug Allergies (Unverified , 04/19/19) Home Medications Docusate Sodium 100 Mg Capsule, 200 MG PO DAILY PRN for CONSTIPATION-1ST LINE, (Reported) USES ONLY IF TAKING PAIN MEDICATIONS Hydrocodone/Acetaminophen 1 Each Tablet, 1-2 TAB PO Q4H Prescribed by: JYOTHI PEREZ on 03/08/20 0844 Multivitamin 1 Each Tab.chew, 2 EACH PO DAILY, (Reported) Pantoprazole Sodium 40 Mg Tablet.dr, 40 MG PO DAILY PRN for HEARTBURN, (Reported) Polyethylene Glycol 3350 17 Gm Powd.pack, 17 GM PO DAILY PRN for CONSTIPATION- 2ND LINE, (Reported) USES ONLY IF TAKING PAIN MEDICATIONS Tamsulosin HCl 0.4 Mg Cap, 0.4 MG PO DAILY PRN for KIDNEY STONES, (Reported) Patient Home Medication List Home Medication List Reviewed: Yes Review of Systems Review of Systems Constitutional: see HPI EENTM: see HPI Respiratory: see HPI Cardiovascular: other (Tachycardia) Gastrointestinal: abdominal pain Genitourinary: see HPI Musculoskeletal: no symptoms reported Skin: no symptoms reported Psychiatric/Neurological: No Symptoms Reported Hematologic/Lymphatic: See HPI Immunological/Allergic: see HPI Past Sdajfqq-Nnuxtq-Hfrzon Hx Past Med/Social Hx: Reviewed Nursing Past Med/Soc Hx Patient Social History Alcohol Use: Denies Use Recreational Drug Use: No Smoking Status: Never a Smoker 2nd Hand Smoke Exposure: No Recent Foreign Travel: No Contact w/Someone Who Travel: No Recent Infectious Disease Expo: No Recent Hopitalizations: No Immunizations Up To Date Tetanus Booster (TDap): Unknown Seasonal Allergies Seasonal Allergies: No Past Medical History Surgeries: Yes (hernia repair 20 yrs ago, port) Respiratory: No Currently Using CPAP: No Currently Using BIPAP: No Cardiac: Yes Hypertension Neurological: No Sexually Transmitted Disease: No HIV/AIDS: No Genitourinary: No Gastrointestinal: No Musculoskeletal: No Endocrine: No HEENT: No Cancer: Yes Lymphoma Did You Recieve Any Treatments: Yes What Type of Treatment Did You: Chemotherapy Psychosocial: No Integumentary: No Blood Disorders: No Family Medical History No Pertinent Family Hx Physical Exam Vital Signs Vital Signs - First Documented 03/10/20 07:30 Temp 35.0 Pulse 126 Resp 16 B/P (MAP) 124/88 (100) Pulse Ox 96 O2 Delivery Room Air Capillary Refill : Less Than 3 Seconds Height, Weight, BMI Height: '" Weight: lbs. oz. kg; 27.00 BMI Method: General Appearance: WD/WN, Mild Distress, Other (Cachectic and ill-appearing) HEENT: PERRL/EOMI, Other (Mucous membranes very dry) Neck: Normal Inspection Respiratory: Lungs Clear, Normal Breath Sounds, No Accessory Muscle Use, No Respiratory Distress Cardiovascular: No Murmur, Tachycardia Gastrointestinal: Normal Bowel Sounds, Soft, Tenderness (Generalized) Extremity: Normal Inspection, Other (Puffy pitting edema of bilateral lower extremities) Neurologic/Psychiatric: Alert, Oriented x3, Normal Mood/Affect, taxonomist II-XII Norm as Tested, Motor Weakness (Generalized) Skin: Normal Color, Warm/Dry Focused Exam Sepsis Stage: Sepsis Possible Source: Genitouriary Lactate Level 03/10/20 08:05: Lactic Acid Level 4.77*H 03/10/20 11:16: Lactic Acid Level 2.91*H 03/10/20 13:53: Lactic Acid Level 4.01*H Time of Focused Exam: 11:05 Respiratory: Lungs Clear, Normal Breath Sounds Cardiovascular: No Edema, Tachycardia Capillary Refill: Less Than 3 Seconds Skin: normal color, warm/dry Lactic Acid Level Laboratory Tests Test 03/10/20 13:53 Lactic Acid Level 4.01 MMOL/L (0.50-2.00) *H Within 3hrs of presentation: Admin fluids, Admin 30ml/kg IBW due to BMI>30, Admin ABX, Blood cultures prior to ABX's, Focus exam, Lactate level Progress/Results/Core Measures Suspected Sepsis Recent Fever Within 48 Hours: No Infection Criteria Present: None New/Unexplained Altered Menta: No Sepsis Screen: No Definite Risk SIRS Temperature: Pulse: 126 Respiratory Rate: 16 Laboratory Tests 03/10/20 08:05: White Blood Count 17.6H Blood Pressure 124 /88 Mean: 100 03/10/20 08:05: Lactic Acid Level 4.77*H 03/10/20 11:16: Lactic Acid Level 2.91*H 03/10/20 13:53: Lactic Acid Level 4.01*H Laboratory Tests 03/10/20 08:05: Creatinine 1.13, INR Comment 1.8H, Platelet Count 99L, Total Bilirubin 1.7H Results/Orders Lab Results Laboratory Tests Test 03/10/20 07:50 03/10/20 08:05 03/10/20 11:16 03/10/20 13:53 Range/Units Urine Color YELLOW Urine Clarity CLEAR Urine pH 5.5 5-9 Urine Specific [place] >=1.030 1.016-1.022 Urine Protein TRACE H NEGATIVE Urine Glucose (UA) NEGATIVE NEGATIVE Urine Ketones NEGATIVE NEGATIVE Urine Nitrite NEGATIVE NEGATIVE Urine Bilirubin NEGATIVE NEGATIVE Urine Urobilinogen 0.2 < = 1.0 MG/DL Urine Leukocyte Esterase TRACE H NEGATIVE Urine RBC (Auto) 3+ H NEGATIVE Urine RBC TNTC H /HPF Urine WBC 5-10 H /HPF Urine Crystals NONE /LPF Urine Bacteria MODERATE H /HPF Urine Casts NONE /LPF Urine Mucus NEGATIVE /LPF Urine Culture Indicated YES White Blood Count 17.6 H 4.3-11.0 10^3/uL Red Blood Count 3.88 L 4.30-5.52 10^6/uL Hemoglobin 10.6 L 13.3-17.7 g/dL Hematocrit 34 L 40-54 % Mean Corpuscular Volume 87 80-99 fL Mean Corpuscular Hemoglobin 27 25-34 pg Mean Corpuscular Hemoglobin Concent 31 L 32-36 g/dL Red Cell Distribution Width 23.3 H 10.0-14.5 % Platelet Count 99 L 130-400 10^3/uL Mean Platelet Volume 10.8 9.0-12.2 fL Immature Granulocyte % (Auto) 1 % Neutrophils (%) (Auto) 85 H 42-75 % Lymphocytes (%) (Auto) 4 L 12-44 % Monocytes (%) (Auto) 11 0-12 % Eosinophils (%) (Auto) 0 0-10 % Basophils (%) (Auto) 0 0-10 % Neutrophils # (Auto) 14.9 H 1.8-7.8 10^3/uL Lymphocytes # (Auto) 0.6 L 1.0-4.0 10^3/uL Monocytes # (Auto) 1.8 H 0.0-1.0 10^3/uL Eosinophils # (Auto) 0.0 0.0-0.3 10^3/uL Basophils # (Auto) 0.0 0.0-0.1 10^3/uL Immature Granulocyte # (Auto) 0.2 H 0.0-0.1 10^3/uL Neutrophils % (Manual) 91 % Lymphocytes % (Manual) 1 % Monocytes % (Manual) 7 % Band Neutrophils 1 % Poikilocytosis MODERATE Basophilic Stippling Anisocytosis MODERATE Acanthocytes MODERATE Prothrombin Time 21.2 H 12.2-14.7 SEC INR Comment 1.8 H 0.8-1.4 Activated Partial Thromboplast Time 46 H 24-35 SEC Sodium Level 134 L 135-145 MMOL/L Potassium Level 4.9 3.6-5.0 MMOL/L Chloride Level 98 98-107 MMOL/L Carbon Dioxide Level 19 L 21-32 MMOL/L Anion Gap 17 H 5-14 MMOL/L Blood Urea Nitrogen 54 H 7-18 MG/DL Creatinine 1.13 0.60-1.30 MG/DL Estimat Glomerular Filtration Rate > 60 BUN/Creatinine Ratio 48 Glucose Level 149 H 70-105 MG/DL Lactic Acid Level 4.77 *H 2.91 *H 4.01 *H 0.50-2.00 MMOL/L Calcium Level 10.9 H 8.5-10.1 MG/DL Corrected Calcium 12.2 H 8.5-10.1 MG/DL Magnesium Level 2.7 H 1.6-2.4 MG/DL Total Bilirubin 1.7 H 0.1-1.0 MG/DL Aspartate Amino Transf (AST/SGOT) 25 5-34 U/L Alanine Aminotransferase (ALT/SGPT) 15 0-55 U/L Alkaline Phosphatase 265 H 40-136 U/L C-Reactive Protein High Sensitivity 12.19 H 0.00-0.50 MG/DL Total Protein 5.1 L 6.4-8.2 GM/DL Albumin 2.4 L 3.2-4.5 GM/DL Procalcitonin 0.94 H <0.10 NG/ML My Orders Orders - MELISA RANKIN MD Cbc With Automated Diff (03/10/20 07:36) Comprehensive Metabolic Panel (03/10/20 07:36) Magnesium (03/10/20 07:36) Ua Culture If Indicated (03/10/20 07:36) Ed Iv/Invasive Line Start (03/10/20 07:36) Lactated Ringers (Lr 1000 Ml Iv Solution (03/10/20 08:00) Ondansetron Injection (Zofran Injectio (03/10/20 07:59) Manual Differential (03/10/20 08:05) Urine Culture (03/10/20 07:50) Blood Culture (03/10/20 08:53) Sputum Culture (03/10/20 08:53) Protime With Inr (03/10/20 08:53) Partial Thromboplastin Time (03/10/20 08:53) Chest 1 View, Ap/Pa Only (03/10/20 08:53) Ed Iv/Invasive Line Start (03/10/20 08:53) Vital Signs Adult Sepsis Patie Q15M (03/10/20 08:53) O2 (03/10/20 08:53) Remove Rings In Anticipation O (03/10/20 08:53) Lactic Acid Analyzer (03/10/20 08:53) Ceftriaxone For Iv Use (Rocephin For I (03/10/20 09:00) Ns Iv 1000 Ml (Sodium Chloride 0.9%) (03/10/20 09:00) Ct Chest/Abdomen/Pelvis W (03/10/20 08:55) Iohexol Injection (Omnipaque 350 Mg/Ml 1 (03/10/20 09:30) Received Contrast (Hold Metformin- Contr (03/10/20 09:30) Ns (Ivpb) (Sodium Chloride 0.9% Ivpb Bag (03/10/20 09:30) Lactated Ringers (Lr 1000 Ml Iv Solution (03/10/20 11:15) Hs C Reactive Protein (03/10/20 11:18) Procalcitonin (Pct) (03/10/20 11:18) Ondansetron Injection (Zofran Injectio (03/10/20 12:30) Medications Given in ED Current Medications Medications Dose Ordered Sig/Olga Route Start Time Stop Time Status Last Admin Dose Admin Ceftriaxone Sodium 1000 mg/ Sterile Water 10 ml @ 200 mls/hr ONCE ONCE IV 03/10/20 09:00 03/10/20 09:02 DC 03/10/20 10:02 200 MLS/HR Iohexol 100 ml ONCE ONCE IV 03/10/20 09:30 03/10/20 09:32 DC 03/10/20 09:32 100 ML Lactated Ringer's 1,000 ml @ 0 mls/hr Q0M ONCE IV 03/10/20 08:00 03/10/20 08:02 DC 03/10/20 08:11 1,000 MLS/HR Lactated Ringer's 1,000 ml @ 0 mls/hr Q0M ONCE IV 03/10/20 11:15 03/10/20 11:16 DC 03/10/20 12:11 1,000 MLS/HR Sodium Chloride 100 ml ONCE ONCE IV 03/10/20 09:30 03/10/20 09:32 DC 03/10/20 09:32 80 ML Vital Signs/I&O 03/10/20 03/10/20 03/10/20 03/10/20 07:30 13:30 13:57 14:18 Temp 35.0 Pulse 126 108 112 Resp 16 16 B/P (MAP) 124/88 (100) 131/83 Pulse Ox 96 96 96 O2 Delivery Room Air Room Air Room Air Capillary Refill : Less Than 3 Seconds Blood Pressure Mean: 100 Progress Note #1: Time: 08:15 Progress Note Patient was seen and examined. Labs are pending. IV fluids are infusing. Zofran given for nausea. Progress Note #2: Time: 11:06 Progress Note Patient was rehydrated with 2 L of IV fluid in the emergency room. IV fluids will be continued on the floor. Lactic acid was markedly elevated which I believe is a reflection of hydration status rather than severe sepsis. Rocephin was given for urinary tract infection in the ER. I discussed CODE STATUS with the patient and he still requests full code. A third liter of IVF was ordered. Diagnostic Imaging Diagonstic Imaging: Xray Plain Films/CT/US/NM/MRI: chest Comments NAME: PRATIK MELÉNDEZ [facility] REC#: [id number] PT STATUS: REG ER : 1955 PHYSICIAN: MELISA RANKIN MD ADMIT DATE: 03/10/20/ER Draft Date of Exam:03/10/20 CHEST 1 VIEW, AP/PA ONLY INDICATION: Sepsis. TECHNIQUE: Single view chest 9:21 AM. CORRELATION STUDY: 02/27/2020 FINDINGS: Left subclavian Infusaport catheter tip over the SVC. Heart size and mediastinum appear generally stable. Hilar nodularity and prominence overall unchanged. Opacities at both lung bases, likely effusions. May be minimal atelectasis or infiltrate. IMPRESSION: 1. Small effusions, minimal atelectasis or less likely infiltrate at both lung bases. 2. Nodular fullness bilateral néstor overall generally stable. Dictated on workstation # [id number] Dict: 03/10/20928 Trans: 03/10/2046 [facility] [id number] Interpreted by: SD LOGAN DO Reviewed: Reviewed by Me Diagonstic Imaging: CT Plain Films/CT/US/NM/MRI: chest, abdomen, pelvis Comments NAME: PRATIK MELÉNDEZ [facility] REC#: [id number] PT STATUS: REG ER : 1955 PHYSICIAN: MELISA RANKIN MD ADMIT DATE: 03/10/20/ER Draft Date of Exam:03/10/20 CT CHEST/ABDOMEN/PELVIS W PROCEDURE: CT chest, abdomen, and pelvis with contrast. TECHNIQUE: Multiple contiguous axial images were obtained through the chest, abdomen, and pelvis after the administration of intravenous contrast. Auto Exposure Controls were utilized during the CT exam to meet ALARA standards for radiation dose reduction. INDICATION: Abdominal pain, weakness. History of Hodgkin's lymphoma. CORRELATION STUDY: CT anterior chest, abdomen and pelvis 02/28/2020 FINDINGS: CT CHEST: Heart size is generally stable. Trace anterior pericardial effusion. Thoracic aorta is unremarkable. The central pulmonary arteries appearing generally unremarkable. There is the presence of pathologically enlarged mediastinal and hilar lymph nodes again demonstrated. The severity of lymphadenopathy overall appears slightly diminished. The largest lymph node mass in the right subcarinal region currently approximately 5.4 x 3.6 cm, previously 5.8 x 3.8 cm. Right infrahilar lymph node mass measuring approximately 4.3 x 3.8 cm, previously 3.8 x 3.7. However, the overall bulk of the lymphadenopathy appears generally diminished. The bilateral pleural effusions, moderate on the left and small on the right have adversely increased. Thickness on the left layers to 6 cm. Some compressive atelectasis suggested. There is minimal wispy-like opacities of the peripheral lung gerber, could be reflective of mild edema. Superimposed inflammatory or infectious process not excluded. Slightly more focal density about the right upper lobe overall are generally stable. Left subclavian Infusaport catheter is present, the tip at the SVC. Soft tissue gas adjacent to the port and neck may be iatrogenic. CT ABDOMEN and PELVIS: The liver is heterogeneous and somewhat nodular. There are innumerable low-density masses scattered throughout both lobes of the liver. These overall appear to be significantly better visualized compared to prior study. This may be owing to perhaps post treatment changes. Lesions range in size from a few millimeters up to a more confluent mass in the right hepatic lobe centrally which measures up to 4.4 x 4.0 cm. Minimal peripheral enhancement. There is also continued presence of low-density lesions within the spleen. However, is perhaps slightly more discrete. Largest noted superiorly measuring slightly greater than 5 cm. The spleen is enlarged. There is continued abdominal and pelvic ascites. The amount of fluid however is less pronounced. Generalized third spacing with subcutaneous edema. Pancreas and kidneys are generally stable. Staghorn type calculus within the right renal pelvis unchanged. No overt hydronephrosis. Additional smaller calcification inferior pole of the left kidney. Small bilateral adrenal gland masses are also present, left greater than right. Extensive, bulky central retroperitoneal lymphadenopathy does persist. The lymphadenopathy overall stable to perhaps slightly diminished. Bulky lymphadenopathy extends along the bilateral iliac lymph node region significantly greater on the left compared to the right. There are also a few prominent bilateral inguinal lymph nodes. Gastrointestinal tract demonstrates no suggestion for obstruction. Stomach is distended with fluid. Urinary bladder decompressed around a Peñaloza catheter. IMPRESSION: CT CHEST: 1. Moderate left and small right pleural effusions have adversely increased from prior study. Likely associated compressive atelectasis of the lower lobe. Scattered parenchymal densities greatest involving the right upper lobe, overall generally stable. Could be reflective of a more focal area of inflammatory infectious process. 2. Extensive mediastinal hilar lymphadenopathy does persist. Overall, perhaps slightly less bulky. CT ABDOMEN and PELVIS: 1. Extensive abdominal and pelvic bulky lymphadenopathy does persist. Overall perhaps minimally improved. There is some low density within the lymph nodes may reflect some necrosis. 2. There has however been extensive adverse change in the appearance of the liver. There are innumerable low-density masses scattered throughout the liver significantly adversely changed from prior. This may be owing to better visualization from presumed posttreatment. 3. Low-density masses in the spleen persist with splenic enlargement. 4. Abdominal ascites and generalized third spacing overall perhaps slightly diminished. Dictated on workstation # [id number] Dict: 03/10/20 0945 Trans: 03/10/20 1016 [facility] [id number] Interpreted by: SD LOGAN DO Reviewed: Reviewed by Me Departure Communication (Admissions) Time/Spoke to Admitting Phy: 11:15 Dr. Gallo Impression Primary Impression: Dehydration Additional Impressions: Generalized weakness Hodgkin lymphoma Qualified Codes: C81.98 - Hodgkin lymphoma, unspecified, lymph nodes of multiple sites UTI (urinary tract infection) Qualified Codes: N39.0 - Urinary tract infection, site not specified Sepsis Qualified Codes: A41.9 - Sepsis, unspecified organism Disposition: ADMITTED INPATIENT Condition: Improved Admissions Decision to Admit Reason: Admit from ER (General) Decision to Admit/Date: Mar 10, 2020 Time/Decision to Admit Time: 08:05 Departure-Patient Inst. Referrals: HAO QUINTANA MD (PCP/Family) Primary Care Physician Copy Copies To 1: ELIDA HENDRIX JOSHUA T MD Mar 10, 2020 08:14
[2020-03-10 08:18] LABS: BASOPHILS % (AUTO) 0 % (0-10); EOSINOPHILS % (AUTO) 0 % (0-10); HEMATOCRIT 34 % (40-54); HEMOGLOBIN 10.6 g/dL (13.3-17.7); LYMPHOCYTES # (AUTO) 0.6 10^3/uL (1.0-4.0); LYMPHOCYTES % (AUTO) 4 % (12-44); MEAN CORPUSCULAR HEMOGLOBIN 27 pg (25-34); MEAN CORPUSCULAR HGB CONC 31 g/dL (32-36); MEAN CORPUSCULAR VOLUME 87 fL (80-99); MEAN PLATELET VOLUME 10.8 fL (9.0-12.2); MONOCYTES # (AUTO) 1.8 10^3/uL (0.0-1.0); MONOCYTES % (AUTO) 11 % (0-12); NEUTROPHILS # (AUTO) 14.9 10^3/uL (1.8-7.8); NEUTROPHILS % (AUTO) 85 % (42-75); PLATELET COUNT 99 10^3/uL (130-400); WHITE BLOOD COUNT 17.6 10^3/uL (4.3-11.0)
[2020-03-10 08:25] LABS: ALBUMIN 2.4 GM/DL (3.2-4.5); CHLORIDE 98 MMOL/L (98-107); POTASSIUM 4.9 MMOL/L (3.6-5.0); SODIUM 134 MMOL/L (135-145)
[2020-03-10 08:26] LABS: CALCIUM 10.9 MG/DL (8.5-10.1)
[2020-03-10 08:28] LABS: GLUCOSE 149 MG/DL (70-105); TOTAL PROTEIN 5.1 GM/DL (6.4-8.2)
[2020-03-10 08:29] LABS: CARBON DIOXIDE 19 MMOL/L (21-32)
[2020-03-10 08:29] LABS: RBC,URINE TNTC /HPF
[2020-03-10 08:30] LABS: BACTERIA,URINE MODERATE /HPF
[2020-03-10 08:30] LABS: BILIRUBIN,TOTAL 1.7 MG/DL (0.1-1.0)
[2020-03-10 08:31] LABS: ALKALINE PHOSPHATASE 265 U/L (40-136); CREATININE SERUM 1.13 MG/DL (0.60-1.30); GFR ESTIMATED > 60
[2020-03-10 08:32] LABS: BUN/CREATININE RATIO 48
[2020-03-10 08:34] LABS: ALANINE AMINOTRANSFERASE 15 U/L (0-55)
[2020-03-10 08:35] LABS: MAGNESIUM 2.7 MG/DL (1.6-2.4)
[2020-03-10 08:38] LABS: BAND NEUTROPHILS 1 %; LYMPHOCYTES % (MANUAL) 1 %; MONOCYTES % (MANUAL) 7 %; NEUTROPHILS % (MANUAL) 91 %
[2020-03-10 08:39] LABS: POIKILOCYTOSIS MODERATE
[2020-03-10 08:40] LABS: ANISOCYTOSIS MODERATE
[2020-03-10 08:41] LABS: ACANTHOCYTES MODERATE
--- NOTE | 2020-03-10 08:55 | NUR ---
RESTING IN BED ET DENIES NEEDS AT THIS TIME.
[2020-03-10] MEDS ORDERED: cefTRIAXone FOR IV USE 1,000 MG in WATER (STERILE) FOR INJECTION 10 ML IV ONE (09:00)
[2020-03-10] MEDS ORDERED: NS IV 1000 ML 1,000 ML IV SCH (09:00)
--- NOTE | 2020-03-10 09:19 | NUR ---
UPDATED THAT HE WILL BE ADMITTED TO THE HOSPITAL
[2020-03-10] MEDS ORDERED: NS 100 ML (IVPB) BAG IV ONE (09:30)
[2020-03-10] MEDS ORDERED: IOHEXOL 350 MG/ML 100 ML (OMNIPAQUE 350) VIAL IV ONE (09:30)
[2020-03-10] MEDS ORDERED: HOLD METFORMIN - RECEIVED CONTRAST 20 ML VIAL IV SCH (09:30)
--- NOTE | 2020-03-10 09:37 | Diagnostic Imaging Report ---
INDICATION: Sepsis. TECHNIQUE: Single view chest 9:21 AM. CORRELATION STUDY: 02/27/2020 FINDINGS: Left subclavian Infusaport catheter tip over the SVC. Heart size and mediastinum appear generally stable. Hilar nodularity and prominence overall unchanged. Opacities at both lung bases, likely effusions. May be minimal atelectasis or infiltrate. IMPRESSION: 1. Small effusions, minimal atelectasis or less likely infiltrate at both lung bases. 2. Nodular fullness bilateral néstor overall generally stable. Dictated by: Dictated on workstation # [id number]
--- NOTE | 2020-03-10 10:17 | Diagnostic Imaging Report ---
PROCEDURE: CT chest, abdomen, and pelvis with contrast. TECHNIQUE: Multiple contiguous axial images were obtained through the chest, abdomen, and pelvis after the administration of intravenous contrast. Auto Exposure Controls were utilized during the CT exam to meet ALARA standards for radiation dose reduction. INDICATION: Abdominal pain, weakness. History of Hodgkin's lymphoma. CORRELATION STUDY: CT anterior chest, abdomen and pelvis 02/28/2020 FINDINGS: CT CHEST: Heart size is generally stable. Trace anterior pericardial effusion. Thoracic aorta is unremarkable. The central pulmonary arteries appearing generally unremarkable. There is the presence of pathologically enlarged mediastinal and hilar lymph nodes again demonstrated. The severity of lymphadenopathy overall appears slightly diminished. The largest lymph node mass in the right subcarinal region currently approximately 5.4 x 3.6 cm, previously 5.8 x 3.8 cm. Right infrahilar lymph node mass measuring approximately 4.3 x 3.8 cm, previously 3.8 x 3.7. However, the overall bulk of the lymphadenopathy appears generally diminished. The bilateral pleural effusions, moderate on the left and small on the right have adversely increased. Thickness on the left layers to 6 cm. Some compressive atelectasis suggested. There is minimal wispy-like opacities of the peripheral lung gerber, could be reflective of mild edema. Superimposed inflammatory or infectious process not excluded. Slightly more focal density about the right upper lobe overall are generally stable. Left subclavian Infusaport catheter is present, the tip at the SVC. Soft tissue gas adjacent to the port and neck may be iatrogenic. CT ABDOMEN and PELVIS: The liver is heterogeneous and somewhat nodular. There are innumerable low-density masses scattered throughout both lobes of the liver. These overall appear to be significantly better visualized compared to prior study. This may be owing to perhaps post treatment changes. Lesions range in size from a few millimeters up to a more confluent mass in the right hepatic lobe centrally which measures up to 4.4 x 4.0 cm. Minimal peripheral enhancement. There is also continued presence of low-density lesions within the spleen. However, is perhaps slightly more discrete. Largest noted superiorly measuring slightly greater than 5 cm. The spleen is enlarged. There is continued abdominal and pelvic ascites. The amount of fluid however is less pronounced. Generalized third spacing with subcutaneous edema. Pancreas and kidneys are generally stable. Staghorn type calculus within the right renal pelvis unchanged. No overt hydronephrosis. Additional smaller calcification inferior pole of the left kidney. Small bilateral adrenal gland masses are also present, left greater than right. Extensive, bulky central retroperitoneal lymphadenopathy does persist. The lymphadenopathy overall stable to perhaps slightly diminished. Bulky lymphadenopathy extends along the bilateral iliac lymph node region significantly greater on the left compared to the right. There are also a few prominent bilateral inguinal lymph nodes. Gastrointestinal tract demonstrates no suggestion for obstruction. Stomach is distended with fluid. Urinary bladder decompressed around a Peñaloza catheter. IMPRESSION: CT CHEST: 1. Moderate left and small right pleural effusions have adversely increased from prior study. Likely associated compressive atelectasis of the lower lobe. Scattered parenchymal densities greatest involving the right upper lobe, overall generally stable. Could be reflective of a more focal area of inflammatory infectious process. 2. Extensive mediastinal hilar lymphadenopathy does persist. Overall, perhaps slightly less bulky. CT ABDOMEN and PELVIS: 1. Extensive abdominal and pelvic bulky lymphadenopathy does persist. Overall perhaps minimally improved. There is some low density within the lymph nodes may reflect some necrosis. 2. There has however been extensive adverse change in the appearance of the liver. There are innumerable low-density masses scattered throughout the liver significantly adversely changed from prior. This may be owing to better visualization from presumed posttreatment. 3. Low-density masses in the spleen persist with splenic enlargement. 4. Abdominal ascites and generalized third spacing overall perhaps slightly diminished. Dictated by: Dictated on workstation # [id number]
[2020-03-10 11:25] LABS: INR 1.8 (0.8-1.4); PROTHROMBIN TIME PATIENT 21.2 SEC (12.2-14.7)
--- NOTE | 2020-03-10 11:25 | NUR ---
[facility] CONTACTED FOR A BED.
--- NOTE | 2020-03-10 11:56 | NUR ---
ATTEMPT TO CALL [facility] FOR BED NUMBER.
[2020-03-10] MEDS ORDERED: ONDANSETRON 4 MG/2 ML (SDV) Z0FRAN IVP ONE (12:30)
[2020-03-10 13:30] VITALS: BP 131/83
--- NOTE | 2020-03-10 13:57 | NUR ---
CR 1.13; CR CL > 60; WT 90 KG; VANCO 1750 MG IV BOLUS THEN 1000 MG IV Q12H; TROUGH AFTER 4TH DOSE
[2020-03-10] MEDS ORDERED: VANCOMYCIN 1,750 MG/NS 500 ML IVPB IV NR ×2 (14:00)
[2020-03-10] MEDS ORDERED: CATHETER FLUSH 10 ML SYR IV PRN (14:00)
[2020-03-10] MEDS ORDERED: CATHETER FLUSH 10 ML SYR IV SCH (14:00)
[2020-03-10] MEDS ORDERED: VANCOMYCIN INJECTION 0.1 MG in NS (IVPB) 250 ML IV SCH (14:00)
[2020-03-10] MEDS ORDERED: ACETAMINOPHEN 650 MG SUPP (TYLENOL) PR PRN (14:30)
[2020-03-10] MEDS ORDERED: ACETAMINOPHEN 325 MG TABLET PO PRN (14:30)
[2020-03-10] MEDS ORDERED: ONDANSETRON 4 MG/2 ML (SDV) Z0FRAN IV PRN (14:30)
[2020-03-10] MEDS: LACTATED RINGERS 1,000 ML IV SCH (14:59)
[2020-03-10] MEDS ORDERED: FLU QUADRIvalent (3YOA+) 60 mcg/0.5 ml 2020-21 (AFLURIA) IM ONE (15:00)
[2020-03-10] MEDS: CEFEPIME INJECTION 1,000 MG in WATER (STERILE) FOR INJECTION 10 ML IV SCH (17:54)
--- NOTE | 2020-03-10 20:14 | History & Physical-Hospitalist ---
History of Present Illness HPI/Chief Complaint Shaunna Montoya Jr is a 64 year old male with PMH HTN, Hodgkin lymphoma, who presented with weakness. He reports that he "lost his legs". He explains that he has been very weak. He reports shortness of breath and cough. He denies fevers. He reports abdominal pain and swelling. He denies nausea, vomiting, and diarrhea. He denies chest pain. He has not been eating or drinking for the past couple days. He says that he was diagnosed with lymphoma in May 2019. He ended up undergoing chemotherapy. He recently had some worsening symptoms and underwent a cervical lymph node biopsy two days ago. He was tested for COVID and negative at that time. Source: patient Exam Limitations: no limitations Date Seen 03/10/20 Time Seen by a Provider: 14:10 Attending Physician Maggi Rodriguez MD PCP No,Local Physician Referring Physician Date of Admission Mar 10, 2020 at 11:20 Home Medications & Allergies Home Medications Reviewed patient Home Medication Reconciliation performed by pharmacy medication reconciliations astro technician and/or nursing. Patients Allergies have been reviewed. Allergies Allergies Coded Allergies No Known Drug Allergies (Unverified04/19/19) Past Bombmsr-Xdoznb-Frkckh Hx Past Med/Social Hx: Reviewed Nursing Past Med/Soc Hx Patient Social History Alcohol Use: Denies Use Recreational Drug Use: No Smoking Status: Never a Smoker 2nd Hand Smoke Exposure: No Recent Foreign Travel: No Contact w/other who traveled: No Recent Hopitalizations: No Recent Infectious Disease Expo: No Immunizations Up To Date Tetanus Booster (TDap): Unknown Seasonal Allergies Seasonal Allergies: No Past Medical History Currently Using CPAP: No Currently Using BIPAP: No Cardiac: Hypertension Sexually Transmitted Disease: No HIV/AIDS: No Cancer: Lymphoma Did You Recieve Any Treatments: Yes What Type of Treatment Did You: Chemotherapy History of Blood Disorders: No Family History No Pertinent Family Hx Review of Systems Constitutional: weakness EENTM: no symptoms reported Respiratory: cough, short of breath Cardiovascular: no symptoms reported Gastrointestinal: abdominal pain, loss of appetite Genitourinary: no symptoms reported Musculoskeletal: muscle weakness Skin: no symptoms reported Psychiatric/Neurological: No Symptoms Reported Physical Exam Physical Exam Vital Signs Vital Signs - First Documented 03/10/20 07:30 Temp 35.0 Pulse 126 Resp 16 B/P (MAP) 124/88 (100) Pulse Ox 96 O2 Delivery Room Air Capillary Refill : Less Than 3 Seconds Height, Weight, BMI Height: '" Weight: lbs. oz. kg; 27.00 BMI Method: General Appearance: No Apparent Distress, Chronically ill HEENT: PERRL/EOMI, Other (dry mucous membranes) Neck: Normal Inspection, Supple, Other (left cervical biopsy incision) Respiratory: No Respiratory Distress, Decreased Breath Sounds Cardiovascular: Regular Rate, Rhythm, No Murmur Gastrointestinal: Normal Bowel Sounds, Soft, Tenderness Extremity: Normal Inspection, Non Tender, Swelling Neurologic/Psychiatric: Alert, Oriented x3, Normal Mood/Affect, Motor Weakness Skin: Normal Color, Warm/Dry Results Results/Procedures Labs Laboratory Tests 03/10/20 08:05 Patient resulted labs reviewed. Imaging: Reviewed Imaging Report Assessment/Plan Admission Diagnosis Septic shock due to pneumonia Admission Status: Inpatient Order (span 2 midnights) Reason for Inpatient Admission: Septic shock requriing IV fluids and antibiotics Assessment and Plan Septic shock due to pneumonia Lactic acidosis Acute kidney injury Hypercalcemia Thrombocytopenia Hodgkin's lymphoma History of DVT SIRS+ with leukocytosis and tachycardia Lactic acid >4 Creatinine >2x baseline Platelets <[address] revealed bilateral pleural effusions, multiple parenchymal densities, right upper lobe infiltrate, extensive mediastinal lymphadenopathy, extensive abdominal lymphadenopathy, innumerable liver lesions, splenic lesions Consult Hematology/Oncology Begin Vancomycin/Cefepime IV fluids DVT prophylaxis: Lovenox Diagnosis/Problems Diagnosis/Problems (1) Septic shock Status: Acute (2) PNA (pneumonia) Status: Acute (3) Lactic acidosis Status: Acute (4) Acute kidney injury Status: Acute (5) Hypercalcemia of malignancy Status: Acute (6) Hypoalbuminemia due to protein-calorie malnutrition (7) Edema due to hypoalbuminemia (8) Hodgkin lymphoma of lymph nodes of multiple regions Status: Acute Qualifiers: Hodgkin lymphoma type: unspecified type Qualified Codes: C81.98 - Hodgkin lymphoma, unspecified, lymph nodes of multiple sites (9) Thrombocytopenia Status: Acute (10) History of DVT (deep vein thrombosis) Status: Chronic Clinical Quality Measures DVT/VTE Risk/Contraindication: Risk Factor Score Per Nursin RFS Level Per Nursing on Admit: 4+=Very High MAGGI RODRIGUEZ MD Mar 10, 2020 20:14
--- NOTE | 2020-03-10 22:15 | NUR ---
THIS RN CONTACTED PATIENT'S TO GIVE UPDATE, PATIENT MOVED TO ROOM 507. NOTIFIED THIS RN THAT PATIENT HAS EXTREME WEAKNESS TO LOWER EXTREMITIES WELL SWELLING, THAT HIS STRENGTH HAS SIGNIFICANTLY DECREASED OVER LAST 3-4 WEEKS. PATIENT'S LEFT LOWER LEG AND FOOT IS RED/PURPLE, STATES HIS LEG HAS BEEN THIS WAY AND DR. YOU NOTIFIED ON 03/08/20 DURING LYMPH NODE BIOPSY AND PARACENTESIS. PT ALSO SEE'S DR. WANG HIS ONCOLOGIST. ALSO NOTIFIED THIS RN THAT PATIENT HAS HAD DIFFICULTY SWALLOWING SINCE PROCEDURE ON 03/08/20, PATIENT "GURGLES WHEN DRINKING ANYTHING" AND SHE CANNOT GET HIM TO EAT ANY FOOD.
--- NOTE | 2020-03-10 22:57 | NUR ---
THIS RN NOTIFIED DR. RODRIGUEZ OF PATIENT'S 2+ PITTING EDEMA TO BILATERAL LOWER EXTREMITIES, THE LEFT LOWER LEG AND FOOT IS RED/PURPLE AND PULSES OBTAINED VIA DOPPLER, PATIENT ABLE TO WIGGLE TOES AND LIGHTLY PUSH AGAINST MY HANDS, BUT UNABLE TO MOVE LOWER EXTREMITIES OTHERWISE. THIS RN REQUESTED ORDER FOR ULTRASOUND OF LOWER LEFT EXTREMITY, NO NEW ORDER RECEIVED AT THIS TIME. THIS RN ALSO EXPRESSED CONCERNS ABOUT PATIENT'S DIFFICULTY SWALLOWING, PATIENT FAILED BEDSIDE DYSPHAGIA SCREENING. THIS RN REQUESTED ORDER FOR NPO STATUS AND SWALLOW EVALUATION BE COMPLETED BY SPEECH THERAPY. NEW ORDER RECEIVED FROM DR. RODRIGUEZ FOR PUREED DIET WITH NECTAR THICKENED LIQUIDS. THIS RN PLACED ORDER BUT UNCOMFORTABLE GIVING PATIENT ANYTHING BY MOUTH DUE TO DIFFICULTY SWALLOWING. THIS RN REQUESTED TO CONSULT DR. WANG WHO PATIENT SEE'S HIS ONCOLOGIST. NEW ORDER RECEIVED TO CONSULT DR. WANG FROM DR. RODRIGUEZ.
[2020-03-10] MEDS ORDERED: ceFAZolin INJECTION 0 MG ONE (23:55)
[2020-03-10] MEDS ORDERED: WATER (STERILE) FOR INJECTION 10 ML ONE (23:55)
[2020-03-10] MEDS ORDERED: WATER (STERILE) FOR INJECTION 0 ML ONE (23:55)
[2020-03-11] MEDS ORDERED: CEFEPIME 1 GM/10 ML (MAXIPIME) VIAL ONE ×3 (00:09→11:34)
[2020-03-11] MEDS: LACTATED RINGERS 1,000 ML IV SCH ×3 (00:12→08:10)
[2020-03-11] MEDS: CEFEPIME INJECTION 1,000 MG in WATER (STERILE) FOR INJECTION 10 ML IV SCH ×3 (00:13→11:43)
[2020-03-11] MEDS ORDERED: VANCOMYCIN 1000 MG/VIAL ONE (01:51)
[2020-03-11] MEDS ORDERED: NS (IVPB) 250 ML ONE (01:51)
[2020-03-11] MEDS: VANCOMYCIN 1 GM/NS 250 ML IVPB IV SCH ×4 (02:06→13:40)
--- NOTE | 2020-03-11 02:11 | NUR ---
THIS RN NOTIFIED DR. RODRIGUEZ OF LACTIC ACID OF 3.05 (UP FROM 2.54), AND LOW URINE OUTPUT OF 20ML/HR OVER LAST 4 HOURS. NEW ORDER RECEIVED FOR LACTIC ACID TO BE DRAWN Q6HR.
[2020-03-11 02:33] LABS: BASOPHILS % (AUTO) 0 % (0-10); EOSINOPHILS % (AUTO) 0 % (0-10); HEMATOCRIT 32 % (40-54); LYMPHOCYTES # (AUTO) 0.5 10^3/uL (1.0-4.0); LYMPHOCYTES % (AUTO) 3 % (12-44); MEAN CORPUSCULAR HEMOGLOBIN 28 pg (25-34); MEAN CORPUSCULAR HGB CONC 31 g/dL (32-36); MEAN CORPUSCULAR VOLUME 88 fL (80-99); MEAN PLATELET VOLUME 10.3 fL (9.0-12.2); MONOCYTES # (AUTO) 1.3 10^3/uL (0.0-1.0); MONOCYTES % (AUTO) 8 % (0-12); NEUTROPHILS % (AUTO) 88 % (42-75); PLATELET COUNT 76 10^3/uL (130-400); WHITE BLOOD COUNT 15.9 10^3/uL (4.3-11.0)
[2020-03-11 02:47] LABS: CHLORIDE 101 MMOL/L (98-107); POTASSIUM 4.8 MMOL/L (3.6-5.0); SODIUM 133 MMOL/L (135-145)
[2020-03-11 02:48] LABS: CALCIUM 10.1 MG/DL (8.5-10.1); GLUCOSE 119 MG/DL (70-105)
[2020-03-11 02:50] LABS: CARBON DIOXIDE 19 MMOL/L (21-32)
[2020-03-11 02:52] LABS: PHOSPHORUS 3.8 MG/DL (2.3-4.7)
[2020-03-11 02:53] LABS: BUN/CREATININE RATIO 55; CREATININE SERUM 0.97 MG/DL (0.60-1.30); GFR ESTIMATED > 60
[2020-03-11 02:55] LABS: MAGNESIUM 2.5 MG/DL (1.6-2.4)
[2020-03-11] MEDS ORDERED: WATER (STERILE) FOR INJECTION 10 ML ONE (04:59)
--- NOTE | 2020-03-11 06:35 | NUR ---
THIS RN NOTIFIED DR. RODRIGUEZ OF PATIENT'S LACTIC ACID OF 3.1, UP FROM 3.05, HR SUSTAINING IN 120'S, URINE OUTPUT 17 ML/HR OVER LAST FOUR HOURS. NO NEW ORDERS RECEIVED AT THIS TIME.
[2020-03-11] MEDS ORDERED: ENOXAPARIN 100 MG/1 ML (LOVENOX) SYR SC SCH (08:00)
[2020-03-11 08:02] LABS: FIBRIN DEGRADATION PRODUCTS 2.66 UG/ML (0.00-0.49); INR 1.7 (0.8-1.4); PROTHROMBIN TIME PATIENT 20.4 SEC (12.2-14.7)
--- NOTE | 2020-03-11 08:53 | Diagnostic Imaging Report ---
Portable erect AP chest at 6:44 AM INDICATION: Dyspnea As on the prior exam of 03/10/2020 there is shallow inspiration. The heart is stable in size when compared to the prior study and there is still a small amount of atelectasis/infiltrate and fluid involving both lung bases, particularly the left lung base. The upper lungs remain generally clear. There may be a new faint patchy infiltrate in the periphery of the right midlung however. The mediastinum is not widened. The osseous structures are intact. The left-sided Port-A-Cath seen previously is again evident and no different. IMPRESSION: 1. When compared to the prior exam, there has been no significant change. However there may be a faint new area of pneumonia developing in the right midlung. A follow-up exam would be recommended for continued evaluation. Dictated by: Dictated on workstation # [id number]
[2020-03-11] MEDS ORDERED: FAMOTIDINE 20MG/2ML IV (PEPCID) IVP SCH (09:00)
--- NOTE | 2020-03-11 09:37 | NUR ---
Dr Buitrago notified of consult regarding pts left lower extremity.
--- NOTE | 2020-03-11 12:00 | NUR ---
PHONE CALL PLACED TO PATIENTS . UPDATES GIVEN AND QUESTIONS ANSWERED. THIS RN INFORMED THAT SHE WOULD CALL HER BACK WITH ANY UPDATES FROM [facility]. STATES SHE HAS NO FURTHER QUESTIONS OR CONCERNS AT THIS TIME.
--- NOTE | 2020-03-11 12:45 | Progress Note - Hospitalist ---
Subjective HPI/CC On Admission Date Seen by Provider: Mar 11, 2020 Time Seen by Provider: 09:30 Shaunna Montoya Jr is a 64 year old male with PMH HTN, Hodgkin lymphoma, who presented with weakness. He reports that he "lost his legs". He explains that he has been very weak. He reports shortness of breath and cough. He denies fevers. He reports abdominal pain and swelling. He denies nausea, vomiting, and diarrhea. He denies chest pain. He has not been eating or drinking for the past couple days. He says that he was diagnosed with lymphoma in May 2019. He ended up undergoing chemotherapy. He recently had some worsening symptoms and underwent a cervical lymph node biopsy two days ago. He was tested for COVID and negative at that time. Subjective/Events-last exam he is still feeling weak. He is unable to move his legs. He is still able to wiggle his toes. He is feeling very weak. He denies pain. He denies trouble breathing. Focused Exam Lactate Level 03/11/20 00:20: Lactic Acid Level 3.05*H 03/11/20 06:02: Lactic Acid Level 3.10*H 03/11/20 12:01: Time of Focused Exam: 11:05 Lactic Acid Level Laboratory Tests Test 03/11/20 12:01 Objective Exam Vital Signs Vital Signs Date Time Temp Pulse Resp B/P (MAP) Pulse Ox O2 Delivery O2 Flow Rate FiO2 03/11/20 09:00 93 Room Air 03/11/20 08:00 36.0 124 17 123/80 (94) Capillary Refill : Greater Than 3 Seconds General Appearance: Chronically ill, Thin Neck: Supple, Other (left-sided cervical biopsy incision) Respiratory: No Respiratory Distress, Decreased Breath Sounds Cardiovascular: No Murmur, Tachycardia (regular rhythm) Gastrointestinal: Normal Bowel Sounds, Non Tender, Soft Extremity: Non Tender, Swelling (4+ pitting edema bilateral lower extremities) Neurologic/Psychiatric: Alert, Oriented x3, Motor Weakness (bilateral lower extremity weakness, sensation intact) Skin: Ecchymosis (left foot discolored and cold, dorsalis pedis pulse weak), Mottled Results/Procedures Lab Laboratory Tests 03/11/20 02:25 Patient resulted labs reviewed. Imaging: Reviewed Imaging Films, Reviewed Imaging Report Assessment/Plan Assessment and Plan Assess & Plan/Chief Complaint Septic shock due to pneumonia Lactic acidosis Acute kidney injury Hypercalcemia Thrombocytopenia History of Hodgkin's lymphoma Recurrent lymphoma Acute left lower extremity DVT Poor prognosis Lactic acid slightly improved, remains elevated >3 Creatinine slightly improved 0.97 Platelets decreased [address] revealed bilateral pleural effusions, multiple parenchymal densities, right upper lobe infiltrate, extensive mediastinal lymphadenopathy, extensive abdominal lymphadenopathy, innumerable liver lesions, splenic lesions Continue Vancomycin/Cefepime IV fluids, decrease rate Lower extremity doppler revealed extensive left lower extremity DVT Therapeutic Lovenox Arterial doppler showed no evidence of occlusion Obtain CT thoracic/lumbar spine to rule out spinal cord compression Palliative care consulted, appreciate assistance Discussed with patient's , explained severity of illness and poor prognosis Discussed case with Dr. Cloud, recommended transer to to lymphoma service Transfer process initiated with transfer center Diagnosis/Problems Diagnosis/Problems (1) Septic shock Status: Acute (2) PNA (pneumonia) Status: Acute (3) Lactic acidosis Status: Acute (4) Acute kidney injury Status: Acute (5) Hypercalcemia of malignancy Status: Acute (6) Hypoalbuminemia due to protein-calorie malnutrition (7) Edema due to hypoalbuminemia (8) Hodgkin lymphoma of lymph nodes of multiple regions Status: Acute Qualifiers: Hodgkin lymphoma type: unspecified type Qualified Codes: C81.98 - Hodgkin lymphoma, unspecified, lymph nodes of multiple sites (9) Thrombocytopenia Status: Acute (10) Bilateral leg weakness Status: Acute (11) Acute deep vein thrombosis (DVT) of left lower extremity Status: Acute (12) History of DVT (deep vein thrombosis) Status: Chronic Clinical Quality Measures DVT/VTE Risk/Contraindication: Risk Factor Score Per Nursin RFS Level Per Nursing on Admit: 4+=Very High TAMIR RODRIGUEZ MD Mar 11, 2020 12:45
--- NOTE | 2020-03-11 13:37 | Diagnostic Imaging Report ---
INDICATION: Left foot. Arterial stenosis versus occlusion. Color Doppler velocity and spectral waveform analysis of the arteries of the left lower extremity was performed. Examination shows a normal triphasic and biphasic flow pattern throughout the arteries of the left lower extremity with no stenoses or occlusions identified. IMPRESSION: No abnormality is seen. Dictated by: Dictated on workstation # [id number]
--- NOTE | 2020-03-11 13:40 | Diagnostic Imaging Report ---
PROCEDURE: US Venous Lower Ext Isaiah. TECHNIQUE: Multiple real-time grayscale images were obtained over the lower extremities in various projections, bilaterally. Additional duplex Doppler and color Doppler images were also obtained. INDICATION: Bilateral lower extremity swelling. Examination the veins of both legs was performed. On the left there is extensive thrombosis extending from the iliac veins down into the distal calf with a large amount of thrombus seen. On the right there is normal augmentation, compression and color Doppler flow with no thrombosis or other abnormality seen. IMPRESSION: There is extensive deep venous thrombosis on the left with no thrombosis seen on the right. Dictated by: Dictated on workstation # [id number]
--- NOTE | 2020-03-11 13:51 | Diagnostic Imaging Report ---
PROCEDURE: CT thoracic and lumbar spine without contrast. TECHNIQUE: Multiple contiguous axial images were obtained through the thoracic and lumbar spine without the use of intravenous contrast. Sagittal and coronal reformations were then performed. All CT scans use one or more of the following dose optimizing techniques: automated exposure control, MA and/or KvP adjustment based on a patient size and exam type, or iterative reconstruction. INDICATION: Spinal cord compression COMPARISON: There are no prior CT thoracic/lumbar spine examinations available for comparison. The CT chest, abdomen and pelvis exam of 03/10/2019 did note extensive adenopathy The reconstructed parasagittal images of the thoracic and lumbar spine show the vertebral body heights and alignment to be generally within normal limits. The intervertebral spaces are fairly well maintained with the exception of L5-S1. There is narrowing of the disc space at this level as well as vacuum disc formation. There is no fracture or acute bony abnormality identified. There is no sign of a mass involving the cord either. IMPRESSION: 1. There is no evidence for an acute bony abnormality and there is no sign of a mass involving the cord. 2. If clinical concern regarding an underlying abnormality of the cord persists and if further imaging is desired, then MRI would be recommended. Dictated by: Dictated on workstation # [id number]
--- NOTE | 2020-03-11 14:00 | NUR ---
SCD TO PTS RIGHT LEG ONLY, PER DR MILNER D/T RISK OF DVT. TEST RESULTS PENDING.
--- NOTE | 2020-03-11 14:27 | NUR ---
SPOKE WITH PTS REGARDING CHANGE IT PTS MENTAL STATUS. PT IS NOW CONFUSED AND DOES NOT REMEMBER CONVERSATIONS FROM THIS AM. HAS MANY QUESTIONS THAT THIS NURSE IS UNABLE TO ANSWER. RN WILL ATTEMPT TO HAVE DR RODRIGUEZ CALL AND ANSWER QUESTIONS. 1430: SPOKE WITH DR RODRIGUEZ, HE WOULD LIKE THIS RN TO REACH OUT TO DR WANG AND SEE IF HE WILL SPEAK WITH THE REGARDING THE TRANSFER TO . DR RODRIGUEZ HAS SPOKEN WITH DR WANG THIS AM AND HE IS THE ONE REQUESTING TRANSFER 1439: MESSAGE LEFT WITH DR WANG REGARDING CURRENT SITUATION.
--- NOTE | 2020-03-11 15:00 | Consultation-Cardiology ---
HPI-Cardiology Cardiology Consultation: Date of Consultation 03/11/20 Date of Admission Attending Physician Maggi Gallo MD Admitting Physician No,Local Physician Consulting Physician Katie BUITRAGO MD HPI: Time Seen by a Provider: 13:30 Chief Complaint: left cold foot This is a 64-year-old gentleman who has history of hypertension, Hodgkin lymphoma. He is undergoing chemotherapy. Covid negative. Cardiology was called due to cold left foot. Dopplerable pulses. Bluish color Review of Systems-Cardiology Review of Systems Constitutional: As described under HPI; No As described under HPI, No no symptoms reported, No chills, No fever, No lightheadedness Eyes: No As described under HPI, No no symptoms reported, No blindness, No blurred vision, No contact lenses, No drainage, No decreased acuity, No foreign body sensation, No pain, No vision change Ears/Nose/Throat: No As described under HPI, No no symptoms reported, No chronic hearing loss, No ear discharge, No ear pain, No nasal drainage, No ul cerations Respiratory: No no symptoms reported; As described under HPI; No As described under HPI, No cough, No orthopnea, No shortness of breath, No SOB with excertion Cardiovascular: No no symptoms reported; As described under HPI; No As described under HPI, No chest pain, No edema, No irregular heart rate, No lightheadedness, No palpitations Gastrointestinal: No no symptoms reported, No As described under HPI, No abdomen distended, No abdominal pain, No blood streaked bowels, No constipation, No diarrhea, No nausea, No vomiting, No stool coloration changes Genitourinary: No As described under HPI, No burning, No dysuria, No discharge, No frequency, No flank pain, No hematuria, No urgency Musculoskeletal: other (left cold foot) Skin: No rash, No skin related problems, No ulcerations Psychiatric/Neurological: No anxiety, No depression, No seizure, No focal weakness, No syncope Hematologic: No bleeding abnormalities SQT-Zwpret-Sxzewf Hx Patient Social History Alcohol Use: Denies Use Recreational Drug Use: No Smoking Status: Never a Smoker 2nd Hand Smoke Exposure: No Recent Foreign Travel: No Recent Infectious Disease Expo: No Immunizations Up To Date Tetanus Booster (TDap): Unknown Past Medical History PMH As described under Assessment. Allergies and Home Medications Allergies Coded Allergies: No Known Drug Allergies (Unverified , 04/19/19) Home Medications Docusate Sodium 100 Mg Capsule, 200 MG PO DAILY PRN for CONSTIPATION-1ST LINE, (Reported) USES ONLY IF TAKING PAIN MEDICATIONS Hydrocodone/Acetaminophen 1 Each Tablet, 1-2 TAB PO Q4H Prescribed by: JYOTHI PEREZ on 03/08/20 0844 Multivitamin 1 Each Tab.chew, 2 EACH PO DAILY, (Reported) Pantoprazole Sodium 40 Mg Tablet.dr, 40 MG PO DAILY PRN for HEARTBURN, (Reported) Polyethylene Glycol 3350 17 Gm Powd.pack, 17 GM PO DAILY PRN for CONSTIPATION- 2ND LINE, (Reported) USES ONLY IF TAKING PAIN MEDICATIONS Tamsulosin HCl 0.4 Mg Cap, 0.4 MG PO DAILY PRN for KIDNEY STONES, (Reported) Patient Home Medication List Home Medication List Reviewed: Yes Physical Exam-Cardiology Physical Exam Vital Signs/I&O 03/11/20 03/11/20 13:00 15:44 Temp 36.8 Pulse 117 118 Resp 18 B/P (MAP) 128/88 (101) Pulse Ox 95 O2 Delivery Room Air 03/12/20 00:00 Intake Total 50 ml Output Total 100 ml Balance -50 ml Capillary Refill : Greater Than 3 Seconds Constitutional: appears stated age; No apparent distress; well-developed, well- nourished HEENT: PERRL; No discharge; hearing is well preserved, oral hygience is good; No ulceration, No xanthelasmas are seen Neck: No carotid bruit; carotid pulses are 2 + bilaterally Respiratory: chest is bilaterally symmetric, lungs clear to auscultation Cardiovascular: regular rate-rhythm, S1 and S2 Gastrointestinal: soft, audible bowel sounds; No spleenomegaly Rectal: deferred Extremities: No clubbing, No cyanosis; significant edema (left lower extremity) Neurologic/Psychiatric: alert, power is 5/5 both on sides Skin: cyanosis (left foot), cool (left foot) Data Review Labs Laboratory Tests 03/11/20 02:25: White Blood Count 15.9H, Red Blood Count 3.63L, Hemoglobin 10.0L, Hematocrit 32L , Mean Corpuscular Volume 88, Mean Corpuscular Hemoglobin 28, Mean Corpuscular Hemoglobin Concent 31L, Red Cell Distribution Width 23.6H, Platelet Count 76L, Mean Platelet Volume 10.3, Immature Granulocyte % (Auto) 1, Neutrophils (%) (Auto) 88H, Lymphocytes (%) (Auto) 3L, Monocytes (%) (Auto) 8, Eosinophils (%) (Auto) 0, Basophils (%) (Auto) 0, Neutrophils # (Auto) 14.0H, Lymphocytes # (A uto) 0.5L, Monocytes # (Auto) 1.3H, Eosinophils # (Auto) 0.0, Basophils # (Auto) 0.0, Immature Granulocyte # (Auto) 0.1, Prothrombin Time 20.4H, INR Comment 1.7H , Activated Partial Thromboplast Time 52H, Fibrinogen 230, D-Dimer 2.66H, Sodium Level 133L, Potassium Level 4.8, Chloride Level 101, Carbon Dioxide Level 19L, Anion Gap 13, Blood Urea Nitrogen 53H, Creatinine 0.97, Estimat Glomerular Filtration Rate > 60, BUN/Creatinine Ratio 55, Glucose Level 119H, Calcium Level 10.1, Phosphorus Level 3.8, Magnesium Level 2.5H 03/11/20 06:02: Lactic Acid Level 3.10*H 03/11/20 12:01: Lactic Acid Level 2.82*H Microbiology 03/10/20 MRSA Screen - Final, Complete MRSA not isolated 03/10/20 Blood Culture - Preliminary, Resulted No growth 03/10/20 Urine Culture - Final, Complete NO GROWTH A/P-Cardiology Assessment/Admission Diagnosis cold left foot, lymphoma Plan - dopplerable pulses. urgent arterial ultrasound showed normal arterial blood flow. - Venous dopplers showed left lower extremity DVT - start oral anticoagulation. Patient is being transferred to for oncology services. Thank you for your consultation. Please call me if you have any questions. Gabriele Buitrago MD, FACP, FACC, FSCAI, FHRS, CCDS Interventional Cardiology Cardiac Electrophysiology Vascular Medicine and Endovascular Interventions Clinical Quality Measures DVT/VTE Risk/Contraindication: Risk Factor Score Per Nursin RFS Level Per Nursing on Admit: 4+=Very High Katie BUITRAGO MD Mar 11, 2020 15:00
--- NOTE | 2020-03-11 15:28 | NUR ---
RECEIVED PHONE CALL FROM DR HENDRIX, HE WILL CALL NOW AND SPEAK WITH HER ABOUT TRANSFER TO .
--- NOTE | 2020-03-11 15:47 | NUR ---
REPORT CALLED TO CYDNEY ANDRADE AT THIS TIME. WILL CALL FOR TRANSPORT AT THIS TIME
--- NOTE | 2020-03-11 16:46 | NUR ---
PT TAKEN BY [facility]. ALL BELONGINGS TAKEN WITH PT. PT VERY AGITATED AND CONFUSED AND NOT SURE IF HE WANTS TO GO TO [facility] OR WHY HE IS GOING. THIS WAS EXPLAINED TO PT, PT DOES NOT BELIEVE THAT HE NEEDS TO GO ANYWHERE OR HAS ANYTHING WRONG WITH HIM THAT HE NEEDS TO GO ANYWHERE. PT REINFORMED WHY AND WHERE HE WAS GOING. PT CONTINUES TO BE VERY CONFUSED.
--- NOTE | 2020-03-11 17:03 | NUR ---
PHONE ALL PLACED TO PTS . UPDATE GIVEN REGARDING PTS CONFUSION. STATES THAT THINKING BACK, PT HAS BEEN FORGETTING THINGS THAT HAVE HAPPENED. WAS GIVEN PHONE NUMBER TO FLOOR ON [facility] ALONG WITH ROOM NUMBER. PT STATES SHE HAS NO FURTHER QUESTIONS OR CONCERNS.
--- NOTE | 2020-03-12 07:43 | NUR ---
Received dietary consult for MST score. Note pt has discharged at this time. Nicol Waters, MS RD LD
[2020-03-12] MEDS ORDERED: TROUGH ORDER-PHARMACY XX NR (13:00)
== END 2020-03-11 16:46 | disposition short-term general hospital (02) | DRG 871 ==
LOC: EDUNIT# 07:25 → ER 07:28 → ICU 11:20 → CSD 19:41
PROVIDERS: ADMIT Internal Medicine; ATTEND Internal Medicine
DX: A41.9 Sepsis, unspecified organism (principal); R65.21 Severe sepsis with septic shock; J18.9 Pneumonia, unspecified organism; C81.90 Hodgkin lymphoma, unspecified, unspecified site; E87.2 Acidosis; N17.9 Acute kidney failure, unspecified; E46 Unspecified protein-calorie malnutrition; I82.402 Acute embolism and thrombosis of unspecified deep veins of left lower extremity; E86.0 Dehydration; I10 Essential (primary) hypertension; D69.6 Thrombocytopenia, unspecified; K76.9 Liver disease, unspecified; D73.89 Other diseases of spleen; E83.52 Hypercalcemia
CPT/HCPCS: 36415; 51702; 71045; 71260; 72128; 72131; 74177; 80048; 80053; 81000; 83605; 83735; 84100; 84145; 85007; 85025; 85027; 85379; 85384; 85610; 85730; 86141; 87040; 87081; 87088; 93926; 93970